=== PATIENT | female | born 1935 | race Two or more races ===

== ENCOUNTER 2020-12-14 09:30 | Outpatient (REF) | payer MEDICARE, SELFPAY ==
[2020-12-14 10:36] LABS: MANUAL DIFF FLAG NO
[2020-12-14 10:48] LABS: Basophils Percent Auto 0.5 % (0-2); Eosinophils Absolute Auto 0.9 X10*3/uL (0.0-0.4); Eosinophils Percent Auto 16.3 % (0-4); Hematocrit 33.4 % (37-47); Hemoglobin 10.8 g/dl (12.0-16.0); Lymphocytes Percent Auto 35.9 % (20-40); Mean Corpuscular HGB Conc 32.3 g/dl (31.0-35.0); Mean Corpuscular Volume 92.8 fL (80-98); Mean Platelet Volume 10.8 fL (9.4-12.3); Monocytes Absolute Auto 0.4 X10*3/uL (0.1-1.2); Monocytes Percent Auto 7.5 % (2-11); Neutrophils Absolute Auto 2.2 X10*3/uL (2.0-8.3); Neutrophils Percent Auto 39.8 % (45-73); Platelet Count 174 X10*3/uL (160-400); Red Cell Distribution Width 12.7 % (11.0-16.0); White Blood Count 5.6 X10*3/uL (4.8-10.8)
[2020-12-14 10:58] LABS: Estimated Average Glucose 131 mg/dL; Hemoglobin A1c % 6.2 %
[2020-12-14 11:19] LABS: Creatinine Urine 118.08 mg/dL; Microalbum/Creatinine Ratio Ur 77.9 ug/mg cr
[2020-12-14 11:44] LABS: Alanine Aminotransferase 13 U/L (0-31); Albumin Level 3.9 g/dL (3.5-5.0); Alkaline Phosphatase 61 U/L (39-117); Anion Gap 9 (12-20); Aspartate Amino Transferase 12 U/L (5-31); Bilirubin Direct 0.3 mg/dL (0.0-0.5); Blood Urea Nitrogen 29 mg/dL (9-16); Calcium 9.8 mg/dL (8.4-10.2); Carbon Dioxide 27 mmol/L (22-29); Chloride 107 mmol/L (96-108); Cholesterol 193 mg/dL; Estimated Glomerular Filt Rate 43; Glucose Fasting 107 mg/dL (60-99); HDL Cholesterol 41 mg/dL; LDL Cholesterol Calculated 99 mg/dl; Potassium 4.3 mmol/L (3.3-5.1); Sodium 139 mmol/L (135-145); Total Protein 7.1 g/dL (6.5-8.0); Triglycerides 265 mg/dL
== END 2020-12-14 09:31 | disposition home or self-care (01) ==
LOC: HO.LAB 09:30
PROVIDERS: PCP Nurse Practitioner Family; Visit Provider Nurse Practitioner Family
DX: Z00.00 Encounter for general adult medical examination without abnormal findings (principal)
CPT/HCPCS: 36415; 80048; 80061; 80076; 82043; 83036; 85025

== ENCOUNTER 2021-04-21 09:31 | Outpatient (REF) | payer MEDICARE, SELFPAY ==
[2021-04-21 10:23] LABS: MANUAL DIFF FLAG NO
[2021-04-21 10:28] LABS: Basophils Percent Auto 0.3 % (0-2); Eosinophils Absolute Auto 0.9 X10*3/uL (0.0-0.4); Eosinophils Percent Auto 11.8 % (0-4); Hematocrit 33.2 % (37-47); Hemoglobin 11.1 g/dl (12.0-16.0); Imm Gran Abs Auto 0.02 X10*3/uL (0.00-0.03); Imm Gran Pct Auto 0.3 % (0.0-0.4); Lymphocytes Absolute Auto 2.6 X10*3/uL (1.2-4.9); Lymphocytes Percent Auto 36.3 % (20-40); Mean Corpuscular HGB Conc 33.4 g/dl (31.0-35.0); Mean Corpuscular Hemoglobin 30.4 pg (27.0-33.0); Mean Platelet Volume 10.6 fL (9.4-12.3); Monocytes Absolute Auto 0.5 X10*3/uL (0.1-1.2); Monocytes Percent Auto 7.2 % (2-11); Neutrophils Absolute Auto 3.2 X10*3/uL (2.0-8.3); Neutrophils Percent Auto 44.1 % (45-73); Platelet Count 161 X10*3/uL (160-400); Red Blood Count 3.65 X10*6/uL (4.20-5.50); Red Cell Distribution Width 12.4 % (11.0-16.0); White Blood Count 7.2 X10*3/uL (4.8-10.8)
[2021-04-21 10:56] LABS: Estimated Average Glucose 117 mg/dL; Hemoglobin A1c % 5.7 %
[2021-04-21 11:37] LABS: Appearance Urine CLOUDY; Color Urine YELLOW; Glucose Urine UA NEG (NEG); Leukocyte Esterase Urine 1+ (NEG); Nitrite Urine NEG (NEG); PH 5.5 (5.0-8.0); Specific Gravity - Urine >= 1.030 (1.005-1.025); UACC Culture Trigger YES; Urine Blood TRACE (NEG); Urine Ketones NEG (NEG); Urine Protein TRACE MG/DL (NEG-TRACE)
[2021-04-21 11:43] LABS: TSH reflex Free T4 1.14 uIU/mL (0.32-4.0); Vitamin D 25-OH Total 27.8 ng/mL (>30)
[2021-04-21 11:54] LABS: Alanine Aminotransferase 12 U/L (0-31); Albumin Level 3.8 g/dL (3.5-5.0); Alkaline Phosphatase 65 U/L (39-117); Anion Gap 10 (12-20); Aspartate Amino Transferase 13 U/L (5-31); Bilirubin Total 0.9 mg/dL (0.0-1.0); Blood Urea Nitrogen 33 mg/dL (9-16); Calcium 10.5 mg/dL (8.4-10.2); Carbon Dioxide 25 mmol/L (22-29); Chloride 108 mmol/L (96-108); Cholesterol 176 mg/dL; Estimated Glomerular Filt Rate 39; Glucose Fasting 124 mg/dL (60-99); HDL Cholesterol 39 mg/dL; LDL Cholesterol Calculated 93 mg/dl; Sodium 139 mmol/L (135-145); Triglycerides 223 mg/dL
[2021-04-21 12:02] LABS: Creatinine Urine 156.51 mg/dL; Microalbum/Creatinine Ratio Ur 63.2 ug/mg cr
[2021-04-21 12:05] LABS: Bacteria Urine 3+ /LPF; Squamous Epithelial Cell Urine 2+ /LPF
== END 2021-04-21 09:32 | disposition home or self-care (01) ==
LOC: HO.LAB 09:31
PROVIDERS: PCP Internal Medicine; Visit Provider Internal Medicine
DX: E78.00 Pure hypercholesterolemia, unspecified (principal); E55.9 Vitamin D deficiency, unspecified; E11.22 Type 2 diabetes mellitus with diabetic chronic kidney disease; I12.9 Hypertensive chronic kidney disease with stage 1 through stage 4 chronic kidney disease, or unspecified chronic kidney disease; N18.2 Chronic kidney disease, stage 2 (mild); K20.90 Esophagitis, unspecified without bleeding; K59.00 Constipation, unspecified; E66.3 Overweight
CPT/HCPCS: 36415; 80053; 80061; 81001; 82043; 82306; 83036; 84443; 85025; 87086

== ENCOUNTER 2021-06-19 11:48 | Emergency (ER) | payer MEDICARE, SELFPAY ==
--- NOTE | ~2021-06-19 | XR_ITS ---
EXAMINATION: XR ELBOW, RIGHT CLINICAL INFORMATION: Right elbow swelling COMPARISON: None TECHNIQUE: AP, lateral, and oblique views of the right elbow. FINDINGS: The bones are normal. No fracture or joint effusion. Alignment is anatomic. Joint spaces are maintained. Soft tissue swelling of the right elbow. XR/XR elbow RT 2V IMPRESSION: Soft tissue swelling surrounding the right elbow.
[2021-06-19 12:08] VITALS: BP 145/64; PULSE 75; RESP 18; TEMP 36.8; O2SAT 97; BMI 27.1
--- NOTE | 2021-06-19 13:41 | ED_ITS ---
HPI - Extremity Problem General Chief complaint: Extremity Problem Stated complaint: R ARM SWELLING Time Seen by Provider: 06/19/21 13:39 Source: patient and family Mode of arrival: ambulatory Limitations: no limitations History of Present Illness MD Complaint: extremity pain (R elbow pain and redness) Onset (ago): day(s) (yesterday ) Pain Consistency: constant Location: right and elbow Quality: aching Radiation: none Relieving factors: nothing Exacerbating factors: range of motion and palpation Associated symptoms: denies other symptoms Related Data Home Medications Medication Instructions Recorded Confirmed docusate sodium 50 mg capsule mg PO DAILY PRN 08/18/20 04/23/21 insulin syringe-needle U-100 0.3 #10 ea 08/18/20 04/23/21 mL 31 gauge x 5/16 latanoprost 0.005 % eye drops 1 drp OPHTHALMIC (EYE) BEDTIME 08/18/20 04/23/21 blood sugar diagnostic #10 ea 10/12/20 04/23/21 Previous Rx's Medication Instructions Recorded lancets 30 gauge #100 ea 10/08/20 insulin syringe-needle U-100 1 mL 1 ml MISCELLANEOUS BID 30 Days #60 10/12/20 31 gauge x 5/16 (BD Insulin ea Syringe Ultra-Fine) insulin human U-100 NPH-regulr 35 unit SUBCUT BID #30 ml 11/07/20 70-30 mix 100 unit/mL subcutaneous susp (Novolin 70/30 U-100 Insulin) pantoprazole 40 mg tablet,delayed 40 mg PO DAILY #90 tab 11/29/20 release atorvastatin 40 mg tablet 40 mg PO DAILY 90 Days #90 tab 01/12/21 omega-3 fatty acids 1,000 mg 1,000 mg PO BID 30 Days #60 cap 01/12/21 capsule (Fish Oil Concentrate) cholecalciferol (vitamin D3) 25 25 mcg PO DAILY 90 Days #90 cap 01/15/21 mcg (1,000 unit) capsule blood sugar diagnostic #100 ea 04/23/21 dorzolamide 22.3 mg-timolol 6.8 1 drp OPHTHALMIC (EYE) BID #30 ml 04/24/21 mg/mL eye drops blood sugar diagnostic (OneTouch #100 ea 05/03/21 Ultra Test) lisinopril 40 mg tablet 40 mg PO DAILY #90 tab 10/20/21 cephalexin 500 mg capsule 500 mg PO BID 7 Days #14 cap 06/19/21 doxycycline hyclate 100 mg capsule 100 mg PO BID 7 Days #14 cap 06/19/21 ondansetron 4 mg disintegrating 4 mg PO Q8H PRN #20 tab 06/19/21 tablet oxycodone 5 mg tablet 2.5 mg PO TID PRN #8 tab 06/19/21 Allergies Allergy/AdvReac Type Severity Reaction Status Date / Time acetaminophen [Tylenol] Allergy Unknown stomach Verified 04/23/21 16:19 upset aspirin [ASA] Allergy Unknown STOMACH Verified 04/23/21 16:19 UPSET insulin isophane (NPH) Allergy Unknown choking Verified 04/23/21 16:19 [Humulin 70/30 U-100 Insulin] sensation insulin regular Allergy Unknown choking Verified 04/23/21 16:19 [Humulin 70/30 U-100 Insulin] sensation metformin AdvReac Unknown dizziness, Verified 04/23/21 16:19 stomach upset Review of Systems Review of Systems: Constitutional : No Fever, No Chills ENT/Mouth : No Ear Pain, No Hoarseness, No sore throat Eyes: No Eye Pain, No Swelling, No Redness, No Foreign Body Cardiovascular : No Chest Pain, No SOB Respiratory : No Cough, No Dyspnea Gastrointestinal : No Nausea, No Vomiting, No Diarrhea, No abdominal Pain Genitourinary : No Dysuria, No Hematuria Musculoskeletal : positive joint pain, No Myalgias, pos Joint Swelling Skin : No Skin lacerations, No rash Neuro : No Weakness, No Numbness, No Loss of Consciousness, No Dizziness, No Headache Psych : No Anxiety/Panic, No Depression Heme/Lymph: no easy bruising, no Lymphadenopathy Endocrine : No Polyuria, No Polydipsia All other systems reviewed and are negative [facility] Past Medical History Attestation statement: The following information was validated with the patient. Medical History Benign essential hypertension Chronic kidney disease, stage III (moderate) Constipation Esophagitis GERD (gastroesophageal reflux disease) Glaucoma of both eyes Hypercalcemia Lumbar spondylosis Overweight (BMI 25.0-29.9) Peripheral neuropathy Primary osteoarthritis 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 Mother Diabetes Stroke Son No problems noted. Son No problems noted. Daughter No problems noted. Social History Social History Housing: Apartment Alcohol intake: never Patient Tobacco Use Status: Never used Tobacco Second Hand Smoke Exposure: Yes Advance Directives: No Advance Directives Information Provided: No service: No Current occupational status: disabled Physical Exam Vital Signs: Vital Signs: Last Vital Signs Temp 98.3 F 06/19/21 12:08 Pulse 75 06/19/21 12:08 Resp 18 06/19/21 12:08 BP 145/64 H 06/19/21 12:08 Pulse Ox 97 06/19/21 12:08 Body Mass Index 27.1 Appearance: Alert. Oriented X3. No acute distress. Eyes: Pupils equal, round and reactive to light. ENT: Pharynx normal. Neck: Normal inspection. Neck supple. CVS: Normal heart rate and rhythm. Pulses normal. Respiratory: No respiratory distress. Breath sounds normal. Abdomen: Soft and nontender. Skin: Skin warm and dry. Normal skin color. Extremities: No lower extremity edema. R elbow olecranon mild swelling and mild erythema no extension no joint effusion very minimal distal NV intact, full ROM Neuro: Oriented X 3. No motor deficit. No sensory deficit. Course Course Course Narrative: no fevers no vomiting, no WBC count neg lactic acid - will DC home with PO antibiotics MDM - Extremity (Nontraumatic) MDM Narrative Medical decision making narrative: 85 yo female with DM, CKD, obesity, HLD, here with R elbow pain mild erythema/swelling isolated to olecranon - likely infected bursitis skin overlying is intact no joint effusion - full ROM, very mild at this time will obtain labs, start on antibiotics and instruct 24 hours outpatient oral abx and to return if this worsens - currently symptoms are very mild and PE shows no signs of septic joint. Lab Data Result diagrams: 06/19/21 14:12 06/19/21 14:12 Labs: Lab Results 06/19/21 06/19/21 06/19/21 Range/Units 14:12 14:12 14:12 WBC 10.1 (4.8-10.8) X10*3/uL RBC 3.51 L (4.20-5.50) X10*6/uL Hgb 10.7 L (12.0-16.0) g/dl Hct 32.2 L (37.0-47.0) % MCV 91.7 (80.0-98.0) fL MCH 30.5 (27.0-33.0) pg MCHC 33.2 (31.0-35.0) g/dl RDW 12.7 (11.0-16.0) % Plt Count 153 L (160-400) X10*3/uL MPV 10.5 (9.4-12.3) fL Absolute Nucleated RBC 0.000 (0.0-0.012) X10*3/uL Nucleated RBC % (auto) 0.0 (0.0-0.2) /100WBC Sodium 136 (135-145) mmol/L Potassium 4.3 (3.3-5.1) mmol/L Chloride 105 (96-108) mmol/L Carbon Dioxide 23 (22-29) mmol/L Anion Gap 12 (12-20) BUN 22 H (9-16) mg/dL Creatinine 1.28 (0.5-1.4) mg/dL Estim Creat Clear Calc 32.3 Estimated GFR 40 Random Glucose 156 H (60-115) mg/dL Lactic Acid 1.3 (0.5-2.0) mmol/L Calcium 9.5 D (8.4-10.2) mg/dL Discharge Plan Discharge Clinical Impression: Cellulitis Bursitis, olecranon Qualifiers: Laterality: right Qualified Code(s): M70.21 - Olecranon bursitis, right elbow Patient Disposition: Home, Self-Care Instructions: Cellulitis (ED), Elbow Bursitis (ED) Additional Instructions: return to ED for any worsening symptoms or concerns RETURN IF REDNESS WORSENS / SWELLING WORSENS/ FEVERS Prescriptions: New doxycycline hyclate 100 mg capsule 100 mg PO BID 7 Days Qty: 14 RF: 0 cephalexin 500 mg capsule 500 mg PO BID 7 Days Qty: 14 RF: 0 ondansetron 4 mg tablet,disintegrating 4 mg PO Q8H PRN (Reason: nausea and vomiting) Qty: 20 RF: 0 oxycodone 5 mg tablet 2.5 mg PO TID PRN (Reason: pain) Qty: 8 RF: 0 No Action (DME) lancets 30 gauge misc See Rx Instructions ea .ROUTE .MEDSUPPLY Qty: 100 RF: 0 (DME) blood sugar diagnostic Strip See Rx Instructions .ROUTE .MEDSUPPLY Qty: 10 RF: 0 Hold Instructions: Doctor's Order insulin syringe-needle U-100 [BD Insulin Syringe Ultra-Fine] 1 mL 31 gauge x 5/16 syringe 1 ml miscellaneous BID 30 Days Qty: 60 RF: 11 insulin NPH and regular human [Novolin 70/30 U-100 Insulin] 100 unit/mL (70- 30) suspension 35 unit subcut BID Qty: 30 RF: 5 pantoprazole 40 mg tablet,delayed release (DR/EC) 40 mg PO DAILY Qty: 90 RF: 1 cholecalciferol (vitamin D3) 25 mcg (1,000 unit) capsule 25 mcg PO DAILY 90 Days Qty: 90 RF: 3 dorzolamide-timolol 22.3-6.8 mg/mL drops 1 drp ophthalmic (eye) BID Qty: 30 RF: 0 (DME) OneTouch Ultra Test Strip See Rx Instructions .Route Qty: 100 RF: 0 lisinopril 40 mg tablet 40 mg PO DAILY Qty: 90 RF: 1 (DME) insulin syringe-needle U-100 0.3 mL 31 gauge x 5/16 syringe See Rx Instructions ea .ROUTE BID Qty: 10 RF: 0 latanoprost 0.005 % drops 1 drp ophthalmic (eye) BEDTIME RF: 0 Stool Softener 50 mg capsule PO DAILY PRN (Reason: constipation) RF: 0 atorvastatin 40 mg tablet 40 mg PO DAILY 90 Days Qty: 90 RF: 1 omega-3 fatty acids [Fish Oil Concentrate] 1,000 mg capsule 1,000 mg PO BID 30 Days Qty: 60 RF: 12 (DME) OneTouch Ultra Blue Test Strip Strip See Rx Instructions .ROUTE .MEDSUPPLY Qty: 100 RF: 1 Print Language: Irish
[2021-06-19] MEDS: cefEPime HCl 1 GM in 0.9 % Sodium Chloride 50 ML IV (14:13)
[2021-06-19] MEDS: Ondansetron ODT 4 MG TAB.RAPDIS TRANSLINGU (14:13)
[2021-06-19] MEDS: oxyCODONE HCl Immed Release 5 MG TABLET PO (14:13)
[2021-06-19 14:23] LABS: Hematocrit 32.2 % (37.0-47.0); Hemoglobin 10.7 g/dl (12.0-16.0); Mean Corpuscular HGB Conc 33.2 g/dl (31.0-35.0); Mean Corpuscular Hemoglobin 30.5 pg (27.0-33.0); Mean Corpuscular Volume 91.7 fL (80.0-98.0); Mean Platelet Volume 10.5 fL (9.4-12.3); Platelet Count 153 X10*3/uL (160-400); Red Blood Count 3.51 X10*6/uL (4.20-5.50); Red Cell Distribution Width 12.7 % (11.0-16.0); White Blood Count 10.1 X10*3/uL (4.8-10.8)
[2021-06-19 14:29] LABS: Lactic Acid 1.3 mmol/L (0.5-2.0)
[2021-06-19 14:35] LABS: Anion Gap 12 (12-20); Blood Urea Nitrogen 22 mg/dL (9-16); Calcium 9.5 mg/dL (8.4-10.2); Carbon Dioxide 23 mmol/L (22-29); Chloride 105 mmol/L (96-108); Creatinine Clr Calc Pharmacy 32.3; Estimated Glomerular Filt Rate 40; Glucose Random 156 mg/dL (60-115); Potassium 4.3 mmol/L (3.3-5.1); Sodium 136 mmol/L (135-145)
[2021-06-19 15:41] VITALS: BP 144/68; PULSE 74
== END 2021-06-19 15:42 | disposition home or self-care (01) ==
PROVIDERS: Emergency Provider Emergency Medicine; PCP Internal Medicine
DX: L03.113 Cellulitis of right upper limb (principal); R22.31 Localized swelling, mass and lump, right upper limb; Z79.899 Other long term (current) drug therapy
CPT/HCPCS: 36415; 73070; 80048; 83605; 85027; 87040; 96374; 99284; 99285; J0692

== ENCOUNTER 2021-07-20 09:34 | Outpatient (REF) | payer MEDICARE, SELFPAY ==
[2021-07-20 09:55] LABS: MANUAL DIFF FLAG NO
[2021-07-20 10:24] LABS: Basophils Percent Auto 0.5 % (0-2); Hematocrit 32.6 % (37.0-47.0); Hemoglobin 10.5 g/dl (12.0-16.0); Imm Gran Abs Auto 0.02 X10*3/uL (0.00-0.03); Imm Gran Pct Auto 0.3 % (0.0-0.4); Lymphocytes Absolute Auto 2.5 X10*3/uL (1.2-4.9); Lymphocytes Percent Auto 38.4 % (20-40); Mean Corpuscular HGB Conc 32.2 g/dl (31.0-35.0); Mean Corpuscular Hemoglobin 29.6 pg (27.0-33.0); Mean Corpuscular Volume 91.8 fL (80.0-98.0); Mean Platelet Volume 10.6 fL (9.4-12.3); Monocytes Absolute Auto 0.5 X10*3/uL (0.1-1.2); Monocytes Percent Auto 7.4 % (2-11); Neutrophils Absolute Auto 2.5 x10*3/uL (2.0-8.3); Neutrophils Percent Auto 38.4 % (45-73); Platelet Count 177 X10*3/uL (160-400); Red Blood Count 3.55 X10*6/uL (4.20-5.50); Red Cell Distribution Width 12.4 % (11.0-16.0); White Blood Count 6.4 X10*3/uL (4.8-10.8)
[2021-07-20 10:32] LABS: Estimated Average Glucose 126 mg/dL
[2021-07-20 10:57] LABS: Alanine Aminotransferase 17 U/L (0-31); Albumin Level 3.7 g/dL (3.5-5.0); Alkaline Phosphatase 62 U/L (39-117); Anion Gap 11 (12-20); Aspartate Amino Transferase 18 U/L (5-31); Bilirubin Total 0.8 mg/dL (0.0-1.0); Blood Urea Nitrogen 33 mg/dL (9-16); Calcium 10.1 mg/dL (8.4-10.2); Carbon Dioxide 26 mmol/L (22-29); Chloride 107 mmol/L (96-108); Cholesterol 148 mg/dL; Estimated Glomerular Filt Rate 39; Glucose Fasting 101 mg/dL (60-99); HDL Cholesterol 43 mg/dL; LDL Cholesterol Calculated 67 mg/dl; Potassium 4.6 mmol/L (3.3-5.1); Sodium 139 mmol/L (135-145); Total Protein 7.1 g/dL (6.5-8.0); Triglycerides 190 mg/dL
[2021-07-20 11:21] LABS: TSH reflex Free T4 1.74 uIU/mL (0.32-4.0); Vitamin D 25-OH Total 27.5 ng/mL (>30)
[2021-07-20 11:46] LABS: Appearance Urine CLOUDY; Color Urine YELLOW; Glucose Urine UA NEG (NEG); Leukocyte Esterase Urine 1+ (NEG); Nitrite Urine NEG (NEG); Specific Gravity - Urine >= 1.030 (1.005-1.025); UACC Culture Trigger YES; Urine Blood 1+ (NEG); Urine Ketones NEG (NEG); Urine Protein TRACE MG/DL (NEG-TRACE)
[2021-07-20 12:30] LABS: Bacteria Urine 1+ /LPF; Mucus Urine 1+ /LPF; Squamous Epithelial Cell Urine 3+ /LPF
== END 2021-07-20 09:35 | disposition home or self-care (01) ==
LOC: HO.LAB 09:34
PROVIDERS: PCP Internal Medicine; Visit Provider Internal Medicine
DX: E78.00 Pure hypercholesterolemia, unspecified (principal); E55.9 Vitamin D deficiency, unspecified; E11.9 Type 2 diabetes mellitus without complications; I10 Essential (primary) hypertension
CPT/HCPCS: 36415; 80053; 80061; 81001; 81003; 82306; 83036; 84443; 85025; 87086

== ENCOUNTER 2021-10-19 14:28 | Emergency (ER) | payer MEDICARE, SELFPAY ==
[2021-10-19 14:34] VITALS: BP 142/67; PULSE 57; RESP 18; TEMP 36.7; O2SAT 100; BMI 27.1
--- NOTE | 2021-10-19 14:41 | ECG_ITS ---
Test Reason : ALTERED Blood Pressure : / mmHG Vent. Rate : 055 BPM Atrial Rate : 055 BPM P-R Int : 160 ms QRS Dur : 080 ms QT Int : 396 ms P-R-T Axes : 015 000 056 degrees QTc Int : 378 ms Sinus bradycardia Septal infarct (cited on or before 20-AUG-2019) Abnormal ECG When compared with ECG of 20-AUG-2019 16:58, No significant changes seen Referred By: Generic ED Physician Electronically Signed By:Tate Dillon
[2021-10-19 15:12] LABS: MANUAL DIFF FLAG NO
[2021-10-19 15:13] LABS: Basophils Percent Auto 0.3 % (0-2); Eosinophils Absolute Auto 0.7 X10*3/uL (0.0-0.4); Eosinophils Percent Auto 11.1 % (0-4); Hematocrit 33.3 % (37.0-47.0); Hemoglobin 10.9 g/dl (12.0-16.0); Imm Gran Abs Auto 0.01 X10*3/uL (0.00-0.03); Imm Gran Pct Auto 0.2 % (0.0-0.4); Lymphocytes Absolute Auto 2.3 X10*3/uL (1.2-4.9); Mean Corpuscular HGB Conc 32.7 g/dl (31.0-35.0); Mean Corpuscular Hemoglobin 29.7 pg (27.0-33.0); Mean Corpuscular Volume 90.7 fL (80.0-98.0); Mean Platelet Volume 10.7 fL (9.4-12.3); Monocytes Absolute Auto 0.4 X10*3/uL (0.1-1.2); Monocytes Percent Auto 6.3 % (2-11); Neutrophils Percent Auto 46.1 % (45-73); Platelet Count 150 X10*3/uL (160-400); Red Blood Count 3.67 X10*6/uL (4.20-5.50); White Blood Count 6.5 X10*3/uL (4.8-10.8)
[2021-10-19 15:25] LABS: COVID-19 Test Negative (Negative)
[2021-10-19 15:29] LABS: Alanine Aminotransferase 11 U/L (0-31); Albumin Level 3.8 g/dL (3.5-5.0); Alkaline Phosphatase 63 U/L (39-117); Anion Gap 11 (12-20); Aspartate Amino Transferase 18 U/L (5-31); Bilirubin Total 0.7 mg/dL (0.0-1.0); Blood Urea Nitrogen 33 mg/dL (9-16); Calcium 10.1 mg/dL (8.4-10.2); Carbon Dioxide 25 mmol/L (22-29); Chloride 106 mmol/L (96-108); Creatinine Clr Calc Pharmacy 23.6; Estimated Glomerular Filt Rate 28; Glucose Random 114 mg/dL (60-115); Potassium 4.6 mmol/L (3.3-5.1); Sodium 137 mmol/L (135-145)
[2021-10-19 15:33] LABS: Troponin-I High Sensitivity 43.3 ng/L (<3.5-17.0)
== END 2021-10-19 21:03 | disposition left against medical advice (07) ==
LOC: HO.ED 21:02
PROVIDERS: Emergency Provider Emergency Medicine; PCP Internal Medicine
DX: R47.81 Slurred speech (principal); R53.1 Weakness; Z20.822 Contact with and (suspected) exposure to COVID-19; Z79.899 Other long term (current) drug therapy
CPT/HCPCS: 36415; 80053; 84484; 85025; 87635; 93005; 99282; 99283

== ENCOUNTER 2021-11-03 13:07 | Outpatient (REF) | payer MEDICARE, SELFPAY ==
--- NOTE | ~2021-11-03 | CT_ITS ---
EXAMINATION: CT HEAD WITHOUT CONTRAST CLINICAL INFORMATION: Slurred speech COMPARISON: MRI of September 14, 2016 TECHNIQUE: Contiguous axial imaging was performed from the skull base to vertex without intravenous administration of contrast. This CT examination was performed using dose optimization techniques as appropriate, variously including the following: *Automated exposure control *Adjustment of mA and/or kV according to patient size (this includes techniques or standardized protocols for targeted exams where dose is matched to indication/reason for exam; i.e. extremities or head) *Use of iterative reconstruction technique DLP: 590 mGy-cm FINDINGS: There is no evidence of acute intracranial hemorrhage. No abnormal mass effect or midline shift is seen. No extra-axial fluid collections are identified. There is periventricular white matter low density present consistent with microangiopathy. There is a region of diminished density seen along the right extreme capsule anteriorly. There is a asymmetric region of diminished density within the right centrum semiovale which could possibly represent an evolving infarct as well as a an old infarct. Calcification is seen within the vertebral arteries bilaterally and the carotid arteries. The ventricles are normal in size. There is no abnormal attenuation within the brain parenchyma. The osseous structures and soft tissues are normal. The mastoid air cells and visualized portions of the paranasal sinuses are well aerated. CT/CT head/brain wo con IMPRESSION: Findings consistent with microangiopathy. Question evolving right centrum semiovale probably infarct versus old infarct.
[2021-11-03 14:12] LABS: MANUAL DIFF FLAG NO
[2021-11-03 14:58] LABS: Basophils Percent Auto 0.3 % (0-2); Eosinophils Absolute Auto 0.9 X10*3/uL (0.0-0.4); Eosinophils Percent Auto 13.6 % (0-4); Hematocrit 33.3 % (37.0-47.0); Hemoglobin 10.7 g/dl (12.0-16.0); Imm Gran Abs Auto 0.01 X10*3/uL (0.00-0.03); Imm Gran Pct Auto 0.1 % (0.0-0.4); Lymphocytes Percent Auto 29.6 % (20-40); Mean Corpuscular HGB Conc 32.1 g/dl (31.0-35.0); Mean Corpuscular Hemoglobin 29.6 pg (27.0-33.0); Mean Corpuscular Volume 92.2 fL (80.0-98.0); Mean Platelet Volume 10.8 fL (9.4-12.3); Monocytes Absolute Auto 0.5 X10*3/uL (0.1-1.2); Monocytes Percent Auto 7.6 % (2-11); Neutrophils Absolute Auto 3.3 x10*3/uL (2.0-8.3); Neutrophils Percent Auto 48.8 % (45-73); Platelet Count 162 X10*3/uL (160-400); Red Blood Count 3.61 X10*6/uL (4.20-5.50); Red Cell Distribution Width 12.9 % (11.0-16.0); White Blood Count 6.7 X10*3/uL (4.8-10.8)
[2021-11-03 15:06] LABS: Estimated Average Glucose 123 mg/dL; Hemoglobin A1c % 5.9 %
[2021-11-03 15:31] LABS: Alanine Aminotransferase 15 U/L (0-31); Albumin Level 3.8 g/dL (3.5-5.0); Alkaline Phosphatase 62 U/L (39-117); Anion Gap 12 (12-20); Aspartate Amino Transferase 17 U/L (5-31); Bilirubin Total 0.8 mg/dL (0.0-1.0); Blood Urea Nitrogen 30 mg/dL (9-16); Calcium 9.9 mg/dL (8.4-10.2); Carbon Dioxide 25 mmol/L (22-29); Chloride 108 mmol/L (96-108); Cholesterol 152 mg/dL; Estimated Glomerular Filt Rate 45; Glucose Fasting 59 mg/dL (60-99); HDL Cholesterol 48 mg/dL; LDL Cholesterol Calculated 72 mg/dl; Potassium 4.2 mmol/L (3.3-5.1); Sodium 141 mmol/L (135-145); Total Protein 7.1 g/dL (6.5-8.0); Triglycerides 163 mg/dL
[2021-11-03 15:40] LABS: TSH reflex Free T4 1.23 uIU/mL (0.32-4.0); Vitamin D 25-OH Total 26.5 ng/mL (>30)
== END 2021-11-03 13:08 | disposition home or self-care (01) ==
LOC: HO.CT 13:07
PROVIDERS: PCP Internal Medicine; Visit Provider Nurse Practitioner Family
DX: R47.81 Slurred speech (principal); E78.00 Pure hypercholesterolemia, unspecified; I10 Essential (primary) hypertension; E55.9 Vitamin D deficiency, unspecified; E11.9 Type 2 diabetes mellitus without complications
CPT/HCPCS: 36415; 70450; 80053; 80061; 82306; 83036; 84443; 85025

== ENCOUNTER 2021-11-03 17:50 | Emergency (ER) | payer MEDICARE, SELFPAY ==
[2021-11-03 19:07] VITALS: BP 159/60; PULSE 61; RESP 16; TEMP 36.6; O2SAT 99; BMI 24.1
[2021-11-03 20:40] LABS: MANUAL DIFF FLAG NO
[2021-11-03 20:42] LABS: Basophils Percent Auto 0.4 % (0-2); Eosinophils Absolute Auto 0.9 X10*3/uL (0.0-0.4); Hemoglobin 10.7 g/dl (12.0-16.0); Imm Gran Abs Auto 0.01 X10*3/uL (0.00-0.03); Imm Gran Pct Auto 0.1 % (0.0-0.4); Lymphocytes Absolute Auto 2.6 X10*3/uL (1.2-4.9); Lymphocytes Percent Auto 35.7 % (20-40); Mean Corpuscular HGB Conc 32.4 g/dl (31.0-35.0); Mean Corpuscular Hemoglobin 30.2 pg (27.0-33.0); Mean Corpuscular Volume 93.2 fL (80.0-98.0); Mean Platelet Volume 10.4 fL (9.4-12.3); Monocytes Absolute Auto 0.6 X10*3/uL (0.1-1.2); Monocytes Percent Auto 8.5 % (2-11); Neutrophils Absolute Auto 3.1 x10*3/uL (2.0-8.3); Neutrophils Percent Auto 43.3 % (45-73); Platelet Count 158 X10*3/uL (160-400); Red Blood Count 3.54 X10*6/uL (4.20-5.50); White Blood Count 7.2 X10*3/uL (4.8-10.8)
[2021-11-03 20:55] LABS: Anion Gap 14 (12-20); Blood Urea Nitrogen 31 mg/dL (9-16); Calcium 9.8 mg/dL (8.4-10.2); Carbon Dioxide 21 mmol/L (22-29); Chloride 107 mmol/L (96-108); Creatinine Clr Calc Pharmacy 30.9; Estimated Glomerular Filt Rate 42; Glucose Random 162 mg/dL (60-115); Potassium 4.7 mmol/L (3.3-5.1); Sodium 137 mmol/L (135-145)
== END 2021-11-03 21:17 | disposition left against medical advice (07) ==
PROVIDERS: Emergency Provider Emergency Medicine; PCP Nurse Practitioner Family
DX: R47.81 Slurred speech (principal); Z79.899 Other long term (current) drug therapy
CPT/HCPCS: 36415; 80048; 85025; 99282; 99283

== ENCOUNTER 2021-11-04 12:33 | Inpatient (IN) | payer MEDICARE, SELFPAY ==
--- NOTE | ~2021-11-04 | US_ITS ---
EXAMINATION: US EXTRACRANIAL CAROTID DUPLEX, BILATERAL CLINICAL INFORMATION: This is an 86-year-old female with CVA. Carotid artery disease. COMPARISON: None TECHNIQUE: Real-time ultrasound and Doppler techniques (integrating B-mode 2-D vascular images, Doppler spectral analysis and color-flow Doppler imaging) were utilized to interrogate the extracranial carotid arteries, the vertebral arteries and proximal subclavian arteries bilaterally. The degree of stenosis is determined by criteria similar to NASCET. FINDINGS: Right Side: 1. There is mild atherosclerotic plaque seen in the bifurcation/proximal ICA region. 2. The common carotid artery PSV proximally is 87 cm/s and distally 96 cm/s. 3. The proximal internal carotid artery velocities are 87 cm/s systolic and 17 cm/s diastolic. 4. The proximal external carotid artery PSV is 87 cm/s. 5. The vertebral artery shows antegrade flow. 6. The subclavian artery waveforms are normal. Left Side: 1. There is mild atherosclerotic plaque seen in the bifurcation/proximal ICA region. 2. The common carotid artery PSV proximally is 126 cm/s and distally 81 cm/s. 3. The proximal internal carotid artery velocities are 61 cm/s systolic and 14 cm/s diastolic. 4. The proximal external carotid artery PSV is 80 cm/s. 5. The vertebral artery shows antegrade flow. 6. The subclavian artery waveforms are normal. US/US carotid duplex BI IMPRESSION: 1. RIGHT: Minimal, non-hemodynamically significant stenosis of the proximal right internal carotid artery corresponding to a 0-49% stenosis by velocity criteria. 2. LEFT: Minimal, non-hemodynamically significant stenosis of the proximal left internal carotid artery corresponding to a 0-49% stenosis by velocity criteria.
--- NOTE | ~2021-11-04 | MR_ITS ---
EXAMINATION: MR BRAIN WITHOUT CONTRAST CLINICAL INFORMATION: Evolving stroke. New weakness. COMPARISON: CT head from 11/03/2021. Brain MRI from 09/14/2016. TECHNIQUE: MRI of the brain was obtained using routine sequences without contrast. FINDINGS: There is a region of white matter diffusion weighted hyperintensity within the right centrum semiovale/batres radiata with minimally decreased to pseudonormalized values on the ADC map. Associated T2 FLAIR hyperintensity. No overt mass effect. No additional abnormal restricted diffusion. No evidence of acute or chronic hemorrhagic products on heme-sensitive imaging. Scattered periventricular, deep white matter, and brainstem T2 FLAIR hyperintensities consistent with moderate underlying microangiopathy. Few regions of cortical T1 shortening along the right insula consistent with laminar necrosis. Chronic lacunar infarcts of the bilateral caudate heads, right lentiform nucleus, and bilateral cerebellar hemispheres. Proportional prominence of the ventricles and sulcal spaces without evidence of obstructive hydrocephalus. No abnormal mass effect. No midline shift. Normal appearance of the pituitary gland. Normal positioning of the cerebellar tonsils. Normal arterial and venous vascular flow voids are present. Normal, homogeneous marrow signal. Mild mucosal thickening of the paranasal sinuses. No signal abnormalities within the mastoids. Bilateral lens extractions. MR/MR head/brain wo con IMPRESSION: 1. Developing late acute to early subacute white matter infarct within the right centrum semiovale/batres radiata. 2. No additional acute intracranial abnormalities. 3. Moderate underlying microangiopathy and generalized cerebral volume loss. Chronic lacunar infarcts of the deep nuclei and cerebellum.
[2021-11-04 13:33] VITALS: BP 139/62; PULSE 60; RESP 18; TEMP 36.6; O2SAT 99; BMI 23.6
--- NOTE | 2021-11-04 15:05 | ED_ITS ---
HPI - General Adult General Chief complaint: General Medical Stated complaint: MRI Time Seen by Provider: 11/04/21 13:06 Source: patient, family and contract implementation analyst Mode of arrival: ambulatory Limitations: no limitations History of Present Illness HPI narrative: 86 y/o female with history of HTN, HLD and DM sent into the ER for MRI of her brain. She had a CT scan done yesterday as an outpatient that showed question of evolving right centrum semiovale probably infarct vs old infarct. PCP sent in her into the ER for MRI. She reports generalized weakness for the last 2-3 weeks. She lives alone and has been having trouble doing her ADL's, family has had to come over and help out a lot. She saw her PCP yesterday who did blood work and a CT scan of her head. They were told to come to the ER for MRI because of abnormal results. Patient reports intermittent dizzy spells for the last 2-3 weeks and blurred vision. She also reports her swallowing feels different but she is able to eat and drink normally. She states she has numbness in both of her legs, left worse than right and it is worse at night. MD complaint: generalized weakness Onset (ago): week(s) (2) Location: left, right, upper extremity and lower extremity Radiation: non-radiation Severity: moderate Pain Consistency: constant Relieving factors: none Exacerbating factors: none Associated symptoms: malaise and other (dizziness) Treatments prior to arrival: none Related Data Home Medications Medication Instructions Recorded Confirmed insulin syringe-needle U-100 0.3 #10 ea 08/18/20 10/21/21 mL 31 gauge x 5/16 latanoprost 0.005 % eye drops 1 drp OPHTHALMIC (EYE) BEDTIME 08/18/20 11/04/21 blood sugar diagnostic #10 ea 10/12/20 10/21/21 docusate sodium 100 mg capsule 100 mg PO DAILY PRN 11/04/21 11/04/21 insulin human U-100 NPH-regulr 30 unit SUBCUT BID 11/04/21 11/04/21 70-30 mix 100 unit/mL subcutaneous susp (Novolin 70/30 U-100 Insulin) omega 4-fqq-mja-fish oil 1,000 mg 1 cap PO BID 11/04/21 11/04/21 (120 mg-180 mg) capsule (Fish Oil) Previous Rx's Medication Instructions Recorded lancets 30 gauge #100 ea 10/08/20 atorvastatin 40 mg tablet 40 mg PO DAILY 90 Days #90 tab 01/12/21 cholecalciferol (vitamin D3) 25 25 mcg PO DAILY 90 Days #90 cap 01/15/21 mcg (1,000 unit) capsule blood sugar diagnostic #100 ea 04/23/21 dorzolamide 22.3 mg-timolol 6.8 1 drp OPHTHALMIC (EYE) BID #30 ml 04/24/21 mg/mL eye drops ondansetron 4 mg disintegrating 4 mg PO Q8H PRN #20 tab 06/19/21 tablet blood sugar diagnostic (OneTouch 1 strip MISCELLANEOUS TID #100 07/28/21 Ultra Test) strip polyethylene glycol 3350 17 17 g PO DAILY 30 Days #510 g 07/28/21 gram/dose oral powder (Miralax) pantoprazole 40 mg tablet,delayed 40 mg PO DAILY #90 tab 10/19/21 release insulin syringe-needle U-100 1 mL 1 ml MISCELLANEOUS BID 30 Days #60 10/29/21 31 gauge x 5/16 (BD Insulin ea Syringe Ultra-Fine) lisinopril 40 mg tablet 40 mg PO DAILY #90 tab 11/01/21 Allergies Allergy/AdvReac Type Severity Reaction Status Date / Time aspirin [ASA] Allergy Unknown STOMACH Verified 10/21/21 15:21 UPSET insulin isophane (NPH) Allergy Unknown choking Verified 10/21/21 15:21 [Humulin 70/30 U-100 Insulin] sensation insulin regular Allergy Unknown choking Verified 10/21/21 15:21 [Humulin 70/30 U-100 Insulin] sensation metformin AdvReac Unknown dizziness, Verified 10/21/21 15:21 stomach upset Review of Systems Review of Systems: Constitutional: No Fever, No Chills ENT/Mouth: No sore throat, No Rhinorrhea, + Swallowing Difficulty Eyes: No Eye Pain, No Swelling, No Redness, +blurred vision Cardiovascular: No Chest Pain, No SOB, No Orthopnea, No Edema Respiratory: No Cough, No Sputum, No Wheezing, No dyspnea Gastrointestinal: No Nausea, No Vomiting, No Diarrhea, No abdominal Pain Genitourinary: No Dysuria, No Urinary Frequency, No Hematuria Musculoskeletal: No joint pain, No Myalgias Skin: No Skin Lesions, No rash Neuro: + Weakness, +Numbness, + Dizziness, No Headache Psych: No Anxiety/Panic, No Depression Heme/Lymph: No Bruising, No Lymphadenopathy Endocrine: No Polyuria, No Polydipsia [facility] Past Medical History Medical History Benign essential hypertension Chronic kidney disease, stage III (moderate) Constipation Esophagitis GERD (gastroesophageal reflux disease) Glaucoma of both eyes Hypercalcemia Lumbar spondylosis Overweight (BMI 25.0-29.9) Peripheral neuropathy Primary osteoarthritis 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 Mother Diabetes Stroke Son No problems noted. Son No problems noted. Daughter No problems noted. Social History Social History Housing: Apartment Alcohol intake: never Patient Tobacco Use Status: Never used Tobacco e-Cigarette/Vaping Use: Never Used Second Hand Smoke Exposure: Yes Advance Directives: No Advance Directives Information Provided: No service: No Current occupational status: disabled Physical Exam ED Vital Signs: Vital Signs - 24 hr 11/04/21 13:33 Temperature 98 F Pulse Rate 60 Respiratory Rate 18 Blood Pressure 139/62 Pulse Oximetry 99 BMI result Body Mass Index 23.6 Appearance: Alert elderly female laying in the stretcher.. Oriented X3. No acute distress. Eyes: Pupils equal, round and reactive to light. EOMI, no nystagmus ENT: Pharynx normal. Neck: Normal inspection. Neck supple. CVS: Normal heart rate and rhythm. Pulses normal. Respiratory: No respiratory distress. Breath sounds normal. Abdomen: Soft and nontender. +BS x4 Skin: Skin warm and dry. Normal skin color. Normal skin turgor. No rashes. Extremities: No lower extremity edema. Neuro: awake and alert, equal and symmetrical strength throughout, normal finger to nose bilaterally, unable to perform heel to beltran due to leg pain, reports of LLE sensory deficits of light touch to left lower leg and foot. normal speech. CN II-XII groslly intact. no facial droop. visual field deficits peripherally in both eyes (unclear if acute or chronic) NIH Stroke Scale Internal: Initial- Upon Arrival Level of Consciousness: Alert Level of Consciousness Questions: Answers both questions correctly Level of Consciousness Commands: Performs both tasks correctly Best Gaze: Normal Visual: Partial hemianopia Facial Palsy: Normal Motor Arm (Right): No drift Motor Arm (Left): No drift Motor Leg (Right): Some effort against gravity Motor Leg (Left): Some effort against gravity Limb Ataxia: Absent Sensory: Normal Best Language: No aphasia Dysarthia: Normal Extinction and Inattention: No abnormality Score: 5 Course Course Course Narrative: 86-year-old female with history of diabetes, HTN, HLD presents to the ER for evaluation of an abnormal CT of the head that was done yesterday as an outpatient. There is question of an evolving stroke on the CT scan. Her sympto ms include 2 weeks of weakness, intermittent dizziness, visual changes, change in her swallow. She had lab work done yesterday that was unremarkable. Given her symptom onset she is not a tPA candidate at this time. Her MRI is pending. She has no focal deficits on examination, however she does have some visual field losses and reports of blurred vision, unclear if this is acute or chronic. She has a history of glaucoma in both eyes and is difficult to get an accurate history and examination from. Reevaluation(s) Reevaluation #1: MRI today showing a developing late acute to early subacute white matter infarct within the right centrum semiovale/batres radiata. There is also moderate underlying microangiopathy and generalized cerebral volume loss. 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 Patient will require admission for further evaluation and monitoring. online merchandising coordinator made aware. Plan for admission to the hospital. Consultations Consultation #1: Marline nutrition coordinator Medical Decision Making Lab Data Result diagrams: 11/04/21 17:42 ECG Data Attestation: I personally reviewed and interpreted this ECG as follows: Prior ECG tracings: available for review Interpretation: Sinus bradycardia, HR 56 bpm, normal SC interval, no ST segment elevations or depressions Critical Care Time Critical Care Time Critical Care Time: Yes Total Critical Care Time: 35 Attestation: I have personally provided critical care time exclusive of time spent on separately billable procedures. Time includes review of lab data, radiology results, discussion with consultants, and monitoring for potential decompensation. Intervention performed as documented. Discharge Plan Discharge Clinical Impression: Acute CVA (cerebrovascular accident) Patient Disposition: Admitted As Inpatient Prescriptions: No Action (DME) lancets 30 gauge misc See Rx Instructions ea .ROUTE .MEDSUPPLY Qty: 100 0RF Rx Instructions: As directed (DME) blood sugar diagnostic Strip See Rx Instructions .ROUTE .MEDSUPPLY Qty: 10 0RF Hold Instructions: Doctor's Order Label Comments: CHECKS SUGAR BID Rx Instructions: As directed cholecalciferol (vitamin D3) 25 mcg (1,000 unit) capsule 25 mcg PO DAILY 90 Days Qty: 90 3RF Rx Instructions: 1 capsule Orally Once a day dorzolamide-timolol 22.3-6.8 mg/mL drops 1 drp ophthalmic (eye) BID Qty: 30 0RF OneTouch Ultra Test Strip 1 strip miscellaneous TID Qty: 100 12RF pantoprazole 40 mg tablet,delayed release (DR/EC) 40 mg PO DAILY Qty: 90 0RF insulin syringe-needle U-100 [BD Insulin Syringe Ultra-Fine] 1 mL 31 gauge x 5/16 syringe 1 ml miscellaneous BID 30 Days Qty: 60 11RF lisinopril 40 mg tablet 40 mg PO DAILY Qty: 90 0RF ondansetron 4 mg tablet,disintegrating 4 mg PO Q8H PRN (Reason: nausea and vomiting) Qty: 20 0RF docusate sodium 100 mg Capsule 100 mg PO DAILY PRN (Reason: Constipation) 0RF omega 2-soe-voj-fish oil [Fish Oil] 1,000 mg (120 mg-180 mg) Capsule 1 cap PO BID 0RF Novolin 70/30 U-100 Insulin 100 unit/mL (70-30) suspension 30 unit subcut BID 0RF (DME) insulin syringe-needle U-100 0.3 mL 31 gauge x 5/16 syringe See Rx Instructions ea .ROUTE BID Qty: 10 0RF Rx Instructions: As directed latanoprost 0.005 % drops 1 drp ophthalmic (eye) BEDTIME 0RF atorvastatin 40 mg tablet 40 mg PO DAILY 90 Days Qty: 90 1RF (DME) OneTouch Ultra Blue Test Strip Strip See Rx Instructions .ROUTE .MEDSUPPLY Qty: 100 1RF Rx Instructions: BID polyethylene glycol 3350 [Miralax] 17 gram/dose powder 17 g PO DAILY 30 Days Qty: 510 5RF
--- NOTE | 2021-11-04 16:48 | ECG_ITS ---
Test Reason : ?STROKE Blood Pressure : / mmHG Vent. Rate : 056 BPM Atrial Rate : 056 BPM P-R Int : 180 ms QRS Dur : 080 ms QT Int : 392 ms P-R-T Axes : 050 004 051 degrees QTc Int : 378 ms Sinus bradycardia Otherwise normal ECG When compared with ECG of 19-OCT-2021 14:45, No significant change was found Referred By: Brandee Bailey Electronically Signed By:CHAYA BRITO
--- NOTE | 2021-11-04 17:31 | PHA.MEDREC ---
Pharmacy Consult ? Medication Reconciliation Pharmacy has completed the medication reconciliation. Spoke with family member in ED who helps with medications. Pt only took Lisinopril and Atorvastatin today.
[2021-11-04 17:53] LABS: Appearance Urine CLEAR; Color Urine YELLOW; Glucose Urine UA NEG (NEG); Leukocyte Esterase Urine NEG (NEG); Nitrite Urine NEG (NEG); Specific Gravity - Urine 1.025 (1.005-1.025); UACC Culture Trigger NO; Urine Blood TRACE (NEG); Urine Ketones NEG (NEG); Urine Protein 1+ MG/DL (NEG-TRACE)
[2021-11-04 18:00] LABS: Bacteria Urine TRACE /LPF; Hyaline Casts Urine 0-2 /LPF; Mucus Urine TRACE /LPF; Squamous Epithelial Cell Urine 1+ /LPF; WBC Urine 0-2 /HPF (0-4)
[2021-11-04 18:06] LABS: Alanine Aminotransferase 15 U/L (0-31); Albumin Level 3.5 g/dL (3.5-5.0); Alkaline Phosphatase 63 U/L (39-117); Anion Gap 14 (12-20); Aspartate Amino Transferase 16 U/L (5-31); Bilirubin Direct 0.2 mg/dL (0.0-0.5); Bilirubin Total 0.6 mg/dL (0.0-1.0); Blood Urea Nitrogen 29 mg/dL (9-16); Calcium 9.3 mg/dL (8.4-10.2); Carbon Dioxide 22 mmol/L (22-29); Chloride 107 mmol/L (96-108); Creatinine Clr Calc Pharmacy 31.6; Estimated Glomerular Filt Rate 43; Glucose Random 222 mg/dL (60-115); Potassium 4.7 mmol/L (3.3-5.1); Sodium 138 mmol/L (135-145); Total Protein 6.9 g/dL (6.5-8.0)
[2021-11-04 18:07] LABS: COVID-19 Test Negative (Negative)
--- NOTE | 2021-11-04 18:14 | P.HPHOSP_ITS ---
History of Present Illness Date of Service: 11/04/21 Chief Complaint: weakness, dizziness History obtained in Salvadorean from patient and her daughter. 86yo F pt of Dr Pierce with HTN/HLD/DM2 and without CAD/PAD/CVA who presented to her primary care doctor's office 2 wk ago with vague complaints of weakness, dizziness/lightheadedness, and confusion. She reports some left leg weakness and numbness, though her right leg is also numb. He ordered a CT, which was done yesterday and showed possible evolving versus old CVA of the right centrum semiovale on a background of chronic microangiopathy. She was sent in for an MRI, which showed a developing late acute to early subacute white matter infarct within the right centrum semiovale/batres radiata. She reports swallowing feels different but is able to eat and drink normally. She has chronic vision problems due to cataracts and glaucoma but also notes worsening vision over the last few weeks. Denies headache, chest pain, dyspnea, cough, or leg swelling. She lives alone and prior to the above events, ambulated with a cane and prepared her own meals, though with daily check-ins from her family. Review of Systems Review of Systems: Yes all other systems are reviewed and are negative [facility] Medical History Benign essential hypertension Chronic kidney disease, stage III (moderate) Constipation Esophagitis GERD (gastroesophageal reflux disease) Glaucoma of both eyes Hypercalcemia Lumbar spondylosis Overweight (BMI 25.0-29.9) Peripheral neuropathy Primary osteoarthritis of both knees Primary osteoarthritis of left foot Pure hypercholesterolemia Type 2 diabetes mellitus with diabetic chronic kidney disease Vitamin D deficiency Family History Father No problems noted. Mother Diabetes Stroke Son No problems noted. Son No problems noted. Daughter No problems noted. Surgical History History of eye surgery History of tubal ligation Social History Housing: Apartment Alcohol intake: never Patient Tobacco Use Status: Never used Tobacco e-Cigarette/Vaping Use: Never Used Second Hand Smoke Exposure: Yes Advance Directives: No Advance Directives Information Provided: No service: No Current occupational status: disabled Meds Allergies Allergy/AdvReac Type Severity Reaction Status Date / Time aspirin [ASA] Allergy Unknown STOMACH Verified 10/21/21 15:21 UPSET insulin isophane (NPH) Allergy Unknown choking Verified 10/21/21 15:21 [Humulin 70/30 U-100 Insulin] sensation insulin regular Allergy Unknown choking Verified 10/21/21 15:21 [Humulin 70/30 U-100 Insulin] sensation metformin AdvReac Unknown dizziness, Verified 10/21/21 15:21 stomach upset Active Medications: Current Medications Acetaminophen (Acetaminophen 325 Mg Tablet) 650 mg PO Q6H PRN PRN Reason: Pain, Mild (Pain Scale 1-3) Aspirin (Aspirin 81 Mg Tab.Chew) 81 mg PO DAILY [facility] Dextrose (Dextrose 50 % 25 Gm/50 Ml Vial) 25 gm IVPUSH Q15M PRN; Protocol PRN Reason: per Hypoglycemia Standing Ord. Enoxaparin Sodium (Enoxaparin Sodium 40 Mg/0.4 Ml Syringe) 40 mg SUBCUT Q24H KATELIN Glucose (Glucose Gel 15 Gm Gel..Gram.) 15 gm PO Q15M PRN; Protocol PRN Reason: per Hypoglycemia Standing Ord. Insulin Human Lispro (Insulin Lispro 100 Unit/Ml 3 Ml Vial) 0 unit SUBCUT QIDACHS [facility]; Protocol Ondansetron HCl (Ondansetron Hcl 4 Mg/2 Ml Vial) 4 mg IVPUSH Q8H PRN PRN Reason: Nausea and Vomiting Pharmacy Consult (Consult Rx Perform Med Rec) 1 each MISCELLANE ONCE PRN PRN Reason: Consult order Sodium Chloride (0.9 % Sodium Chloride Flush 3 Ml Syringe) 3 ml IVFLUSH QSHIFT [facility] Home Medications Medication Instructions Recorded Confirmed Last Taken Type insulin syringe-needle U-100 0.3 #10 ea 08/18/20 10/21/21 Unknown History mL 31 gauge x 01/03 latanoprost 0.005 % eye drops 1 drp OPHTHALMIC (EYE) BEDTIME 08/18/20 11/04/21 11/03/21 History blood sugar diagnostic #10 ea 10/12/20 10/21/21 Unknown History docusate sodium 100 mg capsule 100 mg PO DAILY PRN 11/04/21 11/04/21 Unknown History insulin human U-100 NPH-regulr 30 unit SUBCUT BID 11/04/21 11/04/21 11/03/21 History 70-30 mix 100 unit/mL subcutaneous susp (Novolin 70/30 U-100 Insulin) omega 4-akl-tul-fish oil 1,000 mg 1 cap PO BID 11/04/21 11/04/21 11/03/21 History (120 mg-180 mg) capsule (Fish Oil) Physical Exam Vital Signs and Narrative: Vital Signs: Last Vital Signs Temp 98 F 11/04/21 13:33 Pulse 60 11/04/21 13:33 Resp 18 11/04/21 13:33 BP 139/62 11/04/21 13:33 Pulse Ox 99 11/04/21 13:33 BMI result Body Mass Index 23.6 Gen: in no acute distress HEENT: sclera anicteric, moist mucus membranes Neck: supple Lungs: clear to auscultation bilaterally Heart: regular rate and rhythm, no murmurs Abd: soft, non-tender, non-distended Ext: no edema Skin: warm/well-perfused Neuro: alert and oriented x3, no facial droop, question of L hemianopia though underlying vision is poor, no pronator drift, LLE 4/5 strength Psych: appropriate affect Results Labs CBC and Chem 7: 11/04/21 17:42 Labs: Laboratory Results - last 24 hr 11/04/21 11/04/21 11/04/21 17:42 17:42 17:42 Anion Gap 14 Estim Creat Clear Calc 31.6 Estimated GFR 43 Random Glucose 222 H Calcium 9.3 Magnesium 2.0 Total Bilirubin 0.6 Direct Bilirubin 0.2 AST 16 ALT 15 Alkaline Phosphatase 63 Total Protein 6.9 Albumin 3.5 Urine Color YELLOW Urine Appearance CLEAR Urine pH 6.0 Ur Specific [place] 1.025 Urine Protein 1+ H Urine Glucose (UA) NEG Urine Ketones NEG Urine Blood TRACE Urine Nitrite NEG Ur Leukocyte Esterase NEG Urine RBC 1-4 Urine WBC 0-2 Ur Squamous Epith Cells 1+ Urine Bacteria TRACE Hyaline Casts 0-2 Urine Mucus TRACE COVID-19 (ТАТЬЯНА) Negative COVID-19 Clin Com See Note ITS Impressions Brain MRI 11/04/21 15:54 IMPRESSION: 1. Developing late acute to early subacute white matter infarct within the right centrum semiovale/batres radiata. 2. No additional acute intracranial abnormalities. 3. Moderate underlying microangiopathy and generalized cerebral volume loss. Chronic lacunar infarcts of the deep nuclei and cerebellum. Imaging Radiologist's Impressions: Impressions Brain MRI 11/04/21 15:54 IMPRESSION: 1. Developing late acute to early subacute white matter infarct within the right centrum semiovale/batres radiata. 2. No additional acute intracranial abnormalities. 3. Moderate underlying microangiopathy and generalized cerebral volume loss. Chronic lacunar infarcts of the deep nuclei and cerebellum. 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, allow permissive hypertension, continue statin, start ASA 81 mg daily, TTE, carotid dopplers # HTN - hold lisinopril to allow permissive hypertension # HLD - continue statin # DM2 - A1c 5.9; correction-dose lispro # VTE ppx - LMWH # code - full In my professional opinion, patient likely will stay 2 midnights in hospital due to the above reasons [stroke workup] Quality Stroke Does the patient have a stroke diagnosis?: Yes Reason for No Anti-thrombotic by Day Two: N/A - Med Ordered VTE Prior VTE?: No VTE Risk Level:: Medical - moderate - high VTE Device Contraindication: N/A - Device Ordered VTE Drug Contraindication: N/A - Med Ordered
[2021-11-04 18:45] VITALS: BP 162/66; PULSE 63; RESP 17; TEMP 36.3; O2SAT 100
--- NOTE | 2021-11-04 19:01 | MHC.STROKE ---
11/04/21 at 1720, NOTIFIED BY ED GEORGETTE MANTILLA OF THIS SUBACUTE STROKE PATIENT THAT CAME IN FOR A MRI TODAY. I MET WITH THE PATIENT AND THE DAUGHTER, SHE PASSED THE NURSING SWALLOW SCREEN DESPITE C/O SWALLOWING ISSUES. I DID NOT NOTICE ANY DELAY OR DIFFICULTY WITH SWALLOWING. I DID INITIATE STROKE EDUCATION AND REVIEWED HER STROKE RISK FACTORS. ALL STROKE ORDERS ARE IN PLACE AND I WILL CONTINUE TO FOLLOW.
[2021-11-04 19:03] LABS: MANUAL DIFF FLAG NO
[2021-11-04 19:04] LABS: Glucose, Whole Blood 193 mg/dL (60-115)
[2021-11-04 19:12] LABS: Basophils Percent Auto 0.4 % (0-2); Eosinophils Absolute Auto 0.8 X10*3/uL (0.0-0.4); Eosinophils Percent Auto 11.4 % (0-4); Hematocrit 31.6 % (37.0-47.0); Hemoglobin 10.2 g/dl (12.0-16.0); Imm Gran Abs Auto 0.01 X10*3/uL (0.00-0.03); Imm Gran Pct Auto 0.1 % (0.0-0.4); Lymphocytes Absolute Auto 2.3 X10*3/uL (1.2-4.9); Lymphocytes Percent Auto 32.5 % (20-40); Mean Corpuscular HGB Conc 32.3 g/dl (31.0-35.0); Mean Corpuscular Hemoglobin 29.7 pg (27.0-33.0); Mean Corpuscular Volume 92.1 fL (80.0-98.0); Mean Platelet Volume 10.9 fL (9.4-12.3); Monocytes Absolute Auto 0.6 X10*3/uL (0.1-1.2); Monocytes Percent Auto 8.1 % (2-11); Neutrophils Absolute Auto 3.4 x10*3/uL (2.0-8.3); Neutrophils Percent Auto 47.5 % (45-73); Platelet Count 145 X10*3/uL (160-400); Red Blood Count 3.43 X10*6/uL (4.20-5.50); Red Cell Distribution Width 12.8 % (11.0-16.0); White Blood Count 7.2 X10*3/uL (4.8-10.8)
[2021-11-04] MEDS: Aspirin 81 MG TAB.CHEW PO (19:22)
[2021-11-04] MEDS: Atorvastatin Calcium 40 MG TABLET PO (19:22)
--- NOTE | 2021-11-04 19:24 | PC.NURSE ---
PT WILL BE MOVED TO OVERFLOW WERE SHE WILL BE PLACED ON MONITOR REPORT GIVEN TO ALBAN BURTON.
[2021-11-04 20:02] VITALS: BP 176/57; PULSE 54; RESP 18; TEMP 36.5; O2SAT 99
[2021-11-04] MEDS: Enoxaparin Sodium 40 MG/0.4 ML SYRINGE SUBCUT (20:36)
[2021-11-04 21:41] VITALS: BP 180/74; PULSE 62; RESP 18; TEMP 36.6; O2SAT 96
[2021-11-04] MEDS: Insulin Lispro 100 UNIT/ML 3 ML VIAL SUBCUT (21:52)
[2021-11-04] MEDS: 0.9 % Sodium Chloride Flush 3 ML SYRINGE IVFLUSH (21:53)
[2021-11-04 21:55] LABS: Glucose, Whole Blood 201 mg/dL (60-115)
[2021-11-04 23:16] VITALS: BP 175/74; PULSE 55; RESP 14; TEMP 36.4; O2SAT 97
[2021-11-05 03:43] VITALS: BP 151/70; PULSE 55; RESP 16; TEMP 36.4; O2SAT 97
[2021-11-05] MEDS: Omeprazole 20 MG CAPSULE.DR PO (05:58)
[2021-11-05 07:29] VITALS: BP 180/86; PULSE 64; RESP 18; TEMP 36.6; O2SAT 99
[2021-11-05 07:36] LABS: Glucose, Whole Blood 139 mg/dL (60-115)
[2021-11-05] MEDS: Cholecalciferol (Vitamin D3) 25 MCG TABLET PO (07:47)
[2021-11-05] MEDS: 0.9 % Sodium Chloride Flush 3 ML SYRINGE IVFLUSH (07:47)
[2021-11-05] MEDS: Aspirin 81 MG TAB.CHEW PO (07:47)
[2021-11-05] MEDS: Atorvastatin Calcium 40 MG TABLET PO (07:47)
[2021-11-05] MEDS: Dorzolamide/Timolo 2.23%/0.68% 10 ML DRBTL 1 DROP EYE-BOTH (07:50)
--- NOTE | 2021-11-05 08:00 | CA_ITS ---
Transthoracic Echocardiogram Patient (Last, First, Middle): Shiloh Galeana, Gender: Female Date of : 1935 Age: 86 Procedure Date: 11/05/2021 Procedure Type: Transthoracic Echocardiogram Location: S3E Height: 165.1 cm Weight: 65.77 kg BSA: 1.73 m2 Heart Rate: bpm BP: 151 / 70 mmHg Residential Appraiser: Referring MD: Sydnee White MD Symptoms: CVA Study Quality: Fair ECG Rhythm: Sinus Conclusions: - The left ventricular systolic function is normal. The calculated ejection fraction is 59% by biplane method. - There is mild calcification of the aortic valve. - There is mild calcification of the aortic valve. - There is mild mitral valve regurgitation. - There is mild mitral valve regurgitation. Findings Left Ventricle Normal left ventricular cavity size. There is mildly increased left ventricular wall thickness. The left ventricular systolic function is normal. The calculated ejection fraction is 59% by biplane method. There is no evidence of regional wall motion abnormalities. E/E prime ratio is >15, consistent with elevated filling pressures. Evidence suggests grade I (mild) diastolic dysfunction. Right Ventricle Normal right ventricular cavity size and systolic function. Atria The left atrium is likely dilated. The right atrium is normal in size. Aortic Valve There is a normal trileaflet aortic valve. There is mild calcification of the aortic valve. There is no aortic valve stenosis. There is no aortic valve regurgitation. Mitral Valve The mitral valve appears normal. There is mild mitral valve regurgitation. There is no mitral valve stenosis. Pulmonic Valve The pulmonic valve was not well visualized. Tricuspid Valve Normal tricuspid valve structure. There is trace tricuspid valve regurgitation. The pulmonary artery systolic pressure is normal. Great Vessels The aortic annulus, sinuses of valsalva, and asc aorta are normal in size. Venous The inferior vena cava is normal in size and collapses greater than 50% with inspiration. Pericardium/Pleural There is a trivial pericardial effusion. Prior Study Comparison No prior study available for comparison. Measurements 2D Linear Measurements IVSd: 1.02 0.6-0.9/0.6-1.0 cm LVIDd: 4.02 3.9-5.3/4.2-5.9 cm LVIDd Index: 2.32 2.4-3.2/2.2-3.1 cm/m2 LVIDs: 2.23 2.0-3.6 cm LVPWd: 1.10 0.7-1.1 cm Ao Root: 2.40 2.1-3.5 cm LA Diam: 4.70 2.7-3.8/3.0-4.0 cm LAIDs Index: 2.72 1.5-2.3 cm/m2 LV Mass: 173.17 67-162/88-224 g LV Mass Index: 100.10 43-95/49-115 g/m2 LVOT Diam: 2.00 3.0+(-)1.3 cm 2D Systolic Function EF 4C: 57.20 >55% EF 2C: 60.20 >55% EF BiP: 58.90 >55% Mitral Valve MV Pk E: 0.87 MV PK A: 0.95 MV Decel Time: 197.00 E/A: 0.90 E'Lateral: 3.92 E'Medial: 4.90 E/E' Med: 17.70 E/E' Lat: 22.10 PHT: 58.00 MVA PHT: 3.79 Decel Rapides: 4.39 Aortic Valve AoV Pk Rubén: 1.99 AoV Mn Rubén: 1.26 AoV VTI: 0.50 AoV Pk Grad: 16.00 Aov Mn Grad: 8.00 NATIVIDAD Cont.VTI: 2.00 LVOT LVOT Pk Rubén: 1.21 LVOT Mn Rubén: 0.72 LVOT VTI: 0.32 LVOT Pk Grad: 6.00 LVOT Mn Grad: 3.00 LVOT Diam: 2.00 LVOT Area: 3.14 Diastolic Function MV Pk E: 0.87 MV Pk A: 0.95 E/A: 0.90 E'Medial: 4.90 E/E' Med: 17.70 E' Laterial: 3.92 E/E' Lat: 22.10 Right Ventricle TAPSE (mm): 22.00 TVS' Rubén: 17.00 Tricuspid Valve TR Pk Rubén: 2.57 TR Pk Grad: 26.00 Great Vessels Aorta Ao Root-2D: 2.40 2.0-3.7 cm Sinus of Valsalva: 2.40 2.0-3.[address] Ridge: 2.90 1.7-3.4 cm Ao Asc: 2.90 2.1-3.4 cm Pulmonary Valve PV Pk Rubén: 1.45 Peak PV Grad: 8.00 Updated in Other Vendor System with Status of Final Colt Baker MD electronically signed on 11/05/2021 1:29:27 PM with status of Final
[2021-11-05 10:31] VITALS: BP 180/86; PULSE 64; O2SAT 99
[2021-11-05 10:47] VITALS: BP 165/66; PULSE 64; RESP 18; TEMP 37.3; O2SAT 98
--- NOTE | 2021-11-05 11:11 | MHC.SLORD ---
Speech Language Pathology Order Status: Regular and Thin Pt seen at bedside, with family member present, tolerating full and regular diet without signs and symptoms of dysphagia or concerns regarding airway safety. Eating and drinking independently with appropriate timing and clearance.
[2021-11-05 11:14] LABS: Glucose, Whole Blood 128 mg/dL (60-115)
--- NOTE | 2021-11-05 13:07 | P.F2F_ITS ---
Service Date Service Date: 11/05/21 Encounter Date of encounter: 11/05/21 Reasons for Services Signs and symptoms assessed: weakness Reason for physical therapy: home safety and mobility, therapeutic exercises, gait/transfer training, assess need for DME, ADL training and energy conservation Reason for occupational therapy: home safety and mobility, therapeutic exercises, gait/transfer training, assess need for DME and energy conservation MD Overseeing Care: Aris Pierce Homebound: Leaving the home is medically contraindicated at this time without the asist of a device and/or another person due th the listed conditions above and below. Reason homebound: unsteady gait / fall risk and leg weakness Certification: Based on the above findings, I certify that this patient is confined to the home and needs intermittent intermediate care, physical therapy and/or speech therapy, or continues to need occupational therapy. The patient is under my care, and I have initiated the establishment of the plan of care. The patient will be followed by a physician who will periodically review the plan of care.
--- NOTE | 2021-11-05 14:42 | MHC.CM.PN ---
IMM 11/05/21, EMR REVIEWED, PT ADMITTED S/P SUBACUTE CVA, CM CONTACTED PT'S DTR/HCP/ELECTROPHYSIOLOGY NURSE PRACTITIONER PEDRO SHERIN at [phone], PEDRO REPORTS PT LIVES ALONE IN AN APT, HAS A CAN, SHOWER BENCH AND GRAB BARS IN BR, IRIS IS ALSO PT'S ELECTROPHYSIOLOGY NURSE PRACTITIONER 15.5HRS A WK THROUGH [facility], PEDRO REPORTS PT WILL STAY W/HER UPON D/C, PEDRO REPORTING SHE FEELS PT COULD USE A WALKER AND HOSPITALIST WILL PROVIDE A SCRIPT FOR PT, PT'S PCP VERIFIED [facility], PEDRO REPORTS SHE IS PT'S HCP AND COPY HAS BEEN REQUESTED, PT COVID VACCINATED W/PFIZER X2. D/C PLAN: HOME W/[facility] FOR OT/PT, DTR PEDRO FOR TRANSPORT.
--- NOTE | 2021-11-05 14:47 | PM.DS ---
DS: Providers Provider Date of Service: 11/05/21 Date of admission: 11/04/21 18:11 Primary care physician: Aris Pierce MD Consults: 11/04/21 17:27 Consult to Neurology Routine Consulting Provider: [facility] Reason for consultation: CVA DS: Diagnosis Discharge Diagnosis (1) Acute CVA (cerebrovascular accident): Status: Acute DS: Summary Hospital Course Hospital Course: from my admission H+P, 11/04/21: 86yo F pt of Dr Pierce with HTN/HLD/DM2 and without CAD/PAD/CVA who presented to her primary care doctor's office 2 wk ago with vague complaints of weakness, dizziness/lightheadedness, and confusion.? She reports some left leg weakness and numbness, though her right leg is also numb.? ? He ordered a CT, which was done yesterday and showed possible evolving versus old CVA of the right centrum semiovale on a background of chronic microangiopathy.? She was sent in for an MRI, which showed a developing late acute to early subacute white matter infarct within the right centrum semiovale/batres radiata.? She reports swallowing feels different but is able to eat and drink normally.? She has chronic vision problems due to cataracts and glaucoma but also notes worsening vision over the last few weeks.? Denies headache, chest pain, dyspnea, cough, or leg swelling. She lives alone and prior to the above events, ambulated with a cane and prepared her own meals, though with daily check-ins from her family. She was admitted to the hospital. No AF on telemetry and no significant structural heart disease or carotid stenosis. LLE weakness improved. She passed a swallow evaluation. She was placed on aspirin for secondary prevention and statin was intensified. She was discharged home with [facility] services for home PT and OT. Time Spent with Patient Time attestation: Total time spent providing and/or coordinating discharge services: Discharge coordination time: Greater than 30 minutes Quality: Stroke Does the patient have a stroke diagnosis?: Yes Reason for No Anti-thrombotic at DC: N/A - Med Ordered Reason for No Anticoagulant at DC: Not indicated Reason Not Initiating IV-Tpa: Not indicated Reason for No Anti-thrombotic by Day Two: N/A - Med Ordered Reason for No Statin at DC: N/A - Med Ordered Physical Exam Vital Signs: Vital Signs: Last Vital Signs Temp 99.1 F 11/05/21 10:47 Pulse 64 11/05/21 10:47 Resp 18 11/05/21 10:47 BP 165/66 H 11/05/21 10:47 Pulse Ox 98 11/05/21 10:47 BMI result Body Mass Index 23.6 Gen: in no acute distress HEENT: sclera anicteric, moist mucus membranes Neck: supple Lungs: clear to auscultation bilaterally Heart: regular rate and rhythm, no murmurs Abd: soft, non-tender, non-distended Ext: no edema Skin: warm/well-perfused Neuro: alert and oriented x3, LLE 4/5 strenght Psych: appropriate affect DS: Data Data Completed and Pending Completed studies during hospitalization [Text1]: Laboratory Results WBC 7.2 X10*3/uL (4.8-10.8) 11/04/21 18:53 RBC 3.43 X10*6/uL (4.20-5.50) L 11/04/21 18:53 Hgb 10.2 g/dl (12.0-16.0) L 11/04/21 18:53 Hct 31.6 % (37.0-47.0) L 11/04/21 18:53 MCV 92.1 fL (80.0-98.0) 11/04/21 18:53 MCH 29.7 pg (27.0-33.0) 11/04/21 18:53 MCHC 32.3 g/dl (31.0-35.0) 11/04/21 18:53 RDW 12.8 % (11.0-16.0) 11/04/21 18:53 Plt Count 145 X10*3/uL (160-400) L 11/04/21 18:53 MPV 10.9 fL (9.4-12.3) 11/04/21 18:53 Immature Gran % (Auto) 0.1 % (0.0-0.4) 11/04/21 18:53 Neut % (Auto) 47.5 % (45-73) 11/04/21 18:53 Lymph % (Auto) 32.5 % (20-40) 11/04/21 18:53 [place] % (Auto) 8.1 % (2-11) 11/04/21 18:53 Eos % (Auto) 11.4 % (0-4) H 11/04/21 18:53 Baso % (Auto) 0.4 % (0-2) 11/04/21 18:53 Lymph # (Auto) 2.3 X10*3/uL (1.2-4.9) 11/04/21 18:53 [place] # (Auto) 0.6 X10*3/uL (0.1-1.2) 11/04/21 18:53 Eos # (Auto) 0.8 X10*3/uL (0.0-0.4) H 11/04/21 18:53 Baso # (Auto) 0.0 X10*3/uL (0.0-0.2) 11/04/21 18:53 Abs Immat Gran (auto) 0.01 X10*3/uL (0.00-0.03) 11/04/21 18:53 Absolute Neuts (auto) 3.4 x10*3/uL (2.0-8.3) 11/04/21 18:53 Absolute Nucleated RBC 0.000 X10*3/uL (0.0-0.012) 11/04/21 18:53 Nucleated RBC % (auto) 0.0 /100WBC (0.0-0.2) 11/04/21 18:53 Sodium 138 mmol/L (135-145) 11/04/21 17:42 Potassium 4.7 mmol/L (3.3-5.1) 11/04/21 17:42 Chloride 107 mmol/L (96-108) 11/04/21 17:42 Carbon Dioxide 22 mmol/L (22-29) 11/04/21 17:42 Anion Gap 14 (12-20) 11/04/21 17:42 BUN 29 mg/dL (9-16) H 11/04/21 17:42 Creatinine 1.19 mg/dL (0.5-1.4) 11/04/21 17:42 Estim Creat Clear Calc 31.6 11/04/21 17:42 Estimated GFR 43 11/04/21 17:42 POC Glucose 128 mg/dL (60-115) H 11/05/21 10:54 Random Glucose 222 mg/dL (60-115) H 11/04/21 17:42 Calcium 9.3 mg/dL (8.4-10.2) 11/04/21 17:42 Magnesium 2.0 mg/dL (1.6-2.6) 11/04/21 17:42 Total Bilirubin 0.6 mg/dL (0.0-1.0) 11/04/21 17:42 Direct Bilirubin 0.2 mg/dL (0.0-0.5) 11/04/21 17:42 AST 16 U/L (5-31) 11/04/21 17:42 ALT 15 U/L (0-31) 11/04/21 17:42 Alkaline Phosphatase 63 U/L (39-117) 11/04/21 17:42 Total Protein 6.9 g/dL (6.5-8.0) 11/04/21 17:42 Albumin 3.5 g/dL (3.5-5.0) 11/04/21 17:42 Urine Color YELLOW 11/04/21 17:42 Urine Appearance CLEAR 11/04/21 17:42 Urine pH 6.0 (5.0-8.0) 11/04/21 17:42 Ur Specific Pelzer 1.025 (1.005-1.025) 11/04/21 17:42 Urine Protein 1+ MG/DL (NEG-TRACE) H 11/04/21 17:42 Urine Glucose (UA) NEG MG/DL (NEG) 11/04/21 17:42 Urine Ketones NEG MG/DL (NEG) 11/04/21 17:42 Urine Blood TRACE (NEG) 11/04/21 17:42 Urine Nitrite NEG (NEG) 11/04/21 17:42 Ur Leukocyte Esterase NEG (NEG) 11/04/21 17:42 Urine RBC 1-4 /HPF (0) 11/04/21 17:42 Urine WBC 0-2 /HPF (0-4) 11/04/21 17:42 Ur Squamous Epith Cells 1+ /LPF 11/04/21 17:42 Urine Bacteria TRACE /LPF 11/04/21 17:42 Hyaline Casts 0-2 /LPF 11/04/21 17:42 Urine Mucus TRACE /LPF 11/04/21 17:42 COVID-19 (ТАТЬЯНА) Negative (Negative) 11/04/21 17:42 COVID-19 Clin Com See Note 11/04/21 17:42 Impressions Brain MRI 11/04/21 15:54 IMPRESSION: 1. Developing late acute to early subacute white matter infarct within the right centrum semiovale/batres radiata. 2. No additional acute intracranial abnormalities. 3. Moderate underlying microangiopathy and generalized cerebral volume loss. Chronic lacunar infarcts of the deep nuclei and cerebellum. Carotid Doppler Study 11/04/21 18:34 IMPRESSION: 1. RIGHT: Minimal, non-hemodynamically significant stenosis of the proximal right internal carotid artery corresponding to a 0-49% stenosis by velocity criteria. 2. LEFT: Minimal, non-hemodynamically significant stenosis of the proximal left internal carotid artery corresponding to a 0-49% stenosis by velocity criteria. TTE 11/05/21 - The left ventricular systolic function is normal.? The ? calculated ejection fraction is 59% by biplane method. ? - There is mild calcification of the aortic valve. ? - There is mild calcification of the aortic valve. ? - There is mild mitral valve regurgitation.? - There is mild mitral valve regurgitation.? Discharge Plan Discharge Patient Disposition: Home Health Service Discharge Diagnosis: stroke Referrals: Diana SIMPOSN [Outside] - 3-5 Days (HOME PHYSICAL AND OCCUPATIONAL THERAPY) Aris Pierce MD [Primary Care Provider] - 1 Week Discharge Medications: New atorvastatin 80 mg tablet 80 mg PO BEDTIME Qty: 30 0RF aspirin 81 mg tablet,chewable 81 mg PO DAILY Qty: 30 0RF Continued (DME) lancets 30 gauge misc See Rx Instructions ea .ROUTE .MEDSUPPLY Qty: 100 0RF Rx Instructions: As directed (DME) blood sugar diagnostic Strip See Rx Instructions .ROUTE .MEDSUPPLY Qty: 10 0RF Hold Instructions: Doctor's Order Label Comments: CHECKS SUGAR BID Rx Instructions: As directed cholecalciferol (vitamin D3) 25 mcg (1,000 unit) capsule 25 mcg PO DAILY 90 Days Qty: 90 3RF Rx Instructions: 1 capsule Orally Once a day dorzolamide-timolol 22.3-6.8 mg/mL drops 1 drp ophthalmic (eye) BID Qty: 30 0RF OneTouch Ultra Test Strip 1 strip miscellaneous TID Qty: 100 12RF pantoprazole 40 mg tablet,delayed release (DR/EC) 40 mg PO DAILY Qty: 90 0RF insulin syringe-needle U-100 [BD Insulin Syringe Ultra-Fine] 1 mL 31 gauge x 5/16 syringe 1 ml miscellaneous BID 30 Days Qty: 60 11RF lisinopril 40 mg tablet 40 mg PO DAILY Qty: 90 0RF ondansetron 4 mg tablet,disintegrating 4 mg PO Q8H PRN (Reason: nausea and vomiting) Qty: 20 0RF docusate sodium 100 mg Capsule 100 mg PO DAILY PRN (Reason: Constipation) 0RF omega 8-lzf-fxk-fish oil [Fish Oil] 1,000 mg (120 mg-180 mg) Capsule 1 cap PO BID 0RF Novolin 70/30 U-100 Insulin 100 unit/mL (70-30) suspension 30 unit subcut BID 0RF (DME) insulin syringe-needle U-100 0.3 mL 31 gauge x 5/16 syringe See Rx Instructions ea .ROUTE BID Qty: 10 0RF Rx Instructions: As directed latanoprost 0.005 % drops 1 drp ophthalmic (eye) BEDTIME 0RF (DME) blood sugar diagnostic Strip See Rx Instructions .ROUTE .MEDSUPPLY Qty: 100 1RF Rx Instructions: BID polyethylene glycol 3350 [Miralax] 17 gram/dose powder 17 g PO DAILY 30 Days Qty: 510 5RF Discontinued atorvastatin 40 mg tablet 40 mg PO DAILY 90 Days Qty: 90 1RF Discharge Orders: Discharge Order (Routine); Ordered 11/05/21 Ordered By: Sydnee White Diet: diabetic diet and low salt diet Activity on Discharge: As tolerated Stand Alone Forms: Patient Portal Discharge page Care Plan Goals: recovery from stroke prevention of future strokes Health Concerns: stroke Plan of Treatment: start aspirin 81 mg daily increase atorvastatin to 80 mg daily follow up with Primary Care in 1-2 weeks home PT, OT Assessment: see Discharge Summary Patient Instructions: Ischemic Stroke (GEN)
== END 2021-11-05 15:38 | disposition home health service (06) | DRG 65 ==
LOC: HO.ED 17:57 → HO.EDOVER 18:24 → HO.S3 20:01
PROVIDERS: Physician Assistant; Admitting Provider Family Medicine; Emergency Provider Emergency Medicine; PCP Internal Medicine; Visit Provider Family Medicine
DX: I63.9 Cerebral infarction, unspecified (principal); G81.94 Hemiplegia, unspecified affecting left nondominant side; I12.9 Hypertensive chronic kidney disease with stage 1 through stage 4 chronic kidney disease, or unspecified chronic kidney disease; E11.22 Type 2 diabetes mellitus with diabetic chronic kidney disease; I25.10 Atherosclerotic heart disease of native coronary artery without angina pectoris; E78.5 Hyperlipidemia, unspecified; E11.51 Type 2 diabetes mellitus with diabetic peripheral angiopathy without gangrene; N18.30 Chronic kidney disease, stage 3 unspecified; Z20.822 Contact with and (suspected) exposure to COVID-19; Z88.6 Allergy status to analgesic agent; Z79.4 Long term (current) use of insulin; Z79.82 Long term (current) use of aspirin; Z79.899 Other long term (current) drug therapy
CPT/HCPCS: 70551; 80048; 80076; 81001; 82947; 83735; 85025; 87635; 93005; 93306; 93880; 97162; 97165; 99285; 99291; J1650

== ENCOUNTER 2021-11-18 15:23 | Outpatient (REF) | payer MEDICARE, SELFPAY ==
--- NOTE | ~2021-11-18 | US_ITS ---
EXAMINATION: US RETROPERITONEAL LIMITED (RENAL ONLY) CLINICAL INFORMATION: Chronic kidney disease, worsening kidney function. COMPARISON: None TECHNIQUE: Real-time imaging of the kidneys. FINDINGS: RIGHT KIDNEY: 9.0 x 4.9 x 5.9 cm (SAG x AP x TRV). The kidney is normal in size, contour, and echogenicity. Renal cortical thickness is normal. Small echogenic foci visualized throughout the renal hilum. LEFT KIDNEY: 9.6 x 4.9 x 5.0 cm (SAG x AP x TRV). The kidney is normal in size, contour, and echogenicity. Renal cortical thickness is normal. Small echogenic foci visualized throughout the renal hilum. 8 mm cyst in the midpole. US/US renal BI IMPRESSION: No hydronephrosis. Echogenic foci could reflect a combination of small stones versus vascular calcifications..
== END 2021-11-18 15:24 | disposition home or self-care (01) ==
LOC: HO.HMGCX 15:23
PROVIDERS: Visit Provider Nurse Practitioner Family
DX: R79.89 Other specified abnormal findings of blood chemistry (principal)
CPT/HCPCS: 76775

== ENCOUNTER 2021-11-22 09:31 | Outpatient (REF) | payer MEDICARE, SELFPAY ==
[2021-11-22 11:16] LABS: Anion Gap 11 (12-20); Blood Urea Nitrogen 34 mg/dL (9-16); Calcium 10.4 mg/dL (8.4-10.2); Carbon Dioxide 26 mmol/L (22-29); Chloride 106 mmol/L (96-108); Estimated Glomerular Filt Rate 36; Glucose Random 170 mg/dL (60-115); Potassium 4.9 mmol/L (3.3-5.1); Sodium 138 mmol/L (135-145)
[2021-11-22 12:08] LABS: Folate 18.9 ng/mL (> or = 4.0); Vitamin B12 497 pg/mL (200-900)
[2021-11-22 12:30] LABS: Creatinine Urine 132.48 mg/dL; Microalbum/Creatinine Ratio Ur 144.1 ug/mg cr
== END 2021-11-22 09:32 | disposition home or self-care (01) ==
LOC: HO.LAB 09:31
PROVIDERS: Absent Provider Internal Medicine; PCP Nurse Practitioner Family; Visit Provider Nurse Practitioner Family
DX: E11.9 Type 2 diabetes mellitus without complications (principal); R79.89 Other specified abnormal findings of blood chemistry; R53.83 Other fatigue
CPT/HCPCS: 36415; 80048; 82043; 82607; 82746

== ENCOUNTER → 2022-01-13 13:44 | Outpatient (BNVA) | payer MEDICARE, SELFPAY | PROVIDERS: PCP Internal Medicine | DX: R32 Unspecified urinary incontinence (principal) | CPT/HCPCS: 51798; 99202 ==

== ENCOUNTER 2022-02-22 09:18 | Outpatient (REF) | payer MEDICARE, SELFPAY ==
[2022-02-22 09:32] LABS: MANUAL DIFF FLAG NO
[2022-02-22 09:52] LABS: Basophils Percent Auto 0.5 % (0-2); Eosinophils Absolute Auto 0.6 X10*3/uL (0.0-0.4); Eosinophils Percent Auto 10.6 % (0-4); Hematocrit 30.6 % (37.0-47.0); Hemoglobin 10.3 g/dl (12.0-16.0); Imm Gran Abs Auto 0.01 X10*3/uL (0.00-0.03); Imm Gran Pct Auto 0.2 % (0.0-0.4); Lymphocytes Absolute Auto 2.2 X10*3/uL (1.2-4.9); Lymphocytes Percent Auto 36.5 % (20-40); Mean Corpuscular HGB Conc 33.7 g/dl (31.0-35.0); Mean Corpuscular Hemoglobin 30.9 pg (27.0-33.0); Mean Corpuscular Volume 91.9 fL (80.0-98.0); Mean Platelet Volume 10.7 fL (9.4-12.3); Monocytes Absolute Auto 0.5 X10*3/uL (0.1-1.2); Monocytes Percent Auto 7.6 % (2-11); Neutrophils Absolute Auto 2.7 x10*3/uL (2.0-8.3); Neutrophils Percent Auto 44.6 % (45-73); Platelet Count 144 X10*3/uL (160-400); Red Blood Count 3.33 X10*6/uL (4.20-5.50); Red Cell Distribution Width 12.3 % (11.0-16.0)
[2022-02-22 09:56] LABS: Appearance Urine HAZY; Color Urine YELLOW; Glucose Urine UA NEG (NEG); Leukocyte Esterase Urine 2+ (NEG); Nitrite Urine NEG (NEG); PH 5.5 (5.0-8.0); Specific Gravity - Urine 1.025 (1.005-1.025); UACC Culture Trigger YES; Urine Blood 2+ (NEG); Urine Ketones NEG (NEG); Urine Protein 1+ MG/DL (NEG-TRACE)
[2022-02-22 10:06] LABS: Estimated Average Glucose 131 mg/dL; Hemoglobin A1c % 6.2 %
[2022-02-22 10:14] LABS: Bacteria Urine 2+ /LPF; Squamous Epithelial Cell Urine 3+ /LPF; WBC Urine 30-49 /HPF (0-4)
[2022-02-22 10:18] LABS: Creatinine Urine 95.69 mg/dL; Microalbum/Creatinine Ratio Ur 290.5 ug/mg cr
[2022-02-22 10:24] LABS: Alanine Aminotransferase 16 U/L (0-31); Albumin Level 3.9 g/dL (3.5-5.0); Alkaline Phosphatase 50 U/L (39-117); Anion Gap 9 (12-20); Aspartate Amino Transferase 19 U/L (5-31); Bilirubin Total 0.9 mg/dL (0.0-1.0); Blood Urea Nitrogen 38 mg/dL (9-16); Calcium 9.9 mg/dL (8.4-10.2); Carbon Dioxide 26 mmol/L (22-29); Chloride 108 mmol/L (96-108); Cholesterol 130 mg/dL; Estimated Glomerular Filt Rate 39; Glucose Fasting 103 mg/dL (60-99); HDL Cholesterol 45 mg/dL; LDL Cholesterol Calculated 61 mg/dl; Potassium 4.4 mmol/L (3.3-5.1); Sodium 139 mmol/L (135-145); Triglycerides 122 mg/dL
[2022-02-22 10:47] LABS: TSH reflex Free T4 1.43 uIU/mL (0.32-4.0); Vitamin D 25-OH Total 37.6 ng/mL (>30)
[2022-02-22 11:10] LABS: Folate > 20.0 ng/mL (> or = 4.0); Vitamin B12 524 pg/mL (200-900)
== END 2022-02-22 09:19 | disposition home or self-care (01) ==
LOC: HO.LAB 09:18
PROVIDERS: PCP Internal Medicine; Visit Provider Internal Medicine
DX: E55.9 Vitamin D deficiency, unspecified (principal); E78.00 Pure hypercholesterolemia, unspecified; I10 Essential (primary) hypertension; E53.8 Deficiency of other specified B group vitamins; E11.9 Type 2 diabetes mellitus without complications
CPT/HCPCS: 36415; 80053; 80061; 81001; 82043; 82306; 82607; 82746; 83036; 84443; 85025; 87086

== ENCOUNTER → 2022-02-28 09:07 | Outpatient (BNVA) | payer MEDICARE, SELFPAY | PROVIDERS: PCP Internal Medicine | DX: R32 Unspecified urinary incontinence (principal) | CPT/HCPCS: Q3014 ==

== ENCOUNTER 2022-05-05 09:41 | Outpatient (REF) | payer OTHER, SELFPAY ==
[2022-05-05 10:03] LABS: MANUAL DIFF FLAG NO
[2022-05-05 10:20] LABS: Basophils Percent Auto 0.6 % (0-2); Eosinophils Absolute Auto 1.1 X10*3/uL (0.0-0.4); Hemoglobin 10.4 g/dl (12.0-16.0); Imm Gran Abs Auto 0.02 X10*3/uL (0.00-0.03); Imm Gran Pct Auto 0.3 % (0.0-0.4); Lymphocytes Absolute Auto 2.2 X10*3/uL (1.2-4.9); Lymphocytes Percent Auto 31.3 % (20-40); Mean Corpuscular HGB Conc 33.5 g/dl (31.0-35.0); Mean Corpuscular Hemoglobin 30.6 pg (27.0-33.0); Mean Corpuscular Volume 91.2 fL (80.0-98.0); Mean Platelet Volume 10.4 fL (9.4-12.3); Monocytes Absolute Auto 0.5 X10*3/uL (0.1-1.2); Monocytes Percent Auto 6.7 % (2-11); Neutrophils Absolute Auto 3.3 x10*3/uL (2.0-8.3); Neutrophils Percent Auto 46.1 % (45-73); Platelet Count 140 X10*3/uL (160-400); Red Cell Distribution Width 12.6 % (11.0-16.0); White Blood Count 7.2 X10*3/uL (4.8-10.8)
[2022-05-05 10:29] LABS: Estimated Average Glucose 131 mg/dL; Hemoglobin A1c % 6.2 %
[2022-05-05 10:58] LABS: Alanine Aminotransferase 18 U/L (0-31); Albumin Level 3.8 g/dL (3.5-5.0); Alkaline Phosphatase 46 U/L (39-117); Anion Gap 13 (12-20); Aspartate Amino Transferase 19 U/L (5-31); Bilirubin Total 0.9 mg/dL (0.0-1.0); Blood Urea Nitrogen 35 mg/dL (9-16); Carbon Dioxide 24 mmol/L (22-29); Chloride 107 mmol/L (96-108); Cholesterol 137 mg/dL; Estimated Glomerular Filt Rate 37; Glucose Fasting 130 mg/dL (60-99); HDL Cholesterol 44 mg/dL; Iron 107 mcg/dL (30-160); LDL Cholesterol Calculated 60 mg/dl; Percent Iron Saturation 34 % (15-50); Potassium 4.3 mmol/L (3.3-5.1); Sodium 140 mmol/L (135-145); Total Iron Binding Capacity 317 mcg/dL (228-428); Triglycerides 168 mg/dL; Unsaturated Iron Binding 210 ug/dL
[2022-05-05 11:21] LABS: TSH reflex Free T4 1.61 uIU/mL (0.32-4.0); Vitamin D 25-OH Total 44.8 ng/mL (>30)
== END 2022-05-05 09:42 | disposition home or self-care (01) ==
LOC: HO.LAB 09:41
PROVIDERS: PCP Internal Medicine; Visit Provider Internal Medicine
DX: E11.9 Type 2 diabetes mellitus without complications (principal); I10 Essential (primary) hypertension; D50.9 Iron deficiency anemia, unspecified; E55.9 Vitamin D deficiency, unspecified; E78.00 Pure hypercholesterolemia, unspecified
CPT/HCPCS: 36415; 80053; 80061; 82306; 82668; 83036; 83540; 84443; 85025

== ENCOUNTER 2022-09-06 13:09 | Outpatient (REF) | payer OTHER, SELFPAY ==
--- NOTE | ~2022-09-06 | XR_ITS ---
EXAMINATION: XR SKELETAL SURVEY CLINICAL INFORMATION: Question lytic lesions. COMPARISON: None. TECHNIQUE: Whole body bone survey was performed. FINDINGS: LATERAL SKULL: No lytic or sclerotic process seen. The paravertebral soft tissues are normal. CERVICAL SPINE: There is maintained cervical lordosis. The vertebral heights, alignment and disc heights are normal. No visible acute fracture, dislocation, lytic or sclerotic process seen. THORACIC SPINE: There is maintained thoracic kyphosis is mild dextroscoliosis of mid thoracic spine. No lytic or sclerotic process seen. The paravertebral soft tissues are normal. No aggressive lytic or sclerotic process seen. Mild degenerative disc changes seen at T12-L1 disc level with ventral spondylosis. LUMBAR SPINE: There is mild scoliosis. Lumbar lordosis is maintained normal. Grade 1 anterolisthesis L4 over L5. No aggressive lytic or sclerotic process seen. The SI joints are symmetrical. PELVIS: There is normal symmetry of bilateral hip joints and SI joints with mild pelvic tilt. No bony erosive changes. No acute fracture or lytic process. The paravertebral soft tissues are normal. CHEST: The lungs are well expanded and clear. Heart size and progress clarities normal. No gross bony abnormalities seen. BILATERAL HUMERI. There is no lytic or sclerotic process seen. No fracture. The soft tissues are normal. BILATERAL RADIUS AND ULNA: No lytic or sclerotic process seen. No fracture noted. The soft tissues are normal. BILATERAL FEMUR: There is no fracture, lytic or sclerotic process seen. There is no dislocation or bony erosive changes. The soft tissues are normal. BILATERAL TIBIA AND FIBULA: No lytic or sclerotic process seen XR/XR bone survey IMPRESSION: Unremarkable whole-body bone survey.
[2022-09-06 13:29] LABS: MANUAL DIFF FLAG NO
[2022-09-06 14:07] LABS: Appearance Urine Cloudy; Color Urine Yellow; Glucose Urine UA Negative (Negative); Leukocyte Esterase Urine Moderate (2+) (Negative); Nitrite Urine Negative (Negative); PH 5.5 (5.0-9.0); UMIC TRIGGER UACC YES; Urine Blood Small (1+) (Negative); Urine Ketones Negative (Negative); Urine Protein 100 (2+) mg/dL (Neg-Trace)
[2022-09-06 14:13] LABS: Bacteria Urine None Seen (None Seen); Hyaline Casts Urine 0-2 /LPF (0-2); UACC Culture Trigger YES; WBC Urine >50 /HPF (0-5)
[2022-09-06 14:16] LABS: Basophils Percent Auto 0.5 % (0-2); Eosinophils Absolute Auto 0.8 X10*3/uL (0.0-0.4); Eosinophils Percent Auto 13.3 % (0-4); Hematocrit 29.4 % (37.0-47.0); Hemoglobin 9.8 g/dl (12.0-16.0); Imm Gran Abs Auto 0.01 X10*3/uL (0.00-0.03); Imm Gran Pct Auto 0.2 % (0.0-0.4); Lymphocytes Absolute Auto 1.8 X10*3/uL (1.2-4.9); Lymphocytes Percent Auto 30.5 % (20-40); Mean Corpuscular HGB Conc 33.3 g/dl (31.0-35.0); Mean Corpuscular Hemoglobin 30.9 pg (27.0-33.0); Mean Corpuscular Volume 92.7 fL (80.0-98.0); Mean Platelet Volume 11.2 fL (9.4-12.3); Monocytes Absolute Auto 0.3 X10*3/uL (0.1-1.2); Monocytes Percent Auto 5.6 % (2-11); Neutrophils Percent Auto 49.9 % (45-73); Platelet Count 143 X10*3/uL (160-400); Red Blood Count 3.17 X10*6/uL (4.20-5.50); Red Cell Distribution Width 12.5 % (11.0-16.0)
[2022-09-06 14:49] LABS: Creatinine, mg/dL 86.03; Protein mg/dL 53 mg/dL
[2022-09-06 15:03] LABS: Erythrocyte Sedimentation Rate 18 MM/HR (0-20)
[2022-09-06 15:15] LABS: Estimated Average Glucose 126 mg/dL
[2022-09-06 15:57] LABS: Alanine Aminotransferase 26 U/L (0-31); Albumin Level 3.7 g/dL (3.5-5.0); Alkaline Phosphatase 43 U/L (39-117); Anion Gap 11 (12-20); Aspartate Amino Transferase 22 U/L (5-31); Blood Urea Nitrogen 34 mg/dL (9-16); C Reactive Protein < 0.10 mg/dL (< or = 0.50); Carbon Dioxide 26 mmol/L (22-29); Chloride 106 mmol/L (96-108); Cholesterol 120 mg/dL; Estimated Glomerular Filt Rate 36; Glucose Fasting 150 mg/dL (60-99); HDL Cholesterol 40 mg/dL; LDL Cholesterol Calculated 36 mg/dl; Potassium 4.5 mmol/L (3.3-5.1); Sodium 138 mmol/L (135-145); Total Protein 6.9 g/dL (6.5-8.0); Triglycerides 224 mg/dL
[2022-09-06 16:09] LABS: Creatinine, 24Hr Urine 0.5 G/Day (1.0-2.0); Protein 24 Hr Urine 318 mg/Day (<150); Total Volume 24 Hour Urine 600 mL
[2022-09-06 16:15] LABS: TSH reflex Free T4 0.88 uIU/mL (0.32-4.0)
[2022-09-12 21:04] LABS: Kappa Measured 24Hr Urine 3.52 mg/dL (<2.00); Kappa, Total 24Hr Urine 21.12 mg/24 h; Lambda Measured, 24Hr Urine 1.14 mg/dL (<2.00); Lambda, Total 24Hr Urine 6.84 mg/24 h
== END 2022-09-06 13:10 | disposition home or self-care (01) ==
LOC: HO.XRAY 13:09
PROVIDERS: PCP Internal Medicine; Visit Provider Internal Medicine
DX: E11.9 Type 2 diabetes mellitus without complications (principal); I10 Essential (primary) hypertension; E55.9 Vitamin D deficiency, unspecified; M79.7 Fibromyalgia; M19.072 Primary osteoarthritis, left ankle and foot; D64.9 Anemia, unspecified; E78.00 Pure hypercholesterolemia, unspecified; R30.0 Dysuria; R82.81 Pyuria
CPT/HCPCS: 36415; 77075; 80053; 80061; 81001; 82306; 83036; 83883; 84156; 84443; 85025; 85652; 86140; 86335; 87086

== ENCOUNTER 2022-11-15 12:47 | Emergency (ER) | payer OTHER, SELFPAY ==
[2022-11-15 12:52] VITALS: BP 125/72; PULSE 63; RESP 18; TEMP 36.6; O2SAT 98; BMI 22.6
--- NOTE | 2022-11-15 12:53 | ED_ITS ---
HPI - Skin/Abscess/Foreign Bdy General Chief complaint: General Medical Stated complaint: back pain and rash on abd to r side Time Seen by Provider: 11/15/22 12:56 Source: patient and family (Daughter at bedside) Mode of arrival: ambulatory Limitations: language barrier (Cambodian-speaking) History of Present Illness HPI narrative: 87-year-old female with a past medical history of diabetes, anemia, anxiety, CVA with chronic slurred speech, CKD stage 3, glaucoma both eyes, osteoarthritis, peripheral neuropathy, esophagitis, hypertension and GERD who is presenting to the ER with her daughter due to patient speaks and rate complaints of a rash to the right side of her abdomen/back that started on Monday that is very painful and itchy. Reports that she is unsure if it is related to her anemia injection shot that she received on Monday. She denies any other symptoms related to this. MD complaint: rash Onset (ago): day(s) (Two days) Location: generalized (Right side of abdomen and back) Quality: burning, constant and pruritic Pain Consistency: constant Relieving factors: none Exacerbating factors: none Context: none Associated symptoms: denies other symptoms Treatments prior to arrival: none Related Data Home Medications Medication Instructions Recorded Confirmed insulin syringe-needle U-100 0.3 #10 ea 08/18/20 11/07/22 mL 31 gauge x 5/16 blood sugar diagnostic #10 ea 10/12/20 11/07/22 docusate sodium 100 mg capsule 100 mg PO DAILY PRN Constipation 11/04/21 11/07/22 omega 0-kke-yog-fish oil 1,000 mg 1 cap PO BID 11/04/21 11/07/22 (120 mg-180 mg) capsule (Fish Oil) Previous Rx's Medication Instructions Recorded lancets 30 gauge #100 ea 10/08/20 blood sugar diagnostic #100 ea 04/23/21 dorzolamide 22.3 mg-timolol 6.8 1 drp ophthalmic (eye) BID #30 mL 04/24/21 mg/mL eye drops ondansetron 4 mg disintegrating 4 mg PO Q8H PRN nausea and 06/19/21 tablet vomiting #20 tabs walker #1 ea 11/05/21 latanoprost 0.005 % eye drops 1 drp ophthalmic (eye) BEDTIME 11/30/21 #2.5 mL sennosides 8.6 mg tablet (Senna 17.2 mg PO BEDTIME PRN 03/01/22 Lax) constipation 30 days #60 tabs oxybutynin chloride 10 mg 10 mg PO DAILY OAB 30 days #90 tabs 03/07/22 tablet,extended release 24 hr aspirin 81 mg tablet,delayed 81 mg PO DAILY 90 days #90 tabs 05/01/22 release blood sugar diagnostic (OneTouch 1 strip miscellaneous TID for 07/22/22 Ultra Test strips) diabetes mellitus #100 strips lisinopril 40 mg tablet 40 mg PO DAILY 90 days #90 tabs 07/22/22 insulin syringe-needle U-100 1 mL 1 ml miscellaneous BID 30 days #60 09/14/22 31 gauge x 5/16 (BD Insulin ea Syringe Ultra-Fine) gabapentin 100 mg capsule 100 mg PO BEDTIME 30 days #30 caps 09/20/22 pantoprazole 40 mg tablet,delayed 40 mg PO DAILY #90 tabs 10/10/22 release atorvastatin 80 mg tablet 80 mg PO BEDTIME #90 tabs 10/14/22 cholecalciferol (vitamin D3) 25 25 mcg PO DAILY 90 days #90 caps 10/14/22 mcg (1,000 unit) capsule duloxetine 30 mg capsule,delayed 30 mg PO DAILY 30 days #30 caps 10/14/22 release insulin human U-100 NPH-regulr 30 unit (0.3 mL) subcut BID 10/28/22 70-30 mix 100 unit/mL subcutaneous diabetes 30 days #18 mL susp (Novolin 70/30 U-100 Insulin) hydroxyzine HCl 25 mg tablet 25 mg PO TID PRN anxiety 10 days 11/07/22 #30 tabs oxycodone 5 mg tablet 5 mg PO Q6H PRN pain #14 tabs 11/15/22 prednisone 20 mg tablet 40 mg PO DAILY inflammation 5 days 11/15/22 #10 tabs valacyclovir 1 gram tablet 1,000 mg PO TID 14 days #42 tabs 11/15/22 (Valtrex) Allergies Allergy/AdvReac Type Severity Reaction Status Date / Time aspirin [ASA] Allergy Unknown STOMACH Verified 11/07/22 15:45 UPSET insulin isophane (NPH) Allergy Unknown choking Verified 11/07/22 15:45 [Humulin 70/30 U-100 Insulin] sensation insulin regular Allergy Unknown choking Verified 11/07/22 15:45 [Humulin 70/30 U-100 Insulin] sensation metformin AdvReac Unknown dizziness, Verified 11/07/22 15:45 stomach upset Review of Systems Review of Systems: Constitutional : No Fever, No Chills , no body aches, no recent illness Head/Face: No facial swelling, No facial redness ENT/Mouth : No oral/throat swelling, No Hoarseness, No Swallowing Difficulty Eyes: No Eye Pain, No Swelling, No Redness Cardiovascular : No Chest Pain, No SOB, No palpitations Respiratory : No Cough, No Sputum, No Wheezing, No Smoke Exposure, No Dyspnea Gastrointestinal : No Nausea, No Vomiting, No Diarrhea, No abdominal Pain Genitourinary : No Dysuria, No Urinary Frequency, No Hematuria Musculoskeletal : No joint pain, No Myalgias, No Joint Swelling Skin : No Skin Lesions, positive rash Neuro : No Weakness, No Numbness, No Headache, No dizziness, No tingling Psych : No Anxiety/Panic, No Depression Heme/Lymph: No Bruising, No Lymphadenopathy Endocrine : No Polyuria, No Polydipsia Denies changes in lotions or detergents. Denies new medications or any changes in medications. Denies drainage from rash. Denies any recent sick contacts or recent travel. Yes all other systems are reviewed and are negative PMFSH Past Medical History Attestation statement: The following information was validated with the patient. Source: old records reviewed and nursing notes reviewed Medical History Benign essential hypertension Chronic kidney disease, stage III (moderate) Constipation Esophagitis GERD (gastroesophageal reflux disease) Glaucoma of both eyes Hypercalcemia Lumbar spondylosis Normal colonoscopy (~01/09/07) Overweight (BMI 25.0-29.9) Peripheral neuropathy Primary osteoarthritis of both knees Primary osteoarthritis of left foot Pure hypercholesterolemia Type 2 diabetes mellitus with diabetic chronic kidney disease Urinary incontinence Vitamin D deficiency Surgical History History of eye surgery History of tubal ligation Family History Family History Father No problems noted. Mother Diabetes Stroke Son No problems noted. Son No problems noted. Daughter No problems noted. Social History Social History Household Members: None Housing: Apartment Do you presently have visiting nurse or other home services: Yes Alcohol intake: never Patient Tobacco Use Status: Never used Tobacco e-Cigarette/Vaping Use: Never Used Second Hand Smoke Exposure: Yes Advance Directives: No Advance Directives Information Provided: Yes service: No Current occupational status: retired and disabled Cognitive needs: No Hearing needs: No Vision needs: Yes Physical Exam Vital Signs: Vital Signs: Last Vital Signs Temp 97.9 F 11/15/22 12:52 Pulse 63 11/15/22 12:52 Resp 18 11/15/22 12:52 BP 125/72 11/15/22 12:52 Pulse Ox 98 11/15/22 12:52 O2 Del Method Room Air 11/15/22 12:52 BMI result Body Mass Index 22.6 Vital signs reviewed. Blood pressure normal. Pulse normal. Respiration normal. Oxygen normal. Temperature normal. Appearance: Alert. Oriented X3. No acute distress. Head: Normal external exam. Normocephalic. Atraumatic. Eyes: PERRLA. EOMI. Conjunctiva and sclera normal. Eyelids normal. ENT: EAC normal. TM's Normal. Pharynx normal. Uvula midline. Moist mucous membranes. No lesions/ulcerations or masses noted on the tongue. Normal voice. No trismus noted. No drooling noted. No muffled voice noted. Neck: Normal inspection. Neck supple. FROM. No adenopathy. Thyroid Normal. No meningeal signs. CVS: Normal heart rate and rhythm. Heart sound normal. Pulses normal throughout. No murmurs/rales/gallops. Respiratory: No respiratory distress. Painless inspiration. Breath sounds normal. No wheezes/rales/rhonchi noted. Chest nontender. No accessory muscle usage noted or decreased air movement noted. Abdomen: Soft and nontender. Back: Full range of motion noted. Nontender. Skin: Skin warm and dry. Normal skin color. Normal skin turgor. Painful dermatomal clustered vesicles on an erythematous base to the right side of the abdomen spreading to the right side of the back does not cross the midline consistent with shingles. No lesions/lacerations noted. Extremities: Extremities exhibit normal range of motion and nontender. Neuro: Oriented X 3. No motor deficit. No sensory deficit. Reflexes normal. Normal steady gait. No focal neuro deficits noted. CN's II-XII intact bilaterally? Vascular: + radial pulses. Normal cap refill. No cyanosis noted to upper extremity nails Course Course Course Narrative: 87-year-old female presenting with daughter at bedside with the shingles like rash to the right side of her abdomen/back that does not cross the midline. No signs of infection. This started on Monday. Denies any other symptoms. Not consistent with allergic reaction, cellulitis, foreign bodies or abscess. Will DC home with Valtrex, prednisone and oxycodone for pain and instructions return if any new or worsening symptoms to follow up with primary care provider. Patient with daughter at bedside understand agree this plan. Medical Decision Making Independent Historian Clinical information obtained from an independent historian. History obtained from or confirmed by: Other (Daughter) External Record Review I reviewed all the patient's records that are accessible in our system Prescription Management I considered prescription management with: Pain Medication and Antiviral Will DC home with pain medication antivirals and steroids for shingles rash Chronic Conditions Patient?s care impacted by: Diabetes, Hypertension and Other (CVA, GERD, hypertension, diabetes, hyperlipidemia, CKD stage 3) Discharge Plan Discharge Clinical Impression: Shingles Patient Disposition: Home, Self-Care Instructions: Shingles (ED) Prescriptions: New valacyclovir [Valtrex] 1 gram tablet 1,000 mg PO TID 14 Days Qty: 42 0RF prednisone 20 mg tablet 40 mg PO DAILY 5 Days Qty: 10 0RF oxycodone 5 mg tablet 5 mg PO Q6H PRN (Reason: pain) Qty: 14 0RF Rx Instructions: Partial Fill upon patient request. No Action (DME) lancets 30 gauge misc See Rx Instructions .ROUTE .MEDSUPPLY Qty: 100 0RF Rx Instructions: As directed (DME) blood sugar diagnostic Strip See Rx Instructions .ROUTE .MEDSUPPLY Qty: 10 Hold Instructions: Doctor's Order Patient Comments: CHECKS SUGAR BID Rx Instructions: As directed dorzolamide-timolol 22.3-6.8 mg/mL drops 1 drp ophthalmic (eye) BID Qty: 30 0RF latanoprost 0.005 % drops 1 drp ophthalmic (eye) BEDTIME Qty: 2.5 0RF oxybutynin chloride 10 mg tablet extended release 24 hr 10 mg PO DAILY 30 Days Qty: 90 1RF aspirin 81 mg tablet,delayed release (DR/EC) 81 mg PO DAILY 90 Days Qty: 90 3RF OneTouch Ultra Test Strip 1 strip miscellaneous TID Qty: 100 12RF lisinopril 40 mg tablet 40 mg PO DAILY 90 Days Qty: 90 1RF insulin syringe-needle U-100 [BD Insulin Syringe Ultra-Fine] 1 mL 31 gauge x 5/16 syringe 1 ml miscellaneous BID 30 Days Qty: 60 11RF gabapentin 100 mg capsule 100 mg PO BEDTIME 30 Days Qty: 30 3RF pantoprazole 40 mg tablet,delayed release (DR/EC) 40 mg PO DAILY Qty: 90 0RF cholecalciferol (vitamin D3) 25 mcg (1,000 unit) capsule 25 mcg PO DAILY 90 Days Qty: 90 3RF Rx Instructions: 1 capsule Orally Once a day atorvastatin 80 mg tablet 80 mg PO BEDTIME Qty: 90 0RF duloxetine 30 mg capsule,delayed release(DR/EC) 30 mg PO DAILY 30 Days Qty: 30 3RF Novolin 70/30 U-100 Insulin 100 unit/mL (70-30) suspension 30 unit subcut BID 30 Days Qty: 18 0RF ondansetron 4 mg tablet,disintegrating 4 mg PO Q8H PRN (Reason: nausea and vomiting) Qty: 20 0RF docusate sodium 100 mg Capsule 100 mg PO DAILY PRN (Reason: Constipation) omega 6-qif-cbl-fish oil [Fish Oil] 1,000 mg (120 mg-180 mg) Capsule 1 cap PO BID (DME) [place] [facility] [place] Instructions .Route Qty: 1 0RF Rx Instructions: As directed (DME) insulin syringe-needle U-100 0.3 mL 31 gauge x 5/16 syringe See Rx Instructions .ROUTE BID Qty: 10 Rx Instructions: As directed (DME) blood sugar diagnostic Strip See Rx Instructions .ROUTE .MEDSUPPLY Qty: 100 1RF Rx Instructions: BID sennosides [Senna Lax] 8.6 mg tablet 17.2 mg PO BEDTIME PRN (Reason: constipation) 30 Days Qty: 60 5RF hydroxyzine HCl 25 mg tablet 25 mg PO TID PRN (Reason: anxiety) 10 Days Qty: 30 1RF Referrals: Stan,Aris S, MD [Primary Care Provider] - 2 days Print Language: Cambodian
== END 2022-11-15 12:59 | disposition home or self-care (01) ==
PROVIDERS: Emergency Provider Emergency Medicine; PCP Internal Medicine
DX: B02.9 Zoster without complications (principal); E11.22 Type 2 diabetes mellitus with diabetic chronic kidney disease; I12.9 Hypertensive chronic kidney disease with stage 1 through stage 4 chronic kidney disease, or unspecified chronic kidney disease; N18.30 Chronic kidney disease, stage 3 unspecified; Z79.82 Long term (current) use of aspirin; Z79.4 Long term (current) use of insulin; Z79.02 Long term (current) use of antithrombotics/antiplatelets
CPT/HCPCS: 99282; 99283

== ENCOUNTER 2022-12-01 11:58 | Emergency (ER) | payer OTHER, SELFPAY ==
[2022-12-01 12:11] VITALS: BP 144/66; PULSE 69; RESP 19; TEMP 36.6; O2SAT 98; BMI 23.3
--- NOTE | 2022-12-01 12:11 | ED.DIZZY ---
HPI - Dizziness General Chief Complaint: Dizziness <Karis Ramirez NP - Last Filed: 12/01/22 12:14> Stated Complaint: back pain <Karis Ramirez NP - Last Filed: 12/01/22 12:14> Time Seen by Provider: 12/01/22 12:58 <Karis Ramirez NP - Last Filed: 12/01/22 12:14> Source: patient <Garrett Bowen MD - Last Filed: 12/01/22 17:08> Mode of arrival: ambulatory <Garrett Bowen MD - Last Filed: 12/01/22 17:08> Limitations: no limitations <Garrett Bowen MD - Last Filed: 12/01/22 17:08> History of Present Illness HPI Narrative: 87-year-old female presents with 2 complaints. Patient complains of right flank pain. Patient had shingles a few weeks ago. She now has a burning severe right-sided pain that radiates anteriorly along the distribution of her previous shingles infection. Pain is constant. Worse with palpation. It radiates from the back to the front. It is not associated with nausea, vomiting, diarrhea. There are no active fevers or chills. Patient is currently taking gabapentin 100 mg twice daily. She tried Tylenol without significant relief. Additionally, patient is complaining some lightheadedness. This is also been going own over the past few weeks. Daughter reports decreased p.o. intake of food and fluids. Her symptoms are worse sometimes with getting upper ambulating. They are better with rest. Symptoms described as moderate in nature. <Garrett Bowen MD - Last Filed: 12/01/22 17:08> Related Data Home Medications: Home Medications Medication Instructions Recorded Confirmed insulin syringe-needle U-100 0.3 #10 ea 08/18/20 11/07/22 mL 31 gauge x 5/16 blood sugar diagnostic #10 ea 10/12/20 11/07/22 docusate sodium 100 mg capsule 100 mg PO DAILY PRN Constipation 11/04/21 11/07/22 omega 1-gbe-iay-fish oil 1,000 mg 1 cap PO BID 11/04/21 11/07/22 (120 mg-180 mg) capsule (Fish Oil) Previous Rx's Medication Instructions Recorded lancets 30 gauge #100 ea 10/08/20 blood sugar diagnostic #100 ea 04/23/21 dorzolamide 22.3 mg-timolol 6.8 1 drp ophthalmic (eye) BID #30 mL 04/24/21 mg/mL eye drops ondansetron 4 mg disintegrating 4 mg PO Q8H PRN nausea and 06/19/21 tablet vomiting #20 tabs walker #1 ea 11/05/21 latanoprost 0.005 % eye drops 1 drp ophthalmic (eye) BEDTIME 11/30/21 #2.5 mL sennosides 8.6 mg tablet (Senna 17.2 mg PO BEDTIME PRN 03/01/22 Lax) constipation 30 days #60 tabs oxybutynin chloride 10 mg 10 mg PO DAILY OAB 30 days #90 tabs 03/07/22 tablet,extended release 24 hr aspirin 81 mg tablet,delayed 81 mg PO DAILY 90 days #90 tabs 05/01/22 release blood sugar diagnostic (OneTouch 1 strip miscellaneous TID for 07/22/22 Ultra Test strips) diabetes mellitus #100 strips lisinopril 40 mg tablet 40 mg PO DAILY 90 days #90 tabs 07/22/22 insulin syringe-needle U-100 1 mL 1 ml miscellaneous BID 30 days #60 09/14/22 31 gauge x 5/16 (BD Insulin ea Syringe Ultra-Fine) gabapentin 100 mg capsule 100 mg PO BEDTIME 30 days #30 caps 09/20/22 pantoprazole 40 mg tablet,delayed 40 mg PO DAILY #90 tabs 10/10/22 release atorvastatin 80 mg tablet 80 mg PO BEDTIME #90 tabs 10/14/22 cholecalciferol (vitamin D3) 25 25 mcg PO DAILY 90 days #90 caps 10/14/22 mcg (1,000 unit) capsule duloxetine 30 mg capsule,delayed 30 mg PO DAILY 30 days #30 caps 10/14/22 release insulin human U-100 NPH-regulr 30 unit (0.3 mL) subcut BID 10/28/22 70-30 mix 100 unit/mL subcutaneous diabetes 30 days #18 mL susp (Novolin 70/30 U-100 Insulin) hydroxyzine HCl 25 mg tablet 25 mg PO TID PRN anxiety 10 days 11/07/22 #30 tabs oxycodone 5 mg tablet 5 mg PO Q6H PRN pain #14 tabs 11/15/22 prednisone 20 mg tablet 40 mg PO DAILY inflammation 5 days 11/15/22 #10 tabs valacyclovir 1 gram tablet 1,000 mg PO TID 14 days #42 tabs 11/15/22 (Valtrex) gabapentin 100 mg capsule 100 mg PO TID #30 caps 12/01/22 <Karis Ramirez NP - Last Filed: 12/01/22 12:14> Allergies/Adverse Reactions: Allergies Allergy/AdvReac Type Severity Reaction Status Date / Time aspirin [ASA] Allergy Unknown STOMACH Verified 12/01/22 12:13 UPSET insulin isophane (NPH) Allergy Unknown choking Verified 12/01/22 12:13 [Humulin 70/30 U-100 Insulin] sensation insulin regular Allergy Unknown choking Verified 12/01/22 12:13 [Humulin 70/30 U-100 Insulin] sensation metformin AdvReac Unknown dizziness, Verified 12/01/22 12:13 stomach upset <Karis Ramirez NP - Last Filed: 12/01/22 12:14> [facility] Past Medical History Medical History: Medical History Benign essential hypertension Chronic kidney disease, stage III (moderate) Constipation Esophagitis GERD (gastroesophageal reflux disease) Glaucoma of both eyes Hypercalcemia Lumbar spondylosis Normal colonoscopy (~01/09/07) Overweight (BMI 25.0-29.9) Peripheral neuropathy Primary osteoarthritis of both knees Primary osteoarthritis of left foot Pure hypercholesterolemia Type 2 diabetes mellitus with diabetic chronic kidney disease Urinary incontinence Vitamin D deficiency <Karis Ramirez NP - Last Filed: 12/01/22 12:14> Surgical History: Surgical History History of eye surgery History of tubal ligation <Karis Ramirez NP - Last Filed: 12/01/22 12:14> Family History Family History: Family History Father No problems noted. Mother Diabetes Stroke Son No problems noted. Son No problems noted. Daughter No problems noted. <Karis Ramirez NP - Last Filed: 12/01/22 12:14> Social History Social History: Social History Household Members: None Housing: Apartment Do you presently have visiting nurse or other home services: Yes Alcohol intake: never Patient Tobacco Use Status: Never used Tobacco e-Cigarette/Vaping Use: Never Used Second Hand Smoke Exposure: Yes Advance Directives: No service: No Current occupational status: retired and disabled Cognitive needs: No Hearing needs: No Vision needs: Yes <Karis Ramirez NP - Last Filed: 12/01/22 12:14> Physical Exam Vital Signs: Vital Signs: Last Vital Signs Temp 98.5 F 12/01/22 15:15 Pulse 54 12/01/22 15:15 Resp 18 12/01/22 15:15 BP 145/54 H 12/01/22 15:15 Pulse Ox 99 12/01/22 15:15 O2 Del Method Room Air 12/01/22 15:15 BMI result Body Mass Index 23.3 <Karis Ramirez NP - Last Filed: 12/01/22 12:14> Vital Signs: Last Vital Signs Temp 98.5 F 12/01/22 15:15 Pulse 54 12/01/22 15:15 Resp 18 12/01/22 15:15 BP 145/54 H 12/01/22 15:15 Pulse Ox 99 12/01/22 15:15 O2 Del Method Room Air 12/01/22 15:15 BMI result Body Mass Index 23.3 <Garrett Bowen MD - Last Filed: 12/01/22 17:08> GEN: Well developed, no acute distress, alert, oriented HEENT: Normocephalic, atraumatic, normal external ears, nose appears normal, no oropharyngeal edema or exudates Eyes: Normal to appearance Neck: Supple, no lymphadenopathy Respiratory: Talks in complete sentences, no respiratory distress, clear to auscultation bilaterally Cardiovascular: Regular rate and rhythm, no murmurs rubs or gallops Abdomen: Soft, nontender, nondistended, no guarding, no rebound Back: No CVA tenderness Extremities: No clubbing cyanosis or edema Neurologic: No focal neurologic deficits, cranial nerves 2-12 intact, strength is 5/5 bilaterally, gait normal Skin: No rash old shingles rash right flank to right lower abdomen <Garrett Bowen MD - Last Filed: 12/01/22 17:08> Course Course Course Narrative: This is rapid medical exam. Deferred additional HPI, ROS and PE to primary provider. 87 yo female with history of DM, HTN, CKD, anemia, HLD here with multiple complaints. Patient has felt dizzy for months, also continued back pain (had shingles 3 weeks ago-rash is gone but still having pain). Taking gabapentin 100mg BID for the pain but this makes her dizziness feel worse. Will obtain labs, EKG, UA, orthostatics. VSS <Karis Ramirez NP - Last Filed: 12/01/22 12:14> Reevaluation(s) Reevaluation #1: Who workup is complete at this time. Regarding the abdominal pain/abdominal wall pain, this likely post herpetic neuralgia. She is currently on gabapentin 100 mg twice daily, I am recommending increasing that this 3 times a day. However, I did express my concern that this could cause increasing fatigue and lightheaded patient also expressed some concerns regarding this. However, given her pain symptoms being moderate to severe in nature, I do believe patient may benefit from this. They were also counseled regarding the use of Tylenol products. Patient is to avoid NSAIDs given her age 5 chronic kidney disease. Patient is also complaining of some lightheadedness. This appears to be positional. His been associated with decreased oral intake of food and fluids. She denies any fevers or chills. Her examination is benign. There is anemia but is appears to be stable. Sounds like patient is also on Procrit. At this time, where only waiting on a urinalysis. Patient did have an EKG which showed normal sinus rhythm with PAC but otherwise no obvious dysrhythmia. <Garrett Bowen MD - Last Filed: 12/01/22 17:08> Time: 13:44 <Garrett Bowen MD - Last Filed: 12/01/22 17:08> Reevaluation #2: Troponin remains slightly elevated. There is a very slight increase. This likely represents a chronically elevated troponin state as opposed to an acute cardiac event. Previous troponins were high higher. <Garrett Bowen MD - Last Filed: 12/01/22 17:08> Time: 15:42 <Garrett Bowen MD - Last Filed: 12/01/22 17:08> Reevaluation #3: Urinalysis returned, there is no evidence urinary tract infection. Talked about all results with the patient and her daughter. Patient will increase gabapentin to 100 mg 3 times a day and follow up with the primary care provider. <Garrett Bowen MD - Last Filed: 12/01/22 17:08> Medical Decision Making Medical Decision Making [facility] Narrative: 87-year-old female presents with abdominal wall discomfort likely due to post herpetic neuralgia. She is also complaining of light headedness. She does have anemia this appears to be stable. This may be contributing to her current symptoms. She is on gabapentin which can also cause similar symptoms. Other possible differential diagnosis could include electrolyte abnormality, urinary tract infection. We are waiting for these results to determine an appropriate treatment and disposition <Garrett Bowen MD - Last Filed: 12/01/22 17:08> Differential Diagnosis Differential Diagnoses: The differential diagnosis associated with the presentation includes (Lightheadedness, dizziness, hyponatremia, hypokalemia, anemia, cardiac dysrhythmia) <Garrett Bowen MD - Last Filed: 12/01/22 17:08> Post herpetic neuralgia, lightheadedness <Garrett Bowen MD - Last Filed: 12/01/22 17:08> Admission/Observation Consideration of admission/observation: Escalation of care including admission/observation considered <Garrett Bowen MD - Last Filed: 12/01/22 17:08> Lab Data [facility] Lab Attestation statement: I reviewed the patient's lab results. <Garrett Bowen MD - Last Filed: 12/01/22 17:08> Result Diagrams: 12/01/22 12:40 12/01/22 12:40 <Karis Ramirez NP - Last Filed: 12/01/22 12:14> Labs: Lab Results 12/01/22 12/01/22 12/01/22 Range/Units 12:40 12:40 12:40 WBC 6.3 (4.8-10.8) X10*3/uL RBC 3.32 L (4.20-5.50) X10*6/uL Hgb 10.2 L (12.0-16.0) g/dl Hct 30.7 L (37.0-47.0) % MCV 92.5 (80.0-98.0) fL MCH 30.7 (27.0-33.0) pg MCHC 33.2 (31.0-35.0) g/dl RDW 13.4 (11.0-16.0) % Plt Count 120 L (160-400) X10*3/uL MPV 10.5 (9.4-12.3) fL Immature Gran % (Auto) 0.2 (0.0-0.4) % Neut % (Auto) 65.2 (45-73) % Lymph % (Auto) 23.2 (20-40) % [place] % (Auto) 5.2 (2-11) % Eos % (Auto) 5.7 H (0-4) % Baso % (Auto) 0.5 (0-2) % Lymph # (Auto) 1.5 (1.2-4.9) X10*3/uL [place] # (Auto) 0.3 (0.1-1.2) X10*3/uL Eos # (Auto) 0.4 (0.0-0.4) X10*3/uL Baso # (Auto) 0.0 (0.0-0.2) X10*3/uL Abs Immat Gran (auto) 0.01 (0.00-0.03) X10*3/uL Absolute Neuts (auto) 4.1 (2.0-8.3) x10*3/uL Absolute Nucleated RBC 0.000 (0.0-0.012) X10*3/uL Nucleated RBC % (auto) 0.0 (0.0-0.2) /100WBC Sodium 138 (135-145) mmol/L Potassium 4.3 (3.3-5.1) mmol/L Chloride 109 H (96-108) mmol/L Carbon Dioxide 22 (22-29) mmol/L Anion Gap 11 L (12-20) BUN 26 H (9-16) mg/dL Creatinine 1.43 H (0.5-1.4) mg/dL Estim Creat Clear Calc 25.8 Estimated GFR 35 Random Glucose 149 H (60-115) mg/dL Calcium 9.5 (8.4-10.2) mg/dL Magnesium 1.8 (1.6-2.6) mg/dL Total Bilirubin 0.9 (0.0-1.0) mg/dL Direct Bilirubin 0.2 (0.0-0.5) mg/dL AST 17 (5-31) U/L ALT 15 (0-31) U/L Alkaline Phosphatase 51 (39-117) U/L Troponin I High Sens 21.0 H (<3.5-17.0) ng/L Total Protein 6.4 L (6.5-8.0) g/dL Albumin 3.5 (3.5-5.0) g/dL Urine Color Urine Appearance Urine pH (5.0-9.0) Ur Specific [place] (1.005-1.025) Urine Protein (Neg-Trace) mg/dL Urine Glucose (UA) (Negative) mg/dL Urine Ketones (Negative) mg/dL Urine Blood (Negative) Urine Nitrite (Negative) Ur Leukocyte Esterase (Negative) Urine RBC (0-2) /HPF Urine WBC (0-5) /HPF Ur Squamous Epith Cells (0-2) /HPF Urine Bacteria (None Seen) Hyaline Casts (0-2) /LPF COVID-19 (ТАТЬЯНА) (Negative) COVID-19 Clin Com 12/01/22 12/01/22 12/01/22 Range/Units 12:40 13:58 15:20 WBC (4.8-10.8) X10*3/uL RBC (4.20-5.50) X10*6/uL Hgb (12.0-16.0) g/dl Hct (37.0-47.0) % MCV (80.0-98.0) fL MCH (27.0-33.0) pg MCHC (31.0-35.0) g/dl RDW (11.0-16.0) % Plt Count (160-400) X10*3/uL MPV (9.4-12.3) fL Immature Gran % (Auto) (0.0-0.4) % Neut % (Auto) (45-73) % Lymph % (Auto) (20-40) % [place] % (Auto) (2-11) % Eos % (Auto) (0-4) % Baso % (Auto) (0-2) % Lymph # (Auto) (1.2-4.9) X10*3/uL [place] # (Auto) (0.1-1.2) X10*3/uL Eos # (Auto) (0.0-0.4) X10*3/uL Baso # (Auto) (0.0-0.2) X10*3/uL Abs Immat Gran (auto) (0.00-0.03) X10*3/uL Absolute Neuts (auto) (2.0-8.3) x10*3/uL Absolute Nucleated RBC (0.0-0.012) X10*3/uL Nucleated RBC % (auto) (0.0-0.2) /100WBC Sodium (135-145) mmol/L Potassium (3.3-5.1) mmol/L Chloride (96-108) mmol/L Carbon Dioxide (22-29) mmol/L Anion Gap (12-20) BUN (9-16) mg/dL Creatinine (0.5-1.4) mg/dL Estim Creat Clear Calc Estimated GFR Random Glucose (60-115) mg/dL Calcium (8.4-10.2) mg/dL Magnesium (1.6-2.6) mg/dL Total Bilirubin (0.0-1.0) mg/dL Direct Bilirubin (0.0-0.5) mg/dL AST (5-31) U/L ALT (0-31) U/L Alkaline Phosphatase (39-117) U/L Troponin I High Sens 23.7 H (<3.5-17.0) ng/L Total Protein (6.5-8.0) g/dL Albumin (3.5-5.0) g/dL Urine Color Yellow Urine Appearance Clear Urine pH 5.5 (5.0-9.0) Ur Specific [place] 1.015 (1.005-1.025) Urine Protein 30 (1+) H (Neg-Trace) mg/dL Urine Glucose (UA) Negative (Negative) mg/dL Urine Ketones Negative (Negative) mg/dL Urine Blood Small (1+) H (Negative) Urine Nitrite Negative (Negative) Ur Leukocyte Esterase Small (1+) H (Negative) Urine RBC 0-2 (0-2) /HPF Urine WBC 0-5 (0-5) /HPF Ur Squamous Epith Cells 3-5 (0-2) /HPF Urine Bacteria Trace (None Seen) Hyaline Casts 0-2 (0-2) /LPF COVID-19 (ТАТЬЯНА) Negative (Negative) COVID-19 Clin Com See Note <Karis Benderbryan, LATIN PROFESSOR - Last Filed: 12/01/22 12:14> Lab Results 12/01/22 12/01/22 12/01/22 Range/Units 12:40 12:40 12:40 WBC 6.3 (4.8-10.8) X10*3/uL RBC 3.32 L (4.20-5.50) X10*6/uL Hgb 10.2 L (12.0-16.0) g/dl Hct 30.7 L (37.0-47.0) % MCV 92.5 (80.0-98.0) fL MCH 30.7 (27.0-33.0) pg MCHC 33.2 (31.0-35.0) g/dl RDW 13.4 (11.0-16.0) % Plt Count 120 L (160-400) X10*3/uL MPV 10.5 (9.4-12.3) fL Immature Gran % (Auto) 0.2 (0.0-0.4) % Neut % (Auto) 65.2 (45-73) % Lymph % (Auto) 23.2 (20-40) % [place] % (Auto) 5.2 (2-11) % Eos % (Auto) 5.7 H (0-4) % Baso % (Auto) 0.5 (0-2) % Lymph # (Auto) 1.5 (1.2-4.9) X10*3/uL [place] # (Auto) 0.3 (0.1-1.2) X10*3/uL Eos # (Auto) 0.4 (0.0-0.4) X10*3/uL Baso # (Auto) 0.0 (0.0-0.2) X10*3/uL Abs Immat Gran (auto) 0.01 (0.00-0.03) X10*3/uL Absolute Neuts (auto) 4.1 (2.0-8.3) x10*3/uL Absolute Nucleated RBC 0.000 (0.0-0.012) X10*3/uL Nucleated RBC % (auto) 0.0 (0.0-0.2) /100WBC Sodium 138 (135-145) mmol/L Potassium 4.3 (3.3-5.1) mmol/L Chloride 109 H (96-108) mmol/L Carbon Dioxide 22 (22-29) mmol/L Anion Gap 11 L (12-20) BUN 26 H (9-16) mg/dL Creatinine 1.43 H (0.5-1.4) mg/dL Estim Creat Clear Calc 25.8 Estimated GFR 35 Random Glucose 149 H (60-115) mg/dL Calcium 9.5 (8.4-10.2) mg/dL Magnesium 1.8 (1.6-2.6) mg/dL Total Bilirubin 0.9 (0.0-1.0) mg/dL Direct Bilirubin 0.2 (0.0-0.5) mg/dL AST 17 (5-31) U/L ALT 15 (0-31) U/L Alkaline Phosphatase 51 (39-117) U/L Troponin I High Sens 21.0 H (<3.5-17.0) ng/L Total Protein 6.4 L (6.5-8.0) g/dL Albumin 3.5 (3.5-5.0) g/dL Urine Color Urine Appearance Urine pH (5.0-9.0) Ur Specific [place] (1.005-1.025) Urine Protein (Neg-Trace) mg/dL Urine Glucose (UA) (Negative) mg/dL Urine Ketones (Negative) mg/dL Urine Blood (Negative) Urine Nitrite (Negative) Ur Leukocyte Esterase (Negative) Urine RBC (0-2) /HPF Urine WBC (0-5) /HPF Ur Squamous Epith Cells (0-2) /HPF Urine Bacteria (None Seen) Hyaline Casts (0-2) /LPF COVID-19 (ТАТЬЯНА) (Negative) COVID-19 Clin Com 12/01/22 12/01/22 12/01/22 Range/Units 12:40 13:58 15:20 WBC (4.8-10.8) X10*3/uL RBC (4.20-5.50) X10*6/uL Hgb (12.0-16.0) g/dl Hct (37.0-47.0) % MCV (80.0-98.0) fL MCH (27.0-33.0) pg MCHC (31.0-35.0) g/dl RDW (11.0-16.0) % Plt Count (160-400) X10*3/uL MPV (9.4-12.3) fL Immature Gran % (Auto) (0.0-0.4) % Neut % (Auto) (45-73) % Lymph % (Auto) (20-40) % [place] % (Auto) (2-11) % Eos % (Auto) (0-4) % Baso % (Auto) (0-2) % Lymph # (Auto) (1.2-4.9) X10*3/uL [place] # (Auto) (0.1-1.2) X10*3/uL Eos # (Auto) (0.0-0.4) X10*3/uL Baso # (Auto) (0.0-0.2) X10*3/uL Abs Immat Gran (auto) (0.00-0.03) X10*3/uL Absolute Neuts (auto) (2.0-8.3) x10*3/uL Absolute Nucleated RBC (0.0-0.012) X10*3/uL Nucleated RBC % (auto) (0.0-0.2) /100WBC Sodium (135-145) mmol/L Potassium (3.3-5.1) mmol/L Chloride (96-108) mmol/L Carbon Dioxide (22-29) mmol/L Anion Gap (12-20) BUN (9-16) mg/dL Creatinine (0.5-1.4) mg/dL Estim Creat Clear Calc Estimated GFR Random Glucose (60-115) mg/dL Calcium (8.4-10.2) mg/dL Magnesium (1.6-2.6) mg/dL Total Bilirubin (0.0-1.0) mg/dL Direct Bilirubin (0.0-0.5) mg/dL AST (5-31) U/L ALT (0-31) U/L Alkaline Phosphatase (39-117) U/L Troponin I High Sens 23.7 H (<3.5-17.0) ng/L Total Protein (6.5-8.0) g/dL Albumin (3.5-5.0) g/dL Urine Color Yellow Urine Appearance Clear Urine pH 5.5 (5.0-9.0) Ur Specific [place] 1.015 (1.005-1.025) Urine Protein 30 (1+) H (Neg-Trace) mg/dL Urine Glucose (UA) Negative (Negative) mg/dL Urine Ketones Negative (Negative) mg/dL Urine Blood Small (1+) H (Negative) Urine Nitrite Negative (Negative) Ur Leukocyte Esterase Small (1+) H (Negative) Urine RBC 0-2 (0-2) /HPF Urine WBC 0-5 (0-5) /HPF Ur Squamous Epith Cells 3-5 (0-2) /HPF Urine Bacteria Trace (None Seen) Hyaline Casts 0-2 (0-2) /LPF COVID-19 (ТАТЬЯНА) Negative (Negative) COVID-19 Clin Com See Note <Garrett Bowen MD - Last Filed: 12/01/22 17:08> Independent Interpretation I performed an independent interpretation of an: EKG (Normal sinus rhythm heart rate 65, premature atrial contraction, possible old septal wall NC, otherwise normal intervals, nonspecific T-wave changes, no acute ST elevations or depressions) <Garrett Bowen MD - Last Filed: 12/01/22 17:08> Independent Historian Clinical information obtained from an independent historian. History obtained from or confirmed by: Other (Daughter) <Garrett Bowen MD - Last Filed: 12/01/22 17:08> Prescription Management I considered prescription management with: Pain Medication <Garrett Bowen MD - Last Filed: 12/01/22 17:08> Discharge Plan Discharge Clinical Impression: CKD (chronic kidney disease), Elevated troponin, Anemia, Dizziness, Post herpetic neuralgia <Karis Ramirez NP - Last Filed: 12/01/22 12:14> Patient Disposition: Home, Self-Care <Karis Ramirez NP - Last Filed: 12/01/22 12:14> Instructions: Chronic Kidney Disease (ED), Shingles (ED), Lightheadedness (ED), Anemia (ED), High Troponin Levels (ED) <Karis Ramirez NP - Last Filed: 12/01/22 12:14> Prescriptions: New gabapentin 100 mg capsule 100 mg PO TID Qty: 30 0RF No Action (DME) lancets 30 gauge misc See Rx Instructions .ROUTE .MEDSUPPLY Qty: 100 0RF Rx Instructions: As directed (DME) blood sugar diagnostic Strip See Rx Instructions .ROUTE .MEDSUPPLY Qty: 10 Hold Instructions: Doctor's Order Patient Comments: CHECKS SUGAR BID Rx Instructions: As directed dorzolamide-timolol 22.3-6.8 mg/mL drops 1 drp ophthalmic (eye) BID Qty: 30 0RF latanoprost 0.005 % drops 1 drp ophthalmic (eye) BEDTIME Qty: 2.5 0RF oxybutynin chloride 10 mg tablet extended release 24 hr 10 mg PO DAILY 30 Days Qty: 90 1RF aspirin 81 mg tablet,delayed release (DR/EC) 81 mg PO DAILY 90 Days Qty: 90 3RF Your Truman Showuch Ultra Test Strip 1 strip miscellaneous TID Qty: 100 12RF lisinopril 40 mg tablet 40 mg PO DAILY 90 Days Qty: 90 1RF insulin syringe-needle U-100 [BD Insulin Syringe Ultra-Fine] 1 mL 31 gauge x 5/16 syringe 1 ml miscellaneous BID 30 Days Qty: 60 11RF gabapentin 100 mg capsule 100 mg PO BEDTIME 30 Days Qty: 30 3RF pantoprazole 40 mg tablet,delayed release (DR/EC) 40 mg PO DAILY Qty: 90 0RF cholecalciferol (vitamin D3) 25 mcg (1,000 unit) capsule 25 mcg PO DAILY 90 Days Qty: 90 3RF Rx Instructions: 1 capsule Orally Once a day atorvastatin 80 mg tablet 80 mg PO BEDTIME Qty: 90 0RF duloxetine 30 mg capsule,delayed release(DR/EC) 30 mg PO DAILY 30 Days Qty: 30 3RF Novolin 70/30 U-100 Insulin 100 unit/mL (70-30) suspension 30 unit subcut BID 30 Days Qty: 18 0RF ondansetron 4 mg tablet,disintegrating 4 mg PO Q8H PRN (Reason: nausea and vomiting) Qty: 20 0RF docusate sodium 100 mg Capsule 100 mg PO DAILY PRN (Reason: Constipation) omega 8-zhs-[id number]-fish oil [Fish Oil] 1,000 mg (120 mg-180 mg) Capsule 1 cap PO BID (DME) walker Misc See Rx Instructions .Route Qty: 1 0RF Rx Instructions: As directed valacyclovir [Valtrex] 1 gram tablet 1,000 mg PO TID 14 Days Qty: 42 0RF prednisone 20 mg tablet 40 mg PO DAILY 5 Days Qty: 10 0RF oxycodone 5 mg tablet 5 mg PO Q6H PRN (Reason: pain) Qty: 14 0RF Rx Instructions: Partial Fill upon patient request. (DME) insulin syringe-needle U-100 0.3 mL 31 gauge x 5/16 syringe See Rx Instructions .ROUTE BID Qty: 10 Rx Instructions: As directed (DME) blood sugar diagnostic Strip See Rx Instructions .ROUTE .MEDSUPPLY Qty: 100 1RF Rx Instructions: BID sennosides [Senna Lax] 8.6 mg tablet 17.2 mg PO BEDTIME PRN (Reason: constipation) 30 Days Qty: 60 5RF hydroxyzine HCl 25 mg tablet 25 mg PO TID PRN (Reason: anxiety) 10 Days Qty: 30 1RF <Karis Ramirez NP - Last Filed: 12/01/22 12:14> Referrals: Aris Pierce MD [Primary Care Provider] - 1 week <Karis Ramirez NP - Last Filed: 12/01/22 12:14> Print Language: Telugu <Karis Ramirez NP - Last Filed: 12/01/22 12:14>
--- NOTE | 2022-12-01 12:13 | ECG_ITS ---
Test Reason : dizziness Blood Pressure : / mmHG Vent. Rate : 065 BPM Atrial Rate : 065 BPM P-R Int : 160 ms QRS Dur : 078 ms QT Int : 362 ms P-R-T Axes : 021 008 043 degrees QTc Int : 376 ms Sinus rhythm with Premature atrial complexes Septal infarct , age undetermined Abnormal ECG When compared with ECG of 04-NOV-2021 17:13, Premature atrial complexes are now Present Referred By: Karis Ramirez Electronically Signed By:ROLA SINGH MD
[2022-12-01 12:53] LABS: MANUAL DIFF FLAG NO
[2022-12-01 12:55] LABS: Basophils Percent Auto 0.5 % (0-2); Eosinophils Absolute Auto 0.4 X10*3/uL (0.0-0.4); Eosinophils Percent Auto 5.7 % (0-4); Hematocrit 30.7 % (37.0-47.0); Hemoglobin 10.2 g/dl (12.0-16.0); Imm Gran Abs Auto 0.01 X10*3/uL (0.00-0.03); Imm Gran Pct Auto 0.2 % (0.0-0.4); Lymphocytes Absolute Auto 1.5 X10*3/uL (1.2-4.9); Lymphocytes Percent Auto 23.2 % (20-40); Mean Corpuscular HGB Conc 33.2 g/dl (31.0-35.0); Mean Corpuscular Hemoglobin 30.7 pg (27.0-33.0); Mean Corpuscular Volume 92.5 fL (80.0-98.0); Mean Platelet Volume 10.5 fL (9.4-12.3); Monocytes Absolute Auto 0.3 X10*3/uL (0.1-1.2); Monocytes Percent Auto 5.2 % (2-11); Neutrophils Absolute Auto 4.1 x10*3/uL (2.0-8.3); Neutrophils Percent Auto 65.2 % (45-73); Platelet Count 120 X10*3/uL (160-400); Red Blood Count 3.32 X10*6/uL (4.20-5.50); Red Cell Distribution Width 13.4 % (11.0-16.0); White Blood Count 6.3 X10*3/uL (4.8-10.8)
[2022-12-01 13:01] VITALS: BP 130/61; PULSE 53
[2022-12-01 13:02] VITALS: BP 128/56; PULSE 61
[2022-12-01 13:04] VITALS: BP 122/61; PULSE 77
[2022-12-01 13:11] LABS: Alanine Aminotransferase 15 U/L (0-31); Albumin Level 3.5 g/dL (3.5-5.0); Alkaline Phosphatase 51 U/L (39-117); Anion Gap 11 (12-20); Aspartate Amino Transferase 17 U/L (5-31); Bilirubin Direct 0.2 mg/dL (0.0-0.5); Bilirubin Total 0.9 mg/dL (0.0-1.0); Blood Urea Nitrogen 26 mg/dL (9-16); COVID-19 Test Negative (Negative); Calcium 9.5 mg/dL (8.4-10.2); Carbon Dioxide 22 mmol/L (22-29); Chloride 109 mmol/L (96-108); Creatinine Clr Calc Pharmacy 25.8; Estimated Glomerular Filt Rate 35; Glucose Random 149 mg/dL (60-115); IDNOW Serial# BCCEAD1C; Magnesium 1.8 mg/dL (1.6-2.6); Potassium 4.3 mmol/L (3.3-5.1); Sodium 138 mmol/L (135-145); Total Protein 6.4 g/dL (6.5-8.0)
[2022-12-01 13:37] VITALS: BP 136/62; PULSE 57; RESP 17; TEMP 36.9; O2SAT 96
[2022-12-01 14:31] LABS: Troponin-I High Sensitivity 23.7 ng/L (<3.5-17.0)
[2022-12-01 15:15] VITALS: BP 145/54; PULSE 54; RESP 18; TEMP 36.9; O2SAT 99
[2022-12-01 15:35] LABS: Appearance Urine Clear; Color Urine Yellow; Glucose Urine UA Negative (Negative); Leukocyte Esterase Urine Small (1+) (Negative); Nitrite Urine Negative (Negative); PH 5.5 (5.0-9.0); Specific Gravity - Urine 1.015 (1.005-1.025); UMIC TRIGGER UACC YES; Urine Blood Small (1+) (Negative); Urine Ketones Negative (Negative); Urine Protein 30 (1+) mg/dL (Neg-Trace)
[2022-12-01 16:15] LABS: Bacteria Urine Trace (None Seen); Hyaline Casts Urine 0-2 /LPF (0-2); RBC Urine 0-2 /HPF (0-2); UACC Culture Trigger YES; WBC Urine 0-5 /HPF (0-5)
== END 2022-12-01 17:19 | disposition home or self-care (01) ==
PROVIDERS: Nurse Practitioner Family; Emergency Provider Emergency Medicine; PCP Internal Medicine
DX: R42 Dizziness and giddiness (principal); N18.9 Chronic kidney disease, unspecified; M54.50 Low back pain, unspecified; E11.9 Type 2 diabetes mellitus without complications; D64.9 Anemia, unspecified; Z20.822 Contact with and (suspected) exposure to COVID-19; Z20.828 Contact with and (suspected) exposure to other viral communicable diseases; Z79.899 Other long term (current) drug therapy; Z79.4 Long term (current) use of insulin
CPT/HCPCS: 36415; 80048; 80076; 81001; 83735; 84484; 85025; 87086; 87635; 93005; 99283; 99285

== ENCOUNTER 2023-06-15 09:24 | Outpatient (REF) | payer OTHER, SELFPAY ==
[2023-06-15 09:39] LABS: MANUAL DIFF FLAG NO
[2023-06-15 10:00] LABS: Basophils Percent Auto 0.3 % (0-2); Eosinophils Absolute Auto 0.6 X10*3/uL (0.0-0.4); Hematocrit 29.5 % (37.0-47.0); Hemoglobin 10.1 g/dl (12.0-16.0); Imm Gran Abs Auto 0.02 X10*3/uL (0.00-0.03); Imm Gran Pct Auto 0.3 % (0.0-0.4); Lymphocytes Absolute Auto 2.3 X10*3/uL (1.2-4.9); Lymphocytes Percent Auto 30.7 % (20-40); Mean Corpuscular HGB Conc 34.2 g/dl (31.0-35.0); Mean Corpuscular Hemoglobin 31.5 pg (27.0-33.0); Mean Corpuscular Volume 91.9 fL (80.0-98.0); Mean Platelet Volume 10.6 fL (9.4-12.3); Monocytes Absolute Auto 0.6 X10*3/uL (0.1-1.2); Monocytes Percent Auto 7.9 % (2-11); Neutrophils Percent Auto 52.8 % (45-73); Platelet Count 168 X10*3/uL (160-400); Red Blood Count 3.21 X10*6/uL (4.20-5.50); Red Cell Distribution Width 12.5 % (11.0-16.0); White Blood Count 7.5 X10*3/uL (4.8-10.8)
[2023-06-15 10:07] LABS: Appearance Urine Clear; Color Urine Yellow; Glucose Urine UA Negative (Negative); Leukocyte Esterase Urine Small (1+) (Negative); Nitrite Urine Negative (Negative); UMIC TRIGGER UACC YES; Urine Blood Trace (Negative); Urine Ketones Negative (Negative); Urine Protein 30 (1+) mg/dL (Neg-Trace)
[2023-06-15 10:11] LABS: Estimated Average Glucose 111 mg/dL; Hemoglobin A1C 82.9818 umol/L; Hemoglobin A1c % 5.5 % (<6.0)
[2023-06-15 10:12] LABS: Bacteria Urine None Seen (None Seen); Hyaline Casts Urine 0-2 /LPF (0-2); UACC Culture Trigger YES; WBC Urine 21-50 /HPF (0-5)
[2023-06-15 10:43] LABS: Creatinine Urine 108.04 mg/dL; Microalbum/Creatinine Ratio Ur 212.8 ug/mg cr (<30)
[2023-06-15 10:43] LABS: Alanine Aminotransferase 14 U/L (0-31); Albumin Level 3.9 g/dL (3.5-5.0); Alkaline Phosphatase 54 U/L (39-117); Anion Gap 12 (12-20); Aspartate Amino Transferase 20 U/L (5-31); Bilirubin Total 0.8 mg/dL (0.0-1.0); Blood Urea Nitrogen 33 mg/dL (9-16); Calcium 10.3 mg/dL (8.4-10.2); Carbon Dioxide 25 mmol/L (22-29); Chloride 108 mmol/L (96-108); Cholesterol 131 mg/dL (<200); Estimated Glomerular Filt Rate 39; Glucose Fasting 93 mg/dL (60-99); HDL Cholesterol 42 mg/dL (>40); LDL Cholesterol Calculated 60 mg/dL (<100); Potassium 4.3 mmol/L (3.3-5.1); Sodium 141 mmol/L (135-145); Total Protein 7.3 g/dL (6.5-8.0); Triglycerides 145 mg/dL (<150)
[2023-06-15 11:02] LABS: TSH reflex Free T4 1.45 uIU/mL (0.32-4.0); Vitamin D 25-OH Total 46.6 ng/mL (>30)
[2023-06-15 11:08] LABS: Folate 13.5 ng/mL (> or = 4.0); Vitamin B12 973 pg/mL (200-900)
== END 2023-06-15 09:25 | disposition home or self-care (01) ==
LOC: HO.LAB 09:24
PROVIDERS: PCP Internal Medicine; Visit Provider Internal Medicine
DX: E78.00 Pure hypercholesterolemia, unspecified (principal); E11.9 Type 2 diabetes mellitus without complications; I10 Essential (primary) hypertension; E55.9 Vitamin D deficiency, unspecified; E53.8 Deficiency of other specified B group vitamins; R30.0 Dysuria
CPT/HCPCS: 36415; 80053; 80061; 81001; 82043; 82306; 82570; 82607; 82746; 83036; 84443; 85025; 87086

== ENCOUNTER 2023-07-04 12:39 | Outpatient (AMB) | payer OTHER, SELFPAY ==
--- NOTE | 2023-07-04 12:43 | A.OFFPC_ITS ---
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: No Accompanied by: Self / Same As Patient Allergies aspirin [ASA] Allergy (Unknown, Verified 07/04/23 13:06) STOMACH UPSET insulin isophane (NPH) [Humulin 70/30 U-100 Insulin] Allergy (Unknown, Verified 07/04/23 13:06) choking sensation insulin regular [Humulin 70/30 U-100 Insulin] Allergy (Unknown, Verified 07/04/23 13:06) choking sensation metformin Adverse Reaction (Unknown, Verified 07/04/23 13:06) dizziness, stomach upset Medication List - Last Reconciled 07/04/23 by Aris Pierce MD aspirin 81 mg PO DAILY 90 days atorvastatin 80 mg PO BEDTIME blood sugar diagnostic As directed blood sugar diagnostic BID blood sugar diagnostic (The 5th QuarterTouch Ultra Test strips) 1 strip miscellaneous TID cholecalciferol (vitamin D3) 25 mcg PO DAILY 90 days docusate sodium 100 mg PO DAILY PRN dorzolamide-timolol 22.3-6.8 mg/mL 1 drp ophthalmic (eye) BID duloxetine 30 mg PO DAILY 30 days gabapentin 100 mg PO TID gabapentin 100 mg PO BEDTIME 30 days hydroxyzine HCl 25 mg PO TID PRN 10 days insulin NPH and regular human 100 unit/mL (70-30) (Novolin 70/30 U-100 Insulin) 30 units (0.3 mL) subcut BID 30 days insulin syringe-needle U-100 As directed insulin syringe-needle U-100 (BD Insulin Syringe Ultra-Fine) 1 mL miscellaneous BID 30 days lancets As directed latanoprost 0.005% 1 drp ophthalmic (eye) BEDTIME lisinopril 40 mg PO DAILY 90 days nitrofurantoin monohyd/m-cryst 100 mg (Macrobid) 100 mg PO Q12H 7 days omega 6-fvs-txv-fish oil 1,000 mg (120 mg-180 mg) (Fish Oil) 1 cap PO BID ondansetron 4 mg PO Q8H PRN oxybutynin chloride ER 10 mg PO DAILY 30 days oxycodone 5 mg PO Q6H PRN pantoprazole 40 mg PO DAILY prednisone 40 mg (2 x 20 mg) PO DAILY 5 days sennosides (Senna Lax) 17.2 mg (2 x 8.6 mg) PO BEDTIME PRN 30 days valacyclovir (Valtrex) 1,000 mg PO TID 14 days walker As directed Tobacco use date assessed: 07/04/23 Fall risk assessment: No Falls in past year Last assessed Fall Risk: 07/04/23 Dental Screening Dental Screen Date: 07/04/23 Did you have a dental visit in the last 12 months?: No Did you have a dental problem in the last 6 months where you did not have access to dental care?: No Was dental information given to patient?: No HPI Annual Physical HPI Details Patient comes in today for her annual physical examination States that she feels okay She denies any headaches but reports (+) on and off dizziness Denies any chest pains, no increased SOB No nausea/vomiting, no abdominal pain No change in bowel habits noted States that she is still experiencing some pain over her right lower back and some dysuria - daughter states that patient just took 1 dose of the Macrobid Rx that we sent in for her a few days ago and she felt dizzy after taking the medication and stopped taking it immediately - daughter states that patient seems to be intolerant of most medications nowadays as she tends to complain of dizziness with most everything that she takes Had her follow up labs done a few weeks ago - to discuss her results At her age, she no longer needs to continue with her colon cancer, breast cancer and cervical cancer screenings unless she wishes to continue doing so She was also following up with Dr. 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 Mother Diabetes Stroke Son No problems noted. Son No problems noted. Daughter No problems noted. Social History Household Members: None Housing: Apartment Do you presently have visiting nurse or other home services: Yes Alcohol intake: never Patient Tobacco Use Status: Never used Tobacco e-Cigarette/Vaping Use: Never Used Second Hand Smoke Exposure: Yes service: No Current occupational status: retired and disabled Cognitive needs: No Hearing needs: No Vision needs: Yes Questionnaire PHQ-9 Over the last 2 weeks, how often have you been bothered by any of the following problems? 1. Little interest or pleasure in doing things: not at all 2. Feeling down, depressed, or hopeless: not at all 3. Trouble falling or staying asleep, or sleeping too much: not at all 4. Feeling tired or having little energy: not at all 5. Poor appetite or overeating: not at all 6. Feeling bad about yourself - or that you are a failure or have let yourself or your family down: not at all 7. Trouble concentrating on things, such as reading the newspaper or watching television: not at all 8. Moving or speaking so slowly that other people could have noticed. Or the opposite - being so fidgety or restless that you have been moving around a lot more than usual: not at all 9. Thoughts that you would be better off or of hurting yourself in some way: not at all Total score: 0 Depression Screening Interpretation: Negative Depression Screening Done: Yes 21546 - PHQ-9 Billing: Yes Source: Developed by Drs. Jonathan Miles, Maureen Woodruff, David Brennan and colleagues, with an educational jose from [employer]. Thrive Questionnaire Date Thrive assessed: 07/04/23 I am a: Patient What is your living situation today?: I have a steady place to live Within the past 12 months, did the food you bought not last and you didn't have the money to get more?: Never true Within the past 12 months, did you worry whether your food would run out before you got money to buy more?: Never true Do you have trouble paying for medicines?: No Do you have trouble getting transportation to medical appointments?: No Do you have trouble paying your heating and electricity bill?: No Do you have trouble taking care of your child, family member or friend?: No Do you have trouble with day-to-day activities such as bathing, preparing meals, shopping, managing finances, etc.?: No Are you currently unemployed and looking for a job?: No Are you interested in more education?: No Please select the resources that you would like help with: None Currently or been in a relationship where the following occur: no concerns reported AUDIT C Alcohol Use Questionnaire (AUDIT-C) 1. How often do you have a drink containing alcohol?: Never 3. How often do you have six or more drinks on one occasion?: Never Total Score: 0 Score Reviewed/Action Taken: Yes CATHIE-7 AMB Questionnaire CATHIE-7 Date CATHIE - 7 assessed: 07/04/23 Feeling nervous, anxious, or on edge: 0 = Not at all Not being able to stop or control worryin = Not at all Worrying too much about different things: 0 = Not at all Trouble relaxin = Not at all Being so restless that it is hard to sit still: 0 = Not at all Becoming easily annoyed or irritable: 0 = Not at all Feeling afraid as if something awful might happen: 0 = Not at all Total CATHIE-7 score (0-4 normal; 5-9 mild; 10-14 moderate; 15-21 severe): 0 Source: Developed by Drs. Jonathan Miles, Maureen Woodruff, David Brennan and colleagues, with an educational jose from [employer]. Review of Systems Const Denies chills, Reports fatigue, Denies fever(s) and Denies headache(s) Eyes Denies blurry vision, Denies change in vision, Denies irritation and Denies itchy eyes ENT Denies dysphagia, Reports dizziness (on and off), Denies headache(s), Denies odynophagia and Denies sore throat Card Denies chest pain, Denies palpitations and Denies dyspnea Resp Denies cough, Denies dyspnea and Denies wheezing GI Denies abdominal pain, Reports constipation (on and off), Denies dysphagia, Denies heartburn, Denies diarrhea, Denies nausea, Denies odynophagia and Denies vomiting Denies nocturia and Reports dysuria (mild) Musc Reports back pain (over the lumbar spine - chronic ), Reports arthralgias (over both knees) and Reports tingling (both lower extremities) Skin/Breast Denies rash Neuro Reports dizziness (on and off), Denies headache(s), Reports tingling (both lower extremities) and Reports paresthesias (both feet, on and off) Psych Denies anxiety and Denies depression Endo Reports fatigue and Denies palpitations Ian/Lymph Denies easy bruising Aller/Immun Denies itchy eyes and Denies wheezing Physical exam (Primary Care) Vital Signs: Last Vital Signs Pulse 55 07/04/23 12:44 BP 120/72 07/04/23 12:44 Pulse Ox 98 07/04/23 12:44 Oxygen Delivery Method Room Air 07/04/23 12:44 BMI result Body Mass Index 23.1 Tobacco/Smoking Status: Tobacco use Status Tobacco use date assessed 07/04/23 07/04/23 12:54 Patient Tobacco Use Status Never used Tobacco 07/04/23 12:54 e-Cigarette/Vaping Use Never Used 07/04/23 12:54 PHQ-9: PHQ-9 Score PHQ-9: Total score 0 07/04/23 13:15 Depression Screening Interpretation: Negative Thrive Assessment: Date of Thrive Assessment Date Thrive assessed 07/04/23 07/04/23 12:54 Currently or been in a relationship where the following occur: no concerns reported Const General: no acute distress and alert Orientation/consciousness: patient oriented x3 HENMT Head: Yes normocephalic and Yes atraumatic Ears: TM's normal bilaterally and EAC's normal General nose exam: No nasal discharge present Face and sinus: Yes normal facial exam and Yes sinuses nontender Teeth and gingiva: dentition normal Throat: Yes posterior oropharynx normal and Yes tonsils normal (no TP congestion) Eyes Eyelids: Yes eyelids normal Conjunctivae: conjunctivae normal Pupils: Equal, round and reactive pupils present EOM: EOMs intact bilaterally Neck Neck: Yes no lymphadenopathy and Yes supple Thyroid: Thyroid normal Resp Auscultation: clear to auscultation bilaterally, no rales and no wheezes Cardio Rate: regular rate Rhythm: regular rhythm Heart sounds: no murmurs GI Palpation (GI): Soft to palpation, nontender and No hepatosplenomegaly present Auscultation: normal bowel sounds General: Yes no CVA tenderness Back/Spine/Pelvis Back: no CVA tenderness Thoracic/Lumbar Spine: lumbar spinal tenderness Sacroiliac joints: bilaterally tender to palpation Skin Lesions: no lesions Rashes: no rashes Neuro General: patient oriented x3, moves all extremities, no focal motor deficits and CN's II-XI intact bilaterally Cranial nerves: Yes Equal, round and reactive pupils present Cognition (Neuro): normal cognition Gait exam (Neuro): Normal gait present Extrem General: Yes no clubbing, cyanosis or edema Office Procedures Flu Questionnaire Does the patient have a severe egg allergy?: No Does the patient have severe life threatening allergies?: No Does the patient have a fever or illness today?: No Has the patient ever had Guillain-[place] Syndrome?: No Has the patient ever had any past reaction to a flu shot?: No Immunizations flu vacc [id number] 6mos up(PF) 60 mcg(15 mcgx4)/0.5 mL IM syringe Performing Provider: Aris Pierce MD Performing Location: [facility] Administered by: Coni Flor on 07/04/23 13:32 Dose Route Admin Location Dispensed Lot Number Expiration Date NDC Internal Communications Writer 0.5 mL IM Left Deltoid 0.5 mL [id number] 02/18/24 06158-830-30 [employer] VIS Given Date VIS Provided VIS Publication Date 07/04/23 Single Vaccine 21 Eligibility Eligibility Date Funding Source Not [facility] Eligible 07/04/23 Private Results Reviewed Results Reviewed: Laboratory Tests 12/30/22 06/15/23 06/15/23 13:52 09:38 09:40 WBC 7.5 7.5 Hgb 10.6 L 10.1 L Hct 32.2 L 29.5 L Plt Count 159 L 168 Sodium 141 Potassium 4.3 Creatinine 1.31 Estimated GFR 39 Fasting Glucose 93 Hemoglobin A1c % 5.5 Calcium 10.3 H D AST 20 ALT 14 Triglycerides 145 Cholesterol 131 LDL Cholesterol, Calc 60 HDL Cholesterol 42 Vitamin B12 973 H 25-OH Vitamin D Total 46.6 TSH 1.45 Urine pH 6.0 Ur Specific [place] 1.020 Urine Protein 30 (1+) H Urine Glucose (UA) Negative Urine Blood Trace H Assessment and Plan Assessment & Plan (1) Annual physical exam: Code(s): Z00.00 - Encounter for general adult medical examination without abnormal findings Plan: Results of her labs done a few weeks ago reviewed and discussed with patient She no longer needs to keep up with her cancer screenings due to her age (2) Pure hypercholesterolemia: Code(s): E78.00 - Pure hypercholesterolemia, unspecified Plan: Reinforced low cholesterol diet Continue Atorvastatin 80 mg QD and?Fish Oil ([place] 3) capsules 1000 mg BID Will recheck her labs and fasting lipids again in 4 months for follow-up (3) Type 2 diabetes mellitus with diabetic chronic kidney disease: Code(s): E11.22 - Type 2 diabetes mellitus with diabetic chronic kidney disease Qualifiers: Diabetes mellitus watermaster insulin use: with senior care use Chronic kidney disease stage: stage 3 (moderate) Chronic kidney disease stage 3 subtype: stage 3b (GFR 30-44) Qualified Code(s): E11.22 - Type 2 diabetes mellitus with diabetic chronic kidney disease; N18.32 - Chronic kidney disease, stage 3b; Z79.4 - watermaster (current) use of insulin Plan: HgbA1c was at 5.5% on her labs done a few weeks ago (was previously at 6.0%) - goal is at least between 7.0% to 7.5% or lower Reinforced diabetic diet Continue Novolin 70/30 at 30 units BID (4) Benign essential hypertension: Code(s): I10 - Essential (primary) hypertension Plan: Reinforced low-sodium diet -? goal is systolic BP of at least 140-150 mm or less Continue Lisinopril 40 mg QD (5) Chronic kidney disease, stage III (moderate): Code(s): N18.30 - Chronic kidney disease, stage 3 unspecified Qualifiers: Chronic kidney disease stage 3 subtype: stage 3b (GFR 30-44) Qualified Code(s): N18.32 - Chronic kidney disease, stage 3b Plan: Stable - will continue to monitor GFR and serum creatinine regularly (6) Esophagitis: Code(s): K20.90 - Esophagitis, unspecified without bleeding Plan: Dietary restrictions reinforced Continue Pantoprazole 40 mg QD and Sucralfate 1 gm QID (7) Anemia: Code(s): D64.9 - Anemia, unspecified Qualifiers: Anemia type: unspecified type Qualified Code(s): D64.9 - Anemia, unspecified Plan: Patient is still anemic on her recent labs; iron function studies were normal - is most likely anemia of chronic disease (CKD) She has responded to ROSA MARIA injections when needed in the past Follow up with hematology as scheduled - patient's daughter is advised that as patient has not seen Dr. Zheng in a while, they should contact her office to schedule a follow up appt for her AIDEE (8) Vitamin D deficiency: Code(s): E55.9 - Vitamin D deficiency, unspecified Plan: Continue Vitamin D3 1000 units QD (9) Constipation: Code(s): K59.00 - Constipation, unspecified Qualifiers: Constipation type: unspecified constipation type Qualified Code(s): K59.00 - Constipation, unspecified Plan: Encouraged increased oral fluids and dietary fiber Continue Senna 8.6 mg 2 tablets Q HS PRN (was on Docusate in the past but states that it did not help much; does not like taste of Miralax) (10) Hypercalcemia: Code(s): E83.52 - Hypercalcemia Plan: Corrected and serum calcium level is again slightly elevated at 10.3 on her most recent labs Will continue to monitor her serum calcium level regularly (11) Myalgia: Code(s): M79.10 - Myalgia, unspecified site Plan: Continue Duloxetine 30 mg QD ESR done a few months ago came back normal (12) Lumbar spondylosis: Code(s): M47.816 - Spondylosis without myelopathy or radiculopathy, lumbar region Plan: Reinforced activity and weight lifting restrictions to minimize aggravating her back pain X-rays of the lumbar spine done in 2018 showed (+)? mild degenerative changes Advised again that if her low back pain persists or gets worse, will consider referring her back to physical therapy for further evaluation and management and/or repeat lumbar spine x-rays (13) Primary osteoarthritis of both knees: Code(s): M17.0 - Bilateral primary osteoarthritis of knee Plan: X-rays of both knees done a few months ago showed (+) mild OA changes in both knees Encouraged to continue regular knee exercises to help manage her knee symptoms and at her age, conservative treatment and management of her symptoms would be the best option (14) Primary osteoarthritis of left foot: Code(s): M19.072 - Primary osteoarthritis, left ankle and foot Plan: X-rays of the left foot and ankle done last year revealed also (+) mild OA changes -? 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 just for symptomatic relief but can be associated with potential side effects Advised to continue taking her Magnesium Oxide tablets 1 to 2 times a day as this may provide some relief of her neuropathic symptoms (16) Dysuria: Code(s): R30.0 - Dysuria Plan: Patient reportedly could not tolerate empiric Tx with Macrobid last week - took 1 dose and immediately felt dizzy Have advised her daughter to have patient try drinking some reduced sugar cranberry juice for a few days to see if her urinary symptoms will clear up with this alone and to call if her symptoms persist or get worse (17) Anxiety: Code(s): F41.9 - Anxiety disorder, unspecified Plan: Continue Hydroxyzine 25 mg TID PRN (18) Glaucoma of both eyes: Code(s): H40.9 - Unspecified glaucoma Qualifiers: Glaucoma type: unspecified Qualified Code(s): H40.9 - Unspecified glaucoma Plan: Continue Latanoprost solution 0.005% 1 drop into affected eye in the evening once a day and Dorzolamide HCL-Timolol Maleate solution 22.3-6.8 mg/mL 1 drop into affected eye twice a day Follow-up with Ophthalmology as scheduled Plan Flu vaccine given today, per request Follow up in 4 months Orders: Orders TSH reflex Free T4 4 Months E78.00 - Pure hypercholesterolemia, unspecified Microalbumin, Random (w Creat) 4 Months E11.9 - Type 2 diabetes mellitus without complications UA CC w/rflx Micro + Cult 4 Months R30.0 - Dysuria Hemoglobin A1c 4 Months E11.9 - Type 2 diabetes mellitus without complications Vitamin D 25-OH Total 4 Months E55.9 - Vitamin D deficiency, unspecified Influenza [id number] Immunization Today Z23 - Encounter for immunization Complete Blood Count Auto Diff 4 Months I10 - Essential (primary) hypertension Lipid Panel 4 Months E78.00 - Pure hypercholesterolemia, unspecified Comprehensive [place]. Panel Fast 4 Months E78.00 - Pure hypercholesterolemia, unspecified Coding Level of Care Code Est Pt Prev Care >65y(85601) Diagnoses Annual physical exam Z00.00 Pure hypercholesterolemia E78.00 Type 2 diabetes mellitus with stage 3b chronic kidney disease, with long-term current use of insulin E11.22; N18.32; Z79.4 Diabetes mellitus senior care insulin use: with senior care use Chronic kidney disease stage: stage 3 (moderate) Chronic kidney disease stage 3 subtype: stage 3b (GFR 30-44) Benign essential hypertension I10 Stage 3b chronic kidney disease N18.32 Chronic kidney disease stage 3 subtype: stage 3b (GFR 30-44) Esophagitis K20.90 Anemia, unspecified type D64.9 Anemia type: unspecified type Vitamin D deficiency E55.9 Constipation, unspecified constipation type K59.00 Constipation type: unspecified constipation type Hypercalcemia E83.52 Myalgia M79.10 Lumbar spondylosis M47.816 Primary osteoarthritis of both knees M17.0 Primary osteoarthritis of left foot M19.072 Peripheral polyneuropathy G62.9 Peripheral neuropathy type: polyneuropathy, unspecified Dysuria R30.0 Anxiety F41.9 Glaucoma of both eyes, unspecified glaucoma type H40.9 Glaucoma type: unspecified
[2023-07-04 12:44] VITALS: BP 120/72; PULSE 55; O2SAT 98; BMI 23.1
== END 2023-07-04 13:37 | disposition home or self-care (01) ==
PROVIDERS: Visit Provider Internal Medicine
DX: Z23 Encounter for immunization (principal)
CPT/HCPCS: 90471; 90686; 99397

== ENCOUNTER 2023-11-28 12:35 | Outpatient (AMB) | payer OTHER, SELFPAY ==
[2023-11-28 13:10] VITALS: BP 132/70; PULSE 56; TEMP 36.6; O2SAT 98; BMI 23.0
--- NOTE | 2023-11-28 13:10 | MHC.OFFWIV ---
Intake Vital Signs 11/28/23 13:10 Height 5 ft 5 in Weight 138 lb BMI 23.0 BP 132/70 Blood Pressure Location Lt brachial Position Sitting Pulse 56 Pulse Source Pulse Oximeter Temp 97.9 F Temp Source Temporal Artery Scan Pulse Oximetry (%) 98 Oxygen Delivery Method Room Air Intake Visit Reasons: EP Lower back pain/bathroom issues (lobby) Intake Note: pt is here today for lower back pain started 2 months ago Patient Tobacco Use Status: Never used Tobacco Allergies insulin isophane (NPH) [Humulin 70/30 U-100 Insulin] Allergy (Unknown, Verified 11/28/23 13:18) choking sensation insulin regular [Humulin 70/30 U-100 Insulin] Allergy (Unknown, Verified 11/28/23 13:18) choking sensation metformin Adverse Reaction (Unknown, Verified 11/28/23 13:18) dizziness, stomach upset Medication List - Last Reconciled 11/28/23 by GRACIELA Wei aspirin 81 mg PO DAILY 90 days atorvastatin 80 mg PO BEDTIME blood sugar diagnostic As directed blood sugar diagnostic BID blood sugar diagnostic (SynqeraTouch Ultra Test strips) 1 strip miscellaneous TID cholecalciferol (vitamin D3) 25 mcg PO DAILY 90 days docusate sodium 100 mg PO DAILY PRN dorzolamide-timolol 22.3-6.8 mg/mL 1 drp ophthalmic (eye) BID duloxetine 30 mg PO DAILY 30 days gabapentin 100 mg PO TID gabapentin 100 mg PO BEDTIME 30 days hydroxyzine HCl 25 mg PO TID PRN 10 days insulin NPH and regular human 100 unit/mL (70-30) (Novolin 70/30 U-100 Insulin) 30 units (0.3 mL) subcut BID 30 days insulin syringe-needle U-100 As directed insulin syringe-needle U-100 (BD Insulin Syringe Ultra-Fine) 1 mL miscellaneous BID 30 days lancets As directed latanoprost 0.005% 1 drp ophthalmic (eye) BEDTIME lisinopril 40 mg PO DAILY 90 days nitrofurantoin monohyd/m-cryst 100 mg (Macrobid) 100 mg PO Q12H 7 days omega 0-ygh-ils-fish oil 1,000 mg (120 mg-180 mg) (Fish Oil) 1 cap PO BID ondansetron 4 mg PO Q8H PRN oxybutynin chloride ER 10 mg PO DAILY 30 days oxycodone 5 mg PO Q6H PRN pantoprazole 40 mg PO DAILY prednisone 40 mg (2 x 20 mg) PO DAILY 5 days sennosides (Senna Lax) 17.2 mg (2 x 8.6 mg) PO BEDTIME PRN 30 days valacyclovir (Valtrex) 1,000 mg PO TID 14 days walker As directed Do you need a note to return to daycare/school/sports/work: No HPI HPI Comments History of Present Illness Details Patient is an 88-year-old female in today for sick visit. The patient has her daughter in the room with her. The patient has a past medical history significant for diabetes type 2, chronic kidney disease, lumbar spondylosis, anemia, GERD. Patient states that she has had bouts of constipation over the past 6 months, increased urinary frequency over the past 2 weeks, and lower back pain. Patient has utilized Colace and senna in the past with some relief, states she has not utilized it over the past several months. The patient is positive for UTI with in office urinalysis. Patient has utilized nitrofurantoin in the past with good effect, will prescribe. Will obtain lumbar x-ray, due to complaint of increased lower back pain. Patient has been educated that chronic constipation could be exacerbating this pain. Patient denies radiculopathy down limbs. For constipation patient will be given Colace and senna to be taken as directed. Patient has been instructed to eat diet high in fiber, and drink plenty water. 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 Mother Diabetes Stroke Son No problems noted. Son No problems noted. Daughter No problems noted. Social History Household Members: None Housing: Apartment Do you presently have visiting nurse or other home services: Yes Alcohol intake: never Patient Tobacco Use Status: Never used Tobacco e-Cigarette/Vaping Use: Never Used Second Hand Smoke Exposure: Yes service: No Current occupational status: retired and disabled Cognitive needs: No Hearing needs: No Vision needs: Yes Review of Systems Const All systems reviewed & are unremarkable except as noted in HPI and below Physical Exam Vital Signs: Last Vital Signs Temp 97.9 F 11/28/23 13:10 Pulse 56 11/28/23 13:10 BP 132/70 11/28/23 13:10 Pulse Ox 98 11/28/23 13:10 Oxygen Delivery Method Room Air 11/28/23 13:10 BMI result Body Mass Index 23.0 Const Other: Appearance: Alert.? Oriented X3.? No acute distress.? Head: Normocephalic, atraumatic. Eyes: Pupils equal, round and reactive to light.? ENT: Pharynx normal.? Neck: Normal inspection.? Neck supple.? CVS: Normal heart rate and rhythm.? Pulses normal.? Respiratory: No respiratory distress.? Breath sounds normal.? Neuro: Oriented X 3.? No motor deficit.? No sensory deficit. CN 2-12 intact Results AMB Urinalysis, Automated UA Leukoctes 15 Cullen/uL Last Edit by Marco Antonio Penaloza CMA on 11/28/23 13:43 UA Nitrite Negative Last Edit by Marco Antonio Penaloza CMA on 11/28/23 13:43 UA Urobilinogen 0.2 mg/dL Last Edit by Marco Antonio Penaloza CMA on 11/28/23 13:43 UA Protein 15 mg/dL Last Edit by Marco Antonio Penaloza CMA on 11/28/23 13:43 UA pH 6.0 Last Edit by Marco Antonio Penaloza CMA on 11/28/23 13:43 UA Blood 0 Roberto/uL Last Edit by Marco Antonio Penaloza CMA on 11/28/23 13:43 UA Specific [place] 1.020 Last Edit by Marco Antonio Penaloza CMA on 11/28/23 13:43 UA Ketone Negative Last Edit by Marco Antonio Penaloza CMA on 11/28/23 13:43 UA Bilirubin 0 mg/dL Last Edit by Marco Antonio Penaloza CMA on 11/28/23 13:43 UA Glucose 0 mg/dL Last Edit by Marco Antonio Penaloza CMA on 11/28/23 13:43 Results Reviewed Results Reviewed: Laboratory Last Values Urine pH (Auto) 6.0 11/28/23 13:42 Specific [place] (Auto) 1.020 11/28/23 13:42 Urine Protein (Auto) 15 mg/dL 11/28/23 13:42 Glucose (UA)(Auto) 0 mg/dL 11/28/23 13:42 Urine Ketones (Auto) Negative 11/28/23 13:42 Urine Blood (Auto) 0 Roberto/uL 11/28/23 13:42 Urine Nitrite (Auto) Negative 11/28/23 13:42 Urine Bilirubin (Auto) 0 mg/dL 11/28/23 13:42 Urine Urobilinogen (Auto) 0.2 mg/dL 11/28/23 13:42 Leukocyte Esterase (Auto) 15 Cullen/uL 11/28/23 13:42 Assessment & Plan Assessment & Plan (1) Lower back pain: Comment: Will obtain lumbar x-ray. Patient has been educated that constipation can sometimes exacerbate back pain. Patient can utilize Tylenol. Will follow-up with imaging results Code(s): M54.50 - Low back pain, unspecified Qualifiers: Chronicity: unspecified Back pain laterality: unspecified Sciatica presence: without sciatica Qualified Code(s): M54.50 - Low back pain, unspecified (2) Constipation: Comment: Will give Colace and senna. Patient educated on the importance of a high-fiber diet in the importance of regular bowel movements. Patient educated that chronic constipation can exacerbate or cause UTI symptoms. Will also draw labs Code(s): K59.00 - Constipation, unspecified Qualifiers: Constipation type: unspecified constipation type Qualified Code(s): K59.00 - Constipation, unspecified Plan: Take your medications as prescribed. If you were prescribed antibiotics today, it is important that you take your medication to their entirety, do not skip any doses, do not finish them early. Follow-up with your primary care provider this week. Return to the emergency department with new or worsening symptoms. Such as fevers, chills, chest pain, shortness of breath, nausea, vomiting, dizziness, headache, vision changes, lethargy In case of emergency call 911 (3) UTI (urinary tract infection): Comment: Will give patient Macrobid to be taken as prescribed. Patient has been educated on the signs of worsening symptoms and when to return to the walk-in or when to present to the ED. Code(s): N39.0 - Urinary tract infection, site not specified Plan: Please follow-up with PCP Plan Will call with lab results Orders: Orders Complete Blood Count Auto Diff Today Z13.0 - Encounter for screening for diseases of the blood and blood-forming organs and certain disorders involving the immune mechanism Comprehensive Met. Panel Today Z91.89 - Other specified personal risk factors, not elsewhere classified XR lumbar spine 2-3V Today M54.50 - Low back pain, unspecified AMB Urinalysis Automated Today Z13.9 - Encounter for screening, unspecified Medications: New nitrofurantoin macrocrystal must administer with a meal/food 100 mg PO Q12H 10 caps 0RF docusate sodium (Colace) 100 mg PO DAILY 20 caps 0RF sennosides (senna) 8.6 mg PO DAILY PRN 30 caps 0RF constipation Coding Level of Care Code Est Pt Level 3 (57534) Diagnoses Low back pain without sciatica, unspecified back pain laterality, unspecified chronicity M54.50 Chronicity: unspecified Back pain laterality: unspecified Sciatica presence: without sciatica Constipation, unspecified constipation type K59.00 Constipation type: unspecified constipation type UTI (urinary tract infection) N39.0 Time Spent (min) 21
== END 2023-11-28 16:05 | disposition home or self-care (01) ==
PROVIDERS: PCP Internal Medicine; Visit Provider Nurse Practitioner Primary Care
DX: M54.50 Low back pain, unspecified (principal); K59.00 Constipation, unspecified; N39.0 Urinary tract infection, site not specified
CPT/HCPCS: 81003; 99213

== ENCOUNTER 2023-11-28 13:42 | Outpatient (REF) | payer OTHER, SELFPAY ==
--- NOTE | ~2023-11-28 | XR_ITS ---
EXAMINATION: XR LUMBOSACRAL SPINE CLINICAL INFORMATION: Low back pain unspecified. COMPARISON: Bone survey 09/06/2022. Lumbar spine 05/30/2018. TECHNIQUE: Three views of the lumbosacral spine. FINDINGS: Dextroscoliosis of the lumbar spine. Bones are diffusely demineralized. Degenerative changes on limited views of the bilateral hips and sacroiliac joints. Redemonstration of dense calcification in the right upper quadrant of the abdomen measuring 1.3 cm, appearing to have increased in density and size, possibly related to the gallbladder. Ultrasound recommended for further evaluation. Degenerative changes in the imaged lower thoracic spine. Facet arthritis in the ipa-tb-wlerf lumbar spine. Atherosclerotic aortic calcifications. Minimal grade 1 retrolisthesis of L1 on L2 and of L2 on L3. Grade 1 anterolisthesis of L4 on L5 with mild loss of disc space height. XR/XR lumbar spine 2-3V IMPRESSION: 1. Redemonstration of dense oval calcification in the right upper quadrant of the abdomen measuring 1.3 cm, appearing to have increased in density and size, possibly related to the gallbladder. Ultrasound recommended for further evaluation. 2. Facet arthritis in the [id number] lumbar spine. 3. Multilevel degenerative disc disease most notable at L4-L5.
[2023-11-28 16:08] LABS: MANUAL DIFF FLAG NO
[2023-11-28 16:11] LABS: Basophils Percent Auto 0.4 % (0-2); Eosinophils Absolute Auto 1.1 X10*3/uL (0.0-0.4); Eosinophils Percent Auto 15.5 % (0-4); Hematocrit 28.7 % (37.0-47.0); Hemoglobin 9.6 g/dl (12.0-16.0); Imm Gran Abs Auto 0.02 X10*3/uL (0.00-0.03); Imm Gran Pct Auto 0.3 % (0.0-0.4); Lymphocytes Absolute Auto 2.6 X10*3/uL (1.2-4.9); Lymphocytes Percent Auto 35.5 % (20-40); Mean Corpuscular HGB Conc 33.4 g/dl (31.0-35.0); Mean Corpuscular Volume 92.6 fL (80.0-98.0); Mean Platelet Volume 11.1 fL (9.4-12.3); Monocytes Absolute Auto 0.7 X10*3/uL (0.1-1.2); Monocytes Percent Auto 8.8 % (2-11); Neutrophils Absolute Auto 2.9 x10*3/uL (2.0-8.3); Neutrophils Percent Auto 39.5 % (45-73); Platelet Count 142 X10*3/uL (160-400); Red Cell Distribution Width 12.5 % (11.0-16.0); White Blood Count 7.4 X10*3/uL (4.8-10.8)
[2023-11-28 16:29] LABS: Alanine Aminotransferase 19 U/L (0-31); Albumin Level 3.7 g/dL (3.5-5.0); Alkaline Phosphatase 55 U/L (39-117); Anion Gap 12 (12-20); Aspartate Amino Transferase 20 U/L (5-31); Bilirubin Total 0.7 mg/dL (0.0-1.0); Blood Urea Nitrogen 35 mg/dL (9-16); Calcium 9.8 mg/dL (8.4-10.2); Carbon Dioxide 24 mmol/L (22-29); Chloride 109 mmol/L (96-108); Estimated Glomerular Filt Rate 34; Glucose Random 77 mg/dL (60-115); Potassium 4.3 mmol/L (3.3-5.1); Sodium 141 mmol/L (135-145); Total Protein 7.1 g/dL (6.5-8.0)
== END 2023-11-28 13:43 | disposition home or self-care (01) ==
LOC: HO.HMGCX 13:42
PROVIDERS: PCP Internal Medicine; Visit Provider Nurse Practitioner Primary Care
DX: M54.50 Low back pain, unspecified (principal); Z13.0 Encounter for screening for diseases of the blood and blood-forming organs and certain disorders involving the immune mechanism; Z91.89 Other specified personal risk factors, not elsewhere classified
CPT/HCPCS: 36415; 72100; 80053; 85025

== ENCOUNTER 2023-12-21 09:16 | Outpatient (REF) | payer OTHER, SELFPAY ==
[2023-12-21 10:12] LABS: Estimated Average Glucose 123 mg/dL; Hemoglobin A1c % 5.9 % (<6.0)
[2023-12-21 10:21] LABS: Cholesterol 126 mg/dL (<200); HDL Cholesterol 52 mg/dL (>40); LDL Cholesterol Calculated 53 mg/dL (<100); Triglycerides 108 mg/dL (<150)
[2023-12-21 10:36] LABS: TSH reflex Free T4 1.23 uIU/mL (0.32-4.0); Vitamin D 25-OH Total 51.1 ng/mL (>30)
== END 2023-12-21 09:17 | disposition home or self-care (01) ==
LOC: HO.LAB 09:16
PROVIDERS: PCP Internal Medicine; Visit Provider Internal Medicine
DX: E78.00 Pure hypercholesterolemia, unspecified (principal); E11.9 Type 2 diabetes mellitus without complications; E55.9 Vitamin D deficiency, unspecified
CPT/HCPCS: 36415; 80061; 82306; 83036; 84443

== ENCOUNTER 2023-12-25 12:19 | Outpatient (AMB) | payer OTHER, SELFPAY ==
--- NOTE | 2023-12-25 12:35 | A.OFFPC_ITS ---
Vital Signs 12/25/23 12:38 Height 5 ft 5 in Weight 130 lb 4 oz BMI 21.7 BP 132/64 Blood Pressure Location Lt brachial Position Sitting Pulse 59 Pulse Source Pulse Oximeter Pulse Oximetry (%) 97 Oxygen Delivery Method Room Air Intake Visit Reasons: anemia, hyperlipidemia, DM, CKD, HTN Intake Note: Patient is here to follow up on Anemia, HLD, DM, CKD, HTN. 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 Senior Name: Iris (daughter) Information Interpreted: non-clinical & clinical Lithostripper: Present Accompanied by: Daughter Allergies insulin isophane (NPH) [Humulin 70/30 U-100 Insulin] Allergy (Unknown, Verified 12/25/23 13:01) choking sensation insulin regular [Humulin 70/30 U-100 Insulin] Allergy (Unknown, Verified 12/25/23 13:01) choking sensation metformin Adverse Reaction (Unknown, Verified 12/25/23 13:01) dizziness, stomach upset Medication List - Last Reconciled 12/25/23 by Aris Pierce MD aspirin 81 mg PO DAILY 90 days atorvastatin 80 mg PO BEDTIME blood sugar diagnostic As directed blood sugar diagnostic BID blood sugar diagnostic (OneTouch Ultra Test strips) 1 strip miscellaneous TID cholecalciferol (vitamin D3) 25 mcg PO DAILY 90 days docusate sodium (Colace) 100 mg PO DAILY dorzolamide-timolol 22.3-6.8 mg/mL 1 drp ophthalmic (eye) BID duloxetine 30 mg PO DAILY 30 days gabapentin 100 mg PO BEDTIME 30 days hydroxyzine HCl 25 mg PO TID PRN 10 days insulin NPH and regular human 100 unit/mL (70-30) (Novolin 70/30 U-100 Insulin) 30 units (0.3 mL) subcut BID 30 days insulin syringe-needle U-100 (BD Insulin Syringe Ultra-Fine) 1 mL miscellaneous BID 30 days insulin syringe-needle U-100 As directed lancets As directed latanoprost 0.005% 1 drp ophthalmic (eye) BEDTIME lisinopril 40 mg PO DAILY 90 days oxycodone 5 mg PO Q6H PRN pantoprazole 40 mg PO DAILY prednisone 40 mg (2 x 20 mg) PO DAILY 5 days sennosides (senna) 8.6 mg PO DAILY PRN walker As directed Tobacco use date assessed: 12/25/23 Fall risk assessment: No Falls in past year Last assessed Fall Risk: 12/25/23 Dental Screening Dental Screen Date: 12/25/23 Did you have a dental visit in the last 12 months?: No Did you have a dental problem in the last 6 months where you did not have access to dental care?: No Was dental information given to patient?: No HPI anemia, hyperlipidemia, DM, CKD, HTN HPI Details Patient comes in today for her follow up visit States that she presently feels okay Went to the walk in clinic in [place] last month for increasing abdominal pain and constipation She was also reportedly found to have a UTI and was started on Abx (Nitrofurantoin) as well as stool softeners to help address her constipation The rest of her work ups seemed to be unremarkable at the time Patient currently denies any headaches; still has on and off dizziness Denies any chest pains, no increased SOB No nausea/vomiting, no abdominal pain States that her bowels have been moving much better lately Had her follow up labs done a few days ago; also had some labs done at the walk- in last month - to discuss her results [facility] Medical History Normal colonoscopy (~01/09/07) Urinary incontinence Hypercalcemia Chronic kidney disease, stage III (moderate) Overweight (BMI 25.0-29.9) 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 Mother Diabetes Stroke Son No problems noted. Son No problems noted. Daughter No problems noted. Social History Household Members: None Housing: Apartment Do you presently have visiting nurse or other home services: Yes Alcohol intake: never Patient Tobacco Use Status: Never used Tobacco e-Cigarette/Vaping Use: Never Used Second Hand Smoke Exposure: Yes service: No Current occupational status: retired and disabled Cognitive needs: No Hearing needs: No Vision needs: Yes (Glasses) Questionnaire PHQ-9 Over the last 2 weeks, how often have you been bothered by any of the following problems? 1. Little interest or pleasure in doing things: not at all 2. Feeling down, depressed, or hopeless: not at all 3. Trouble falling or staying asleep, or sleeping too much: not at all 4. Feeling tired or having little energy: not at all 5. Poor appetite or overeating: not at all 6. Feeling bad about yourself - or that you are a failure or have let yourself or your family down: not at all 7. Trouble concentrating on things, such as reading the newspaper or watching television: not at all 8. Moving or speaking so slowly that other people could have noticed. Or the opposite - being so fidgety or restless that you have been moving around a lot more than usual: not at all 9. Thoughts that you would be better off or of hurting yourself in some way: not at all Total score: 0 Depression Screening Interpretation: Negative Depression Screening Done: Yes 94562 - PHQ-9 Billing: Yes Source: Developed by Drs. Jonathan Miles, Maureen Woodruff, David Brennan and colleagues, with an educational jose from [employer]. Thrive Questionnaire Date Thrive assessed: 12/25/23 I am a: Patient What is your living situation today?: I have a steady place to live Within the past 12 months, did the food you bought not last and you didn't have the money to get more?: Never true Within the past 12 months, did you worry whether your food would run out before you got money to buy more?: Never true Do you have trouble paying for medicines?: No Do you have trouble getting transportation to medical appointments?: No Do you have trouble paying your heating and electricity bill?: No Do you have trouble taking care of your child, family member or friend?: No Do you have trouble with day-to-day activities such as bathing, preparing meals, shopping, managing finances, etc.?: No Are you currently unemployed and looking for a job?: No Are you interested in more education?: No Currently or been in a relationship where the following occur: no concerns reported THRIVE Score: 0 AUDIT C Alcohol Use Questionnaire (AUDIT-C) 1. How often do you have a drink containing alcohol?: Never 3. How often do you have six or more drinks on one occasion?: Never Total Score: 0 Score Reviewed/Action Taken: Yes CATHIE-7 AMB Questionnaire CATHIE-7 Date CATHIE - 7 assessed: 12/25/23 Feeling nervous, anxious, or on edge: 0 = Not at all Not being able to stop or control worryin = Not at all Worrying too much about different things: 0 = Not at all Trouble relaxin = Not at all Being so restless that it is hard to sit still: 0 = Not at all Becoming easily annoyed or irritable: 0 = Not at all Feeling afraid as if something awful might happen: 0 = Not at all Total CATHIE-7 score (0-4 normal; 5-9 mild; 10-14 moderate; 15-21 severe): 0 Source: Developed by Drs. Jonathan Miles, Maureen Woodruff, David Brennan and colleagues, with an educational jose from [employer]. Review of Systems Const Denies chills, Denies fatigue, Denies fever(s) and Denies headache(s) ENT Denies dysphagia, Reports dizziness (on and off), Denies otalgia, Denies headache(s), Denies neck pain, Denies odynophagia and Denies sore throat Card Denies chest pain, Denies palpitations and Denies dyspnea Resp Denies cough, Denies dyspnea and Denies wheezing GI Denies abdominal pain, Reports constipation (better controlled lately), Denies dysphagia, Denies heartburn, Denies diarrhea, Denies nausea, Denies odynophagia and Denies vomiting Denies nocturia, Reports dysuria (mild) and Denies urinary urgency Musc Reports back pain (over the lumbar spine - chronic ), Reports arthralgias (over both knees), Denies neck pain and Reports tingling (on and off over both lower extremities) Skin/Breast Denies rash Neuro Reports dizziness (on and off), Denies headache(s), Reports tingling (on and off over both lower extremities) and Reports paresthesias (both feet, on and off) Psych Denies anxiety and Denies depression Endo Denies fatigue and Denies palpitations Ian/Lymph Denies easy bruising Aller/Immun Denies wheezing Physical exam (Primary Care) Vital Signs: Last Vital Signs Pulse 59 12/25/23 12:38 BP 132/64 12/25/23 12:38 Pulse Ox 97 12/25/23 12:38 Oxygen Delivery Method Room Air 12/25/23 12:38 BMI result Body Mass Index 21.7 Tobacco/Smoking Status: Tobacco use Status Tobacco use date assessed 12/25/23 12/25/23 12:47 Patient Tobacco Use Status Never used Tobacco 12/25/23 12:47 e-Cigarette/Vaping Use Never Used 12/25/23 12:47 PHQ-9: PHQ-9 Score PHQ-9: Total score 0 12/25/23 12:47 Depression Screening Interpretation: Negative Thrive Assessment: Date of Thrive Assessment Date Thrive assessed 12/25/23 12/25/23 12:47 Currently or been in a relationship where the following occur: no concerns reported Const General: no acute distress and alert HENMT Ears: TM's normal bilaterally and EAC's normal Throat: Yes posterior oropharynx normal and Yes tonsils normal (no TP congestion) Neck Neck: Yes no lymphadenopathy and Yes supple Thyroid: Thyroid normal Resp Auscultation: clear to auscultation bilaterally, no rales and no wheezes Cardio Rate: regular rate Rhythm: regular rhythm Heart sounds: no murmurs GI Palpation (GI): Soft to palpation and nontender Auscultation: normal bowel sounds General: Yes no CVA tenderness Back/Spine/Pelvis Back: no CVA tenderness Thoracic/Lumbar Spine: lumbar spinal tenderness Skin Rashes: no rashes Extrem General: Yes no clubbing, cyanosis or edema Results Reviewed Results Reviewed: Laboratory Tests 11/28/23 12/21/23 13:47 09:30 WBC 7.4 Hgb 9.6 L Hct 28.7 L Plt Count 142 L Sodium 141 Potassium 4.3 Creatinine 1.45 H Estimated GFR 34 Hemoglobin A1c % 5.9 Calcium 9.8 AST 20 ALT 19 Triglycerides 108 Cholesterol 126 LDL Cholesterol, Calc 53 HDL Cholesterol 52 25-OH Vitamin D Total 51.1 TSH 1.23 Assessment and Plan Assessment & Plan (1) Pure hypercholesterolemia: Code(s): E78.00 - Pure hypercholesterolemia, unspecified Plan: Results of her labs done a few days ago reviewed and discussed with patient Reinforced low cholesterol diet Continue Atorvastatin 80 mg QD and?Fish Oil ([place] 3) capsules 1000 mg BID Will recheck her labs and fasting lipids again in 4 months for follow-up (2) Type 2 diabetes mellitus with diabetic chronic kidney disease: Code(s): E11.22 - Type 2 diabetes mellitus with diabetic chronic kidney disease Qualifiers: 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: with laborer [employer] use Chronic kidney disease stage: stage 3 (moderate) Chronic kidney disease stage 3 subtype: stage 3b (GFR 30-44) Qualified Code(s): E11.22 - Type 2 diabetes mellitus with diabetic chronic kidney disease; N18.32 - Chronic kidney disease, stage 3b; Z79.4 - correction (current) use of insulin Plan: HgbA1c was at 5.9% on her labs done a few days ago (was previously at 5.5%) - goal is at least between 7.0% to 7.5% or lower Reinforced diabetic diet Continue Novolin 70/30 at 30 units BID (3) Benign essential hypertension: Code(s): I10 - Essential (primary) hypertension Plan: Reinforced low-sodium diet -? goal is systolic BP of at least 140-150 mm or less Continue Lisinopril 40 mg QD (4) Chronic kidney disease, stage III (moderate): Code(s): N18.30 - Chronic kidney disease, stage 3 unspecified Qualifiers: Chronic kidney disease stage 3 subtype: stage 3b (GFR 30-44) Qualified Code(s): N18.32 - Chronic kidney disease, stage 3b Plan: Stable - will continue to monitor GFR and serum creatinine regularly (5) Esophagitis: Code(s): K20.90 - Esophagitis, unspecified without bleeding Plan: Dietary restrictions reinforced Continue Pantoprazole 40 mg QD; she also used to take Sucralfate 1 gm QID but apparently stopped taking this a while back (6) Anemia: Code(s): D64.9 - Anemia, unspecified Qualifiers: Anemia type: unspecified type Qualified Code(s): D64.9 - Anemia, unspecified Plan: Patient is still anemic on her recent labs; iron function studies were normal - is most likely anemia of chronic disease (CKD) She has responded to ROSA MARIA injections when needed in the past Follow up with hematology as scheduled - patient's daughter states that they have been trying to contact Dr. 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 Patient educated on the importance of a high-fiber diet in the importance of regular bowel movements. Patient educated that chronic constipation can exacerbate or cause UTI symptoms. Will also draw labs Code(s): K59.00 - Constipation, unspecified Qualifiers: Constipation type: unspecified constipation type Qualified Code(s): K59.00 - Constipation, unspecified Plan: Encouraged increased oral fluids and dietary fiber Continue Senna 8.6 mg Q HS and Docusate 100 mg QD; she has taken Miralax in the past but does not like taste of it (10) Hypercalcemia: Code(s): E83.52 - Hypercalcemia Plan: Corrected - advised that her serum calcium level is back to normal on her recent labs Will continue to monitor her serum calcium level regularly (11) Myalgia: Code(s): M79.10 - Myalgia, unspecified site Plan: Continue Duloxetine 30 mg QD ESR done a few months ago came back normal (12) Lumbar spondylosis: Code(s): M47.816 - Spondylosis without myelopathy or radiculopathy, lumbar region Plan: Reinforced activity and weight lifting restrictions to minimize aggravating her back pain X-rays of the lumbar spine done in 2018 showed (+)? mild degenerative changes Advised again that if her low back pain persists or gets worse, will consider referring her back to physical therapy for further evaluation and management and/or repeat lumbar spine x-rays (13) Primary osteoarthritis of both knees: Code(s): M17.0 - Bilateral primary osteoarthritis of knee Plan: X-rays of both knees done a few months ago showed (+) mild OA changes in both knees Encouraged to continue regular knee exercises to help manage her knee symptoms and at her age, conservative treatment and management of her symptoms would be the best option (14) Primary osteoarthritis of left foot: Code(s): M19.072 - Primary osteoarthritis, left ankle and foot Plan: X-rays of the left foot and ankle done last year revealed also (+) mild OA changes -? 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 just for symptomatic relief but can be associated with potential side effects Advised to continue taking her Magnesium Oxide tablets 1 to 2 times a day as this may provide some relief of her neuropathic symptoms (16) Glaucoma of both eyes: Code(s): H40.9 - Unspecified glaucoma Qualifiers: Glaucoma type: unspecified Qualified Code(s): H40.9 - Unspecified glaucoma Plan: Continue Latanoprost solution 0.005% 1 drop into affected eye in the evening once a day and Dorzolamide HCL-Timolol Maleate solution 22.3-6.8 mg/mL 1 drop into affected eye twice a day Follow-up with Ophthalmology as scheduled (17) Anxiety: Code(s): F41.9 - Anxiety disorder, unspecified Plan: Continue Hydroxyzine 25 mg TID PRN Plan Follow up in 4 months Orders: Orders Hemoglobin A1c 4 Months E11.9 - Type 2 diabetes mellitus without complications Microalbumin, Random (w Creat) 4 Months E11.9 - Type 2 diabetes mellitus without complications TSH reflex Free T4 4 Months E78.00 - Pure hypercholesterolemia, unspecified Vitamin B12 and Folate 4 Months E53.8 - Deficiency of other specified B group vitamins Vitamin D 25-OH Total 4 Months E55.9 - Vitamin D deficiency, unspecified Lipid Panel 4 Months E78.00 - Pure hypercholesterolemia, unspecified Complete Blood Count Auto Diff 4 Months D64.9 - Anemia, unspecified Comprehensive [place]. Panel Fast 4 Months E78.00 - Pure hypercholesterolemia, unspecified UA CC w/rflx Micro + Cult 4 Months R30.0 - Dysuria Referrals Hematology & Oncology Referral D64.9 - Anemia, unspecified Medications: Refilled gabapentin 100 mg PO BEDTIME 30 days 30 caps 3RF Coding Level of Care Code Est Pt Level 4 (20594) Diagnoses Pure hypercholesterolemia E78.00 Type 2 diabetes mellitus with stage 3b chronic kidney disease, with long-term current use of insulin E11.22; N18.32; Z79.4 Diabetes mellitus penitentiary insulin use: with penitentiary use Chronic kidney disease stage: stage 3 (moderate) Chronic kidney disease stage 3 subtype: stage 3b (GFR 30-44) Benign essential hypertension I10 Stage 3b chronic kidney disease N18.32 Chronic kidney disease stage 3 subtype: stage 3b (GFR 30-44) Esophagitis K20.90 Anemia, unspecified type D64.9 Anemia type: unspecified type Dizziness R42 Vitamin D deficiency E55.9 Constipation, unspecified constipation type K59.00 Constipation type: unspecified constipation type Hypercalcemia E83.52 Myalgia M79.10 Lumbar spondylosis M47.816 Primary osteoarthritis of both knees M17.0 Primary osteoarthritis of left foot M19.072 Peripheral polyneuropathy G62.9 Peripheral neuropathy type: polyneuropathy, unspecified Glaucoma of both eyes, unspecified glaucoma type H40.9 Glaucoma type: unspecified Anxiety F41.9
[2023-12-25 12:38] VITALS: BP 132/64; PULSE 59; O2SAT 97; BMI 21.7
== END 2023-12-25 13:24 | disposition home or self-care (01) ==
PROVIDERS: PCP Internal Medicine; Visit Provider Internal Medicine
DX: E11.22 Type 2 diabetes mellitus with diabetic chronic kidney disease (principal); I12.9 Hypertensive chronic kidney disease with stage 1 through stage 4 chronic kidney disease, or unspecified chronic kidney disease; N18.32 Chronic kidney disease, stage 3b; Z79.4 Long term (current) use of insulin; K20.90 Esophagitis, unspecified without bleeding; D64.9 Anemia, unspecified; R42 Dizziness and giddiness; E55.9 Vitamin D deficiency, unspecified; K59.00 Constipation, unspecified; E83.52 Hypercalcemia; M79.10 Myalgia, unspecified site; M47.816 Spondylosis without myelopathy or radiculopathy, lumbar region
CPT/HCPCS: 99214

== ENCOUNTER 2024-03-04 12:59 | Outpatient (AMB) | payer OTHER, SELFPAY ==
[2024-03-04 13:00] VITALS: BP 122/60; PULSE 65; O2SAT 97; BMI 21.1
--- NOTE | 2024-03-04 13:00 | MHC.OFFWIV ---
Intake Vital Signs 03/04/24 13:00 Height 5 ft 5 in Weight 127 lb BMI 21.1 BP 122/60 Blood Pressure Location Rt brachial Position Sitting Pulse 65 Pulse Source Pulse Oximeter Pulse Oximetry (%) 97 Oxygen Delivery Method Room Air Intake Visit Reasons: EP Back/Hip pain Intake Note: Pt is here today for a walk in visit. Pt c/o lower back pain that goes down her hips for couple of weeks now. Patient Tobacco Use Status: Never used Tobacco Allergies insulin isophane (NPH) [Humulin 70/30 U-100 Insulin] Allergy (Unknown, Verified 03/04/24 13:05) choking sensation insulin regular [Humulin 70/30 U-100 Insulin] Allergy (Unknown, Verified 03/04/24 13:05) choking sensation metformin Adverse Reaction (Unknown, Verified 03/04/24 13:05) dizziness, stomach upset HPI HPI Comments History of Present Illness Details 88-year-old female who presents to the walk-in today for back pain. She is accompanied by her daughter. suffering with this pain for approximately 4 months. Evaluated in the walk-in 3 months ago for same has been suffering with some constipation, taking Colace and senna with good. 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 Mother Diabetes Stroke Son No problems noted. Son No problems noted. Daughter No problems noted. Social History Household Members: None Housing: Apartment Do you presently have visiting nurse or other home services: Yes Alcohol intake: never Patient Tobacco Use Status: Never used Tobacco e-Cigarette/Vaping Use: Never Used Second Hand Smoke Exposure: Yes service: No Current occupational status: retired and disabled Cognitive needs: No Hearing needs: No Vision needs: Yes (Glasses) Review of Systems Const All systems reviewed & are unremarkable except as noted in HPI and below Physical Exam Vital Signs: Last Vital Signs Pulse 65 03/04/24 13:00 BP 122/60 03/04/24 13:00 Pulse Ox 97 03/04/24 13:00 Oxygen Delivery Method Room Air 03/04/24 13:00 BMI result Body Mass Index 21.1 General: awake, alert, oriented. Answers questions appropriately. Fully engaged in examination. Skin: warm, dry, intact HEENT: Normocephalic. Hearing intact. Cardiac: External chest normal in appearance. Respiratory: No cough, audible wheezing or stridor. Abdomen: without gross distension. MS: No obvious swelling or deformities. tenderness midline lumbar vertebrae and lumbar paraspinal muscles facet loading positive SLR negative bilaterally nontender over bilateral PSIS Neurological: Oriented to person, place, time and situation. Thought process intact. No gait abnormalities appreciated. Psychiatric: Appropriate mood and affect. Good judgment and insight. Results Reviewed Results Reviewed: 11/28/2023 x-ray lumbar spine IMPRESSION: 1. Redemonstration of dense oval calcification in the right upper quadrant of the abdomen measuring 1.3 cm, appearing to have increased in density and size, possibly related to the gallbladder. Ultrasound recommended for further evaluation. 2. Facet arthritis in the [id number] lumbar spine. 3. Multilevel degenerative disc disease most notable at L4-L5. Assessment & Plan Assessment & Plan (1) Lumbar spondylosis: Code(s): M47.816 - Spondylosis without myelopathy or radiculopathy, lumbar region Plan lidocaine patches as directed continue with Tylenol as needed patient declined referral for physical therapy continue with senna/ Colace as needed. Refills not needed at this time per daughter follow up with PCP or return here for any new or worsening symptoms Medications: New lidocaine 5% leave on most painful area for up to 12 hrs 1 patch topical DAILY 30 ea 0RF Coding Level of Care Code Est Pt Level 3 (76852) Diagnoses Lumbar spondylosis M47.816
== END 2024-03-04 13:45 | disposition home or self-care (01) ==
PROVIDERS: PCP Internal Medicine; Visit Provider Registered Nurse Emergency
DX: M47.816 Spondylosis without myelopathy or radiculopathy, lumbar region (principal)
CPT/HCPCS: 99213

== ENCOUNTER 2024-05-21 13:55 | Outpatient (AMB) | payer OTHER, SELFPAY ==
[2024-05-21 14:28] VITALS: BP 130/70; PULSE 64; O2SAT 98; BMI 21.5
--- NOTE | 2024-05-21 14:28 | MHC.PC.OV ---
Vital Signs 05/21/24 14:28 Height 5 ft 5 in Weight 129 lb 2 oz BMI 21.5 BP 130/70 Blood Pressure Location Lt brachial Position Sitting Pulse 64 Pulse Source Pulse Oximeter Pulse Oximetry (%) 98 Oxygen Delivery Method Room Air Intake Visit Reasons: DM, hyperlipidemia, Anemia, HTN Data Specialist Required: No Accompanied by: Daughter Allergies insulin isophane (NPH) [Humulin 70/30 U-100 Insulin] Allergy (Unknown, Verified 05/21/24 15:06) choking sensation insulin regular [Humulin 70/30 U-100 Insulin] Allergy (Unknown, Verified 05/21/24 15:06) choking sensation metformin Adverse Reaction (Unknown, Verified 05/21/24 15:06) dizziness, stomach upset Medication List - Last Reconciled 05/21/24 by Aris Pierce MD aspirin 81 mg PO DAILY 90 days atorvastatin 80 mg PO BEDTIME blood sugar diagnostic As directed blood sugar diagnostic BID blood sugar diagnostic (AlediaTouch Ultra Test strips) 1 strip miscellaneous TID cholecalciferol (vitamin D3) 25 mcg PO DAILY 90 days docusate sodium (Colace) 100 mg PO DAILY dorzolamide-timolol 22.3-6.8 mg/mL 1 drp ophthalmic (eye) BID duloxetine 30 mg PO DAILY 30 days gabapentin 100 mg PO BEDTIME 30 days hydroxyzine HCl 25 mg PO TID PRN 10 days insulin NPH and regular human 100 unit/mL (70-30) (Novolin 70/30 U-100 Insulin) 30 units (0.3 mL) subcut BID 30 days insulin syringe-needle U-100 (BD Insulin Syringe Ultra-Fine) 1 mL miscellaneous BID 30 days insulin syringe-needle U-100 As directed lancets As directed latanoprost 0.005% 1 drp ophthalmic (eye) BEDTIME lidocaine 5% 1 patch topical DAILY lisinopril 40 mg PO DAILY 90 days pantoprazole 40 mg PO DAILY sennosides (senna) 8.6 mg PO DAILY PRN walker As directed Tobacco use date assessed: 05/21/24 Fall risk assessment: No Falls in past year Last assessed Fall Risk: 05/21/24 Dental Screening Dental Screen Date: 05/21/24 Did you have a dental visit in the last 12 months?: Yes Did you have a dental problem in the last 6 months where you did not have access to dental care?: No Was dental information given to patient?: Patient has dentist HPI DM, hyperlipidemia, Anemia, HTN HPI Details Patient comes in today for her follow up visit She has reportedly been experiencing recurrent dizziness for the past 6 months or more now States that her dizziness has been occurring very randomly at different times of the day, including when she is sleeping? 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 Mother Diabetes Stroke Son No problems noted. Son No problems noted. Daughter No problems noted. Social History Household Members: None Housing: Apartment Do you presently have visiting nurse or other home services: Yes Alcohol intake: never Patient Tobacco Use Status: Never used Tobacco e-Cigarette/Vaping Use: Never Used Second Hand Smoke Exposure: Yes service: No Current occupational status: retired and disabled Cognitive needs: No Hearing needs: No Vision needs: Yes (Glasses) Questionnaire PHQ-9 Over the last 2 weeks, how often have you been bothered by any of the following problems? 1. Little interest or pleasure in doing things: not at all 2. Feeling down, depressed, or hopeless: not at all 3. Trouble falling or staying asleep, or sleeping too much: not at all 4. Feeling tired or having little energy: not at all 5. Poor appetite or overeating: not at all 6. Feeling bad about yourself - or that you are a failure or have let yourself or your family down: not at all 7. Trouble concentrating on things, such as reading the newspaper or watching television: not at all 8. Moving or speaking so slowly that other people could have noticed. Or the opposite - being so fidgety or restless that you have been moving around a lot more than usual: not at all 9. Thoughts that you would be better off or of hurting yourself in some way: not at all Total score: 0 Depression Screening Interpretation: Negative Depression Screening Done: Yes 84722 - PHQ-9 Billing: Yes Source: Developed by Drs. Jonathan Miles, Maureen Woodruff, David Brennan and colleagues, with an educational jose from [employer]. Thrive Questionnaire Date Thrive assessed: 05/21/24 I am a: Patient What is your living situation today?: I have a steady place to live Within the past 12 months, did the food you bought not last and you didn't have the money to get more?: Never true Within the past 12 months, did you worry whether your food would run out before you got money to buy more?: Never true Do you have trouble paying for medicines?: No Do you have trouble getting transportation to medical appointments?: No Do you have trouble paying your heating and electricity bill?: No Do you have trouble taking care of your child, family member or friend?: No Do you have trouble with day-to-day activities such as bathing, preparing meals, shopping, managing finances, etc.?: No Are you currently unemployed and looking for a job?: No Are you interested in more education?: No Please select the resources that you would like help with: None Currently or been in a relationship where the following occur: No concerns reported THRIVE Score: 0 AUDIT C Alcohol Use Questionnaire (AUDIT-C) 1. How often do you have a drink containing alcohol?: Never 3. How often do you have six or more drinks on one occasion?: Never Total Score: 0 Score Reviewed/Action Taken: Yes CATHIE-7 AMB Questionnaire CATHIE-7 Date CATHIE - 7 assessed: 05/21/24 Feeling nervous, anxious, or on edge: 0 = Not at all Not being able to stop or control worryin = Not at all Worrying too much about different things: 0 = Not at all Trouble relaxin = Not at all Being so restless that it is hard to sit still: 0 = Not at all Becoming easily annoyed or irritable: 0 = Not at all Feeling afraid as if something awful might happen: 0 = Not at all Total CATHIE-7 score (0-4 normal; 5-9 mild; 10-14 moderate; 15-21 severe): 0 Source: Developed by Drs. Jonathan Miles, Maureen Woodruff, David Brennan and colleagues, with an educational jose from [employer]. Review of Systems Const Denies chills, Reports fatigue, Denies fever(s) and Denies headache(s) ENT Denies dysphagia, Reports dizziness (on and off), Denies otalgia, Denies headache(s), Denies neck pain, Denies odynophagia and Denies sore throat Card Denies chest pain, Denies palpitations and Denies dyspnea Resp Denies cough, Denies dyspnea and Denies wheezing GI Denies abdominal pain, Reports constipation (better controlled lately), Denies dysphagia, Denies heartburn, Denies diarrhea, Denies nausea, Denies odynophagia and Denies vomiting Denies nocturia, Denies dysuria and Denies urinary urgency Musc Reports back pain (over the lumbar spine - chronic ), Reports arthralgias (over both knees), Denies neck pain and Reports tingling (on and off over both lower extremities) Skin/Breast Denies rash Neuro Reports dizziness (on and off), Denies headache(s), Reports tingling (on and off over both lower extremities) and Reports paresthesias (both feet, on and off) Psych Denies anxiety and Denies depression Endo Reports fatigue and Denies palpitations Ian/Lymph Denies easy bruising Aller/Immun Denies wheezing Physical exam (Primary Care) Vital Signs: Last Vital Signs Pulse 64 05/21/24 14:28 BP 130/70 05/21/24 14:28 Pulse Ox 98 05/21/24 14:28 Oxygen Delivery Method Room Air 05/21/24 14:28 BMI result Body Mass Index 21.5 Tobacco/Smoking Status: Tobacco use Status Tobacco use date assessed 05/21/24 05/21/24 14:30 Patient Tobacco Use Status Never used Tobacco 05/21/24 14:30 e-Cigarette/Vaping Use Never Used 05/21/24 14:30 PHQ-9: PHQ-9 Score PHQ-9: Total score 0 05/21/24 15:07 Depression Screening Interpretation: Negative Thrive Assessment: Date of Thrive Assessment Date Thrive assessed 05/21/24 05/21/24 14:30 Currently or been in a relationship where the following occur: No concerns reported Const General: no acute distress and alert HENMT Ears: TM's normal bilaterally and EAC's normal Throat: Yes posterior oropharynx normal and Yes tonsils normal (no TP congestion) Neck Neck: Yes no lymphadenopathy and Yes supple Thyroid: Thyroid normal Resp Auscultation: clear to auscultation bilaterally, no rales and no wheezes Cardio Rate: regular rate Rhythm: regular rhythm Heart sounds: no murmurs GI Palpation (GI): Soft to palpation and nontender Auscultation: normal bowel sounds General: Yes no CVA tenderness Back/Spine/Pelvis Back: no CVA tenderness Thoracic/Lumbar Spine: lumbar spinal tenderness Skin Rashes: no rashes Extrem General: Yes no clubbing, cyanosis or edema Office Procedures Flu Questionnaire Does the patient have a severe egg allergy?: No Does the patient have severe life threatening allergies?: No Does the patient have a fever or illness today?: No Has the patient ever had Guillain-Ephrata Syndrome?: No Has the patient ever had any past reaction to a flu shot?: No Results AMB Hemoglobin A1c AMB Hemoglobin A1c 5.9 % Last Edit by GABBIE Marquez on 05/21/24 15:01 Immunizations Fluarix Triv [id number] (PF) 45 mcg (15 mcg x 3)/0.5 mL IM syringe Performing Provider: Aris Pierce MD [facility] [place] Documented (not given) by: GABBIE Marquez on 05/21/24 14:40 Reason Not Given: Patient Refused Results Reviewed Results Reviewed: Laboratory Last Values Hgb A1c (Clinic) 5.9 % (4.0-6.0) 05/21/24 14:31 Coding Level of Care Code Est Pt Level 4 (29385) Complex EM visit Add On G2211 Diagnoses Pure hypercholesterolemia E78.00 Type 2 diabetes mellitus with stage 3b chronic kidney disease, with long-term current use of insulin E11.22; N18.32; Z79.4 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 Chronic kidney disease stage: stage 3 (moderate) Chronic kidney disease stage 3 subtype: stage 3b (GFR 30-44) Benign essential hypertension I10 Stage 3b chronic kidney disease N18.32 Chronic kidney disease stage 3 subtype: stage 3b (GFR 30-44) Esophagitis K20.90 Anemia, unspecified type D64.9 Anemia type: unspecified type Dizziness R42 Peripheral polyneuropathy G62.9 Peripheral neuropathy type: polyneuropathy, unspecified Vitamin D deficiency E55.9 Constipation, unspecified constipation type K59.00 Constipation type: unspecified constipation type Hypercalcemia E83.52 Myalgia M79.10 Lumbar spondylosis M47.816 Primary osteoarthritis of both knees M17.0 Primary osteoarthritis of left foot M19.072 Glaucoma of both eyes, unspecified glaucoma type H40.9 Glaucoma type: unspecified Anxiety F41.9 Assessment & Plan Assessment & Plan (1) Pure hypercholesterolemia: Code(s): E78.00 - Pure hypercholesterolemia, unspecified Category: Medical Plan: Patient was not able to get her follow up labs done prior to her visit today Reinforced low cholesterol diet Continue Atorvastatin 80 mg QD and?Fish Oil (Strawberry 3) capsules 1000 mg BID Will recheck her labs and fasting lipids again in 4 months for follow-up (2) Type 2 diabetes mellitus with diabetic chronic kidney disease: Code(s): E11.22 - Type 2 diabetes mellitus with diabetic chronic kidney disease Category: Medical Qualifiers: 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 Chronic kidney disease stage: stage 3 (moderate) Chronic kidney disease stage 3 subtype: stage 3b (GFR 30-44) Qualified Code(s): E11.22 - Type 2 diabetes mellitus with diabetic chronic kidney disease; N18.32 - Chronic kidney disease, stage 3b; Z79.4 - alf (current) use of insulin Plan: Her in-office HgbA1c today is at 5.9% (her HgbA1c was also unchanged at 5.9% a few months ago) - goal is at least between 7.0% to 7.5% or lower Reinforced diabetic diet Continue Novolin 70/30 at 30 units BID (Rx refilled) (3) Benign essential hypertension: Code(s): I10 - Essential (primary) hypertension Category: Medical Plan: Reinforced low-sodium diet -? goal is systolic BP of at least 140-150 mm or less Continue Lisinopril 40 mg QD (4) Chronic kidney disease, stage III (moderate): Code(s): N18.30 - Chronic kidney disease, stage 3 unspecified Category: Medical Qualifiers: Chronic kidney disease stage 3 subtype: stage 3b (GFR 30-44) Qualified Code(s): N18.32 - Chronic kidney disease, stage 3b Plan: Stable - will continue to monitor GFR and serum creatinine regularly (5) Esophagitis: Code(s): K20.90 - Esophagitis, unspecified without bleeding Category: Medical Plan: Dietary restrictions reinforced Continue Pantoprazole 40 mg QD; she also used to take Sucralfate 1 gm QID but apparently stopped taking this a while back (6) Anemia: Code(s): D64.9 - Anemia, unspecified Category: Medical Qualifiers: Anemia type: unspecified type Qualified Code(s): D64.9 - Anemia, unspecified Plan: Patient was still anemic when she last had her labs done in November 2023 Her iron function studies were normal and this is most likely anemia of chronic disease (CKD) She has responded to ROSA MARIA injections when needed in the past Follow up with hematology as scheduled (7) Dizziness: Code(s): R42 - Dizziness and giddiness Category: Medical Plan: Recurrent - is likely multifactorial Patient's daughter states that patient has a tendency of not eating much at night and this could be part of the reason for her on and 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 - notes that she feels better after drinking some juice Have reminded patient that she is taking insulin injections so she should eat something even though she does not feel like eating Have advised that her anemia may also be contributing to her dizziness and she should see hematology again to help manage this Will also refer her to neurology for further evaluation and management as she reported feeling dizzy as well when she is lying down in bed, which is quite unusual (8) Peripheral neuropathy: Code(s): G62.9 - Polyneuropathy, unspecified Category: Medical Qualifiers: Peripheral neuropathy type: polyneuropathy, unspecified Qualified Code(s): G62.9 - Polyneuropathy, unspecified Plan: EMG and NCV done a couple of years ago 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 just for symptomatic relief but can be associated with potential side effects Patient is advised to continue taking her Magnesium Oxide tablets 1 to 2 times a day as this may provide some relief of her neuropathic symptoms (9) Vitamin D deficiency: Code(s): E55.9 - Vitamin D deficiency, unspecified Category: Medical Plan: Continue Vitamin D3 1000 units QD (10) Constipation: Comment: Will give Colace and senna. Patient educated on the importance of a high-fiber diet in the importance of regular bowel movements. Patient educated that chronic constipation can exacerbate or cause UTI symptoms. Will also draw labs Code(s): K59.00 - Constipation, unspecified Category: Medical Qualifiers: Constipation type: unspecified constipation type Qualified Code(s): K59.00 - Constipation, unspecified Plan: Encouraged increased oral fluids and dietary fiber Continue Senna 8.6 mg Q HS and Docusate 100 mg QD; she has taken Miralax in the past but does not like taste of it (11) Hypercalcemia: Code(s): E83.52 - Hypercalcemia Category: Medical Plan: Corrected - advised that her serum calcium level is back to normal on her recent labs Will continue to monitor her serum calcium level regularly (12) Myalgia: Code(s): M79.10 - Myalgia, unspecified site Category: Medical Plan: Continue Duloxetine 30 mg QD ESR done a few months ago came back normal (13) Lumbar spondylosis: Code(s): M47.816 - Spondylosis without myelopathy or radiculopathy, lumbar region Category: Medical Plan: Reinforced activity and weight lifting restrictions to minimize aggravating her back pain X-rays of the lumbar spine done in 2018 showed (+)? mild degenerative changes Advised again that if her low back pain persists or gets worse, will consider referring her back to physical therapy for further evaluation and management and/or repeat lumbar spine x-rays (14) Primary osteoarthritis of both knees: Code(s): M17.0 - Bilateral primary osteoarthritis of knee Category: Medical Plan: X-rays of both knees done a few months ago showed (+) mild OA changes in both knees Encouraged to continue regular knee exercises to help manage her knee symptoms and at her age, conservative treatment and management of her symptoms would be the best option (15) Primary osteoarthritis of left foot: Code(s): M19.072 - Primary osteoarthritis, left ankle and foot Category: Medical Plan: X-rays of the left foot and ankle done last year revealed also (+) mild OA changes -? will continue with conservative and symptomatic treatment only (16) Glaucoma of both eyes: Code(s): H40.9 - Unspecified glaucoma Category: Medical Qualifiers: Glaucoma type: unspecified Qualified Code(s): H40.9 - Unspecified glaucoma Plan: Continue Latanoprost solution 0.005% 1 drop into affected eye in the evening once a day and Dorzolamide HCL-Timolol Maleate solution 22.3-6.8 mg/mL 1 drop into affected eye twice a day Follow-up with Ophthalmology as scheduled (17) Anxiety: Code(s): F41.9 - Anxiety disorder, unspecified Category: Medical Plan: Continue Hydroxyzine 25 mg TID PRN Plan Follow up in 4 months Orders: Orders Complete Blood Count Auto Diff 4 Months D64.9 - Anemia, unspecified Lipid Panel 4 Months E78.00 - Pure hypercholesterolemia, unspecified Hemoglobin A1c 4 Months E11.9 - Type 2 diabetes mellitus without complications Influenza [id number] Immunization 05/21/24 Z23 - Encounter for immunization AMB Hemoglobin A1c 05/21/24 Z13.9 - Encounter for screening, unspecified Comprehensive [place]. 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
== END 2024-05-21 15:28 | disposition home or self-care (01) ==
PROVIDERS: PCP Internal Medicine; Visit Provider Internal Medicine
DX: I12.9 Hypertensive chronic kidney disease with stage 1 through stage 4 chronic kidney disease, or unspecified chronic kidney disease (principal); E11.22 Type 2 diabetes mellitus with diabetic chronic kidney disease; N18.32 Chronic kidney disease, stage 3b; Z79.4 Long term (current) use of insulin; E78.00 Pure hypercholesterolemia, unspecified; K20.90 Esophagitis, unspecified without bleeding; D64.9 Anemia, unspecified; R42 Dizziness and giddiness; G62.9 Polyneuropathy, unspecified; E55.9 Vitamin D deficiency, unspecified; K59.00 Constipation, unspecified; E83.52 Hypercalcemia

== ENCOUNTER → 2024-05-21 13:55 | Outpatient (BNVA) | payer OTHER, SELFPAY | PROVIDERS: PCP Internal Medicine; Visit Provider Internal Medicine | DX: I12.9 Hypertensive chronic kidney disease with stage 1 through stage 4 chronic kidney disease, or unspecified chronic kidney disease (principal); E11.22 Type 2 diabetes mellitus with diabetic chronic kidney disease; N18.32 Chronic kidney disease, stage 3b; Z79.4 Long term (current) use of insulin; D64.9 Anemia, unspecified; E78.00 Pure hypercholesterolemia, unspecified | CPT/HCPCS: 83036; 90471; 96127; 99212 ==

== ENCOUNTER 2024-07-01 09:31 | Outpatient (REF) | payer OTHER, SELFPAY ==
[2024-07-01 09:52] LABS: MANUAL DIFF FLAG NO
[2024-07-01 10:59] LABS: Basophils Percent Auto 0.3 % (0-2); Eosinophils Percent Auto 13.2 % (0-4); Hemoglobin 9.9 g/dl (12.0-16.0); Imm Gran Abs Auto 0.03 X10*3/uL (0.00-0.03); Imm Gran Pct Auto 0.4 % (0.0-0.4); Lymphocytes Absolute Auto 1.8 X10*3/uL (1.2-4.9); Lymphocytes Percent Auto 24.9 % (20-40); Mean Corpuscular Hemoglobin 30.5 pg (27.0-33.0); Mean Corpuscular Volume 92.3 fL (80.0-98.0); Mean Platelet Volume 10.9 fL (9.4-12.3); Monocytes Absolute Auto 0.6 X10*3/uL (0.1-1.2); Monocytes Percent Auto 7.8 % (2-11); Neutrophils Absolute Auto 3.9 x10*3/uL (2.0-8.3); Neutrophils Percent Auto 53.4 % (45-73); Platelet Count 149 X10*3/uL (160-400); Red Blood Count 3.25 X10*6/uL (4.20-5.50); Red Cell Distribution Width 12.8 % (11.0-16.0); White Blood Count 7.2 X10*3/uL (4.8-10.8)
[2024-07-01 11:03] LABS: Appearance Urine Cloudy; Color Urine Yellow; Glucose Urine UA Negative (Negative); Leukocyte Esterase Urine Large (3+) (Negative); Nitrite Urine Negative (Negative); PH 5.5 (5.0-9.0); Specific Gravity - Urine 1.015 (1.005-1.025); UMIC TRIGGER UACC YES; Urine Blood Negative (Negative); Urine Ketones Negative (Negative); Urine Protein 30 (1+) mg/dL (Neg-Trace)
[2024-07-01 11:05] LABS: Bacteria Urine Trace (None Seen); RBC Urine 0-2 /HPF (0-2); UACC Culture Trigger YES; WBC Urine 21-50 /HPF (0-5)
[2024-07-01 11:09] LABS: Estimated Average Glucose 117 mg/dL; Hemoglobin A1C 102.5681 umol/L; Hemoglobin A1c % 5.7 % (<6.0); Total Hemoglobin (HGBA1C) 2680.2538 umol/L
[2024-07-01 11:40] LABS: Creatinine Urine 112.25 mg/dL
[2024-07-01 11:47] LABS: Alanine Aminotransferase 13 U/L (0-31); Albumin Level 3.7 g/dL (3.5-5.0); Alkaline Phosphatase 63 U/L (39-117); Anion Gap 11 (12-20); Aspartate Amino Transferase 23 U/L (5-31); Bilirubin Total 0.8 mg/dL (0.0-1.0); Blood Urea Nitrogen 34 mg/dL (9-16); Calcium 9.6 mg/dL (8.4-10.2); Carbon Dioxide 22 mmol/L (22-29); Chloride 112 mmol/L (96-108); Cholesterol 135 mg/dL (<200); Estimated Glomerular Filt Rate 32; Glucose Fasting 113 mg/dL (60-99); HDL Cholesterol 42 mg/dL (>40); LDL Cholesterol Calculated 66 mg/dL (<100); Potassium 4.2 mmol/L (3.3-5.1); Sodium 141 mmol/L (135-145); Total Protein 7.2 g/dL (6.5-8.0); Triglycerides 137 mg/dL (<150)
[2024-07-01 12:05] LABS: TSH reflex Free T4 1.59 uIU/mL (0.32-4.0); Vitamin D 25-OH Total 42.6 ng/mL (>30)
[2024-07-01 12:15] LABS: Folate 11.2 ng/mL (> or = 4.0); Vitamin B12 1123 pg/mL (200-900)
== END 2024-07-01 09:32 | disposition home or self-care (01) ==
LOC: HO.LAB 09:31
PROVIDERS: PCP Internal Medicine; Visit Provider Internal Medicine
DX: D64.9 Anemia, unspecified (principal); E11.9 Type 2 diabetes mellitus without complications; E78.00 Pure hypercholesterolemia, unspecified; E53.8 Deficiency of other specified B group vitamins; E55.9 Vitamin D deficiency, unspecified; R30.0 Dysuria
CPT/HCPCS: 36415; 80053; 80061; 81001; 81003; 82043; 82306; 82570; 82607; 82746; 83036; 84443; 85025; 87086

== ENCOUNTER 2024-07-09 12:51 | Outpatient (AMB) | payer OTHER, SELFPAY ==
[2024-07-09 12:53] VITALS: BP 120/78; PULSE 65; O2SAT 96; BMI 21.7
--- NOTE | 2024-07-09 12:53 | MHC.PC.OV ---
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 Accompanied by: Self / Same As Patient Allergies insulin isophane (NPH) [Humulin 70/30 U-100 Insulin] Allergy (Unknown, Verified 07/09/24 13:24) choking sensation insulin regular [Humulin 70/30 U-100 Insulin] Allergy (Unknown, Verified 07/09/24 13:24) choking sensation metformin Adverse Reaction (Unknown, Verified 07/09/24 13:24) dizziness, stomach upset Medication List - Last Reconciled 07/09/24 by Aris Pierce MD aspirin 81 mg PO DAILY 90 days atorvastatin 80 mg PO BEDTIME blood sugar diagnostic As directed blood sugar diagnostic BID blood sugar diagnostic (VectorMAXTouch Ultra Test strips) 1 strip miscellaneous TID cholecalciferol (vitamin D3) 25 mcg PO DAILY 90 days docusate sodium (Colace) 100 mg PO DAILY dorzolamide-timolol 22.3-6.8 mg/mL 1 drp ophthalmic (eye) BID duloxetine 30 mg PO DAILY 30 days gabapentin 100 mg PO BEDTIME 30 days hydroxyzine HCl 25 mg PO TID PRN 10 days insulin NPH and regular human 100 unit/mL (70-30) (Novolin 70/30 U-100 Insulin) 30 units (0.3 mL) subcut BID 90 days insulin syringe-needle U-100 (BD Insulin Syringe Ultra-Fine) 1 mL miscellaneous BID 30 days insulin syringe-needle U-100 As directed lancets As directed latanoprost 0.005% 1 drp ophthalmic (eye) BEDTIME lidocaine 5% 1 patch topical DAILY lisinopril 40 mg PO DAILY 90 days pantoprazole 40 mg PO DAILY sennosides (senna) 8.6 mg PO DAILY PRN walker As directed Tobacco use date assessed: 07/09/24 Fall risk assessment: No Falls in past year Last assessed Fall Risk: 07/09/24 Dental Screening Dental Screen Date: 07/09/24 Did you have a dental visit in the last 12 months?: No Did you have a dental problem in the last 6 months where you did not have access to dental care?: No Was dental information given to patient?: No HPI Annual Exam - see comments HPI Details Patient comes in today for her annual physical examination Her daughter states that she continues to experience increased numbness and tingling sensation and sometimes pain in both of her legs and feet and patient states that she sometimes has a hard time walking as a result Notes that she feels very unsteady when her symptoms flare up She also continues to experience increased pain in her lower back and her daughter states that Tylenol does not seem to be helping her much lately and she has been having trouble sleeping at night for a while now with her lower back and leg issues lately Relates (+) fatigue; denies any increased headaches or dizziness lately She denies any chest pains, no increased SOB No nausea/vomiting, no abdominal pain No change in bowel habits noted She denies any acute urinary symptoms She had her follow up labs done last week - to discuss her results [facility] Medical History Normal colonoscopy (~01/09/07) Urinary incontinence Hypercalcemia Chronic kidney disease, stage III (moderate) Overweight (BMI 25.0-29.9) 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 Mother Diabetes Stroke Son No problems noted. Son No problems noted. Daughter No problems noted. Social History Household Members: None Housing: Apartment Do you presently have visiting nurse or other home services: Yes Alcohol intake: never Patient Tobacco Use Status: Never used Tobacco e-Cigarette/Vaping Use: Never Used Second Hand Smoke Exposure: Yes service: No Current occupational status: retired and disabled Cognitive needs: No Hearing needs: No Vision needs: Yes (Glasses) Questionnaire PHQ-9 Over the last 2 weeks, how often have you been bothered by any of the following problems? 1. Little interest or pleasure in doing things: several days 2. Feeling down, depressed, or hopeless: not at all 3. Trouble falling or staying asleep, or sleeping too much: not at all 4. Feeling tired or having little energy: not at all 5. Poor appetite or overeating: not at all 6. Feeling bad about yourself - or that you are a failure or have let yourself or your family down: not at all 7. Trouble concentrating on things, such as reading the newspaper or watching television: not at all 8. Moving or speaking so slowly that other people could have noticed. Or the opposite - being so fidgety or restless that you have been moving around a lot more than usual: not at all 9. Thoughts that you would be better off or of hurting yourself in some way: not at all Total score: 1 Depression Screening Interpretation: Negative Depression Screening Done: Yes 41714 - PHQ-9 Billing: Yes Source: Developed by Drs. Jonathan Miles, Maureen Woodruff, David Brennan and colleagues, with an educational jose from [employer]. Thrive Questionnaire Date Thrive assessed: 07/09/24 I am a: Patient What is your living situation today?: I have a steady place to live Within the past 12 months, did the food you bought not last and you didn't have the money to get more?: Never true Within the past 12 months, did you worry whether your food would run out before you got money to buy more?: Never true Do you have trouble paying for medicines?: No Do you have trouble getting transportation to medical appointments?: No Do you have trouble paying your heating and electricity bill?: No Do you have trouble taking care of your child, family member or friend?: No Do you have trouble with day-to-day activities such as bathing, preparing meals, shopping, managing finances, etc.?: Yes Are you currently unemployed and looking for a job?: No Are you interested in more education?: No Please select the resources that you would like help with: Daily support Currently or been in a relationship where the following occur: No concerns reported THRIVE Score: 0 AUDIT C Alcohol Use Questionnaire (AUDIT-C) 1. How often do you have a drink containing alcohol?: Never Total Score: 0 Score Reviewed/Action Taken: Yes CATHIE-7 AMB Questionnaire CATHIE-7 Date CATHIE - 7 assessed: 07/09/24 Feeling nervous, anxious, or on edge: 0 = Not at all Not being able to stop or control worryin = Not at all Worrying too much about different things: 1 = Several days Trouble relaxin = Not at all Being so restless that it is hard to sit still: 0 = Not at all Becoming easily annoyed or irritable: 0 = Not at all Feeling afraid as if something awful might happen: 0 = Not at all Total CATHIE-7 score (0-4 normal; 5-9 mild; 10-14 moderate; 15-21 severe): 1 Source: Developed by Drs. Jonathan Miles, Maureen Woodruff, David Brennan and colleagues, with an educational jose from [employer]. Review of Systems Const Denies chills, Reports fatigue, Denies fever(s) and Denies headache(s) Eyes Denies blurry vision, Denies change in vision, Denies irritation and Denies itchy eyes ENT Denies dysphagia, Reports dizziness (on and off), Denies otalgia, Denies headache(s), Denies neck pain, Denies odynophagia and Denies sore throat Card Denies chest pain, Denies palpitations and Denies dyspnea Resp Denies cough, Denies dyspnea and Denies wheezing GI Denies abdominal pain, Reports constipation (better controlled lately), Denies dysphagia, Denies heartburn, Denies diarrhea, Denies nausea, Denies odynophagia and Denies vomiting Denies nocturia, Denies dysuria and Denies urinary urgency Musc Reports back pain (over the lumbar spine - chronic ), Reports arthralgias (over both knees), Denies neck pain and Reports tingling (on and off over both lower extremities) Skin/Breast Denies rash Neuro Reports dizziness (on and off), Denies headache(s), Reports tingling (on and off over both lower extremities) and Reports paresthesias (both feet, on and off) Psych Denies anxiety and Denies depression Endo Reports fatigue and Denies palpitations Ian/Lymph Denies easy bruising Aller/Immun Denies itchy eyes and Denies wheezing Physical exam (Primary Care) Vital Signs: Last Vital Signs Pulse 65 07/09/24 12:53 BP 120/78 07/09/24 12:53 Pulse Ox 96 07/09/24 12:53 Oxygen Delivery Method Room Air 07/09/24 12:53 BMI result Body Mass Index 21.7 Tobacco/Smoking Status: Tobacco use Status Tobacco use date assessed 07/09/24 07/09/24 12:55 Patient Tobacco Use Status Never used Tobacco 07/09/24 12:55 e-Cigarette/Vaping Use Never Used 07/09/24 12:55 PHQ-9: PHQ-9 Score PHQ-9: Total score 1 07/09/24 13:43 Depression Screening Interpretation: Negative Thrive Assessment: Date of Thrive Assessment Date Thrive assessed 07/09/24 07/09/24 12:55 Currently or been in a relationship where the following occur: No concerns reported Const General: no acute distress and alert Orientation/consciousness: patient oriented x3 HENMT Head: Yes normocephalic and Yes atraumatic Ears: TM's normal bilaterally and EAC's normal General nose exam: No nasal discharge present Face and sinus: Yes normal facial exam and Yes sinuses nontender Teeth and gingiva: dentition normal Throat: Yes posterior oropharynx normal and Yes tonsils normal (no TP congestion) Eyes Eyelids: Yes eyelids normal Conjunctivae: conjunctivae normal Pupils: Equal, round and reactive pupils present EOM: EOMs intact bilaterally Neck Neck: Yes no lymphadenopathy and Yes supple Thyroid: Thyroid normal Resp Auscultation: clear to auscultation bilaterally, no rales and no wheezes Cardio Rate: regular rate Rhythm: regular rhythm Heart sounds: no murmurs GI Palpation (GI): Soft to palpation and nontender Auscultation: normal bowel sounds General: Yes no CVA tenderness Back/Spine/Pelvis Back: no CVA tenderness Thoracic/Lumbar Spine: lumbar spinal tenderness Skin Lesions: no lesions Rashes: no rashes Neuro General: patient oriented x3, moves all extremities, no focal motor deficits and CN's II-XI intact bilaterally Cranial nerves: Yes Equal, round and reactive pupils present Cognition (Neuro): normal cognition Gait exam (Neuro): Normal gait present Extrem General: Yes no clubbing, cyanosis or edema Results Reviewed Results Reviewed: Laboratory Tests 05/21/24 07/01/24 07/01/24 14:31 09:47 09:50 WBC 7.2 Hgb 9.9 L Hct 30.0 L Plt Count 149 L Sodium 141 Potassium 4.2 Creatinine 1.55 H Estimated GFR 32 Fasting Glucose 113 H Hgb A1c (Clinic) 5.9 Hemoglobin A1c % 5.7 Calcium 9.6 AST 23 ALT 13 Triglycerides 137 Cholesterol 135 LDL Cholesterol, Calc 66 HDL Cholesterol 42 Vitamin B12 1123 H 25-OH Vitamin D Total 42.6 TSH 1.59 Ur Specific [place] 1.015 Urine Protein 30 (1+) H Urine Glucose (UA) Negative Urine Blood Negative Urine Nitrite Negative Ur Leukocyte Esterase Large (3+) H Microalb/Creat Ratio 73.0 H Coding Level of Care Code Est Pt Prev Care >65y(73373) Diagnoses Annual physical exam Z00.00 Pure hypercholesterolemia E78.00 Type 2 diabetes mellitus with stage 3b chronic kidney disease, with long-term current use of insulin E11.22; N18.32; Z79.4 Diabetes mellitus [employer] insulin use: with nursing home use Chronic kidney disease stage: stage 3 (moderate) Chronic kidney disease stage 3 subtype: stage 3b (GFR 30-44) Benign essential hypertension I10 Stage 3b chronic kidney disease N18.32 Chronic kidney disease stage 3 subtype: stage 3b (GFR 30-44) Esophagitis K20.90 Anemia, unspecified type D64.9 Anemia type: unspecified type Dizziness R42 Peripheral polyneuropathy G62.9 Peripheral neuropathy type: polyneuropathy, unspecified Paresthesia of both lower extremities R20.2 Vitamin D deficiency E55.9 Constipation, unspecified constipation type K59.00 Constipation type: unspecified constipation type Hypercalcemia E83.52 Myalgia M79.10 Lumbar spondylosis M47.816 Primary osteoarthritis of both knees M17.0 Primary osteoarthritis of left foot M19.072 Glaucoma of both eyes, unspecified glaucoma type H40.9 Glaucoma type: unspecified Anxiety F41.9 Additional Codes PHQ-9 - 03598 - PHQ-9 Billing: Yes ([id number]) Assessment & Plan Assessment & Plan (1) Annual physical exam: Code(s): Z00.00 - Encounter for general adult medical examination without abnormal findings Category: Medical Plan: Result of her labs done last week reviewed and discussed with patient She no longer keeps up with her cancer screenings due to her age - these include annual mammography, gynecology exam and Pap smear as well as her screening colonoscopies (2) Pure hypercholesterolemia: Code(s): E78.00 - Pure hypercholesterolemia, unspecified Category: Medical Plan: Reinforced low cholesterol diet Continue Atorvastatin 80 mg QD and?Fish Oil ([place] 3) capsules 1000 mg BID Will recheck her labs and fasting lipids in 4 months for follow-up (3) Type 2 diabetes mellitus with diabetic chronic kidney disease: Code(s): E11.22 - Type 2 diabetes mellitus with diabetic chronic kidney disease Category: Medical Qualifiers: Diabetes mellitus 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 Chronic kidney disease stage: stage 3 (moderate) Chronic kidney disease stage 3 subtype: stage 3b (GFR 30-44) Qualified Code(s): E11.22 - Type 2 diabetes mellitus with diabetic chronic kidney disease; N18.32 - Chronic kidney disease, stage 3b; Z79.4 - assisted (current) use of insulin Plan: Her HgbA1c was at 5.7% on her labs done last week (in-office HgbA1c was at 5.9% a few months ago) - goal is at least between 7.0% to 7.5% or lower Reinforced diabetic diet Continue Novolin 70/30 at 30 units BID (4) Benign essential hypertension: Code(s): I10 - Essential (primary) hypertension Category: Medical Plan: Reinforced low-sodium diet -? goal is systolic BP of at least 140 to 150 mm or less Continue Lisinopril 40 mg QD (5) Chronic kidney disease, stage III (moderate): Code(s): N18.30 - Chronic kidney disease, stage 3 unspecified Category: Medical Qualifiers: Chronic kidney disease stage 3 subtype: stage 3b (GFR 30-44) Qualified Code(s): N18.32 - Chronic kidney disease, stage 3b Plan: Stable - will continue to monitor GFR and serum creatinine regularly (6) Esophagitis: Code(s): K20.90 - Esophagitis, unspecified without bleeding Category: Medical Plan: Dietary restrictions reinforced Continue Pantoprazole 40 mg QD; she also used to take Sucralfate 1 gm QID but apparently stopped taking this a while back (7) Anemia: Code(s): D64.9 - Anemia, unspecified Category: Medical Qualifiers: Anemia type: unspecified type Qualified Code(s): D64.9 - Anemia, unspecified Plan: Patient was still anemic on her recent labs done last week - H/H was at 9.9/30.0 Her iron function studies were normal and this is most likely anemia of chronic disease (CKD) She has responded to ROSA MARIA injections when needed in the past Follow up with hematology as scheduled (8) Dizziness: Code(s): R42 - Dizziness and giddiness Category: Medical Plan: Recurrent - is likely multifactorial Patient's daughter states that patient has a tendency of not eating much at night and this could be part of the reason for her on and off dizziness in the rn hyperbaric - notes that she feels better after drinking some juice Have reminded patient that she is taking insulin injections so she should eat something even though she does not feel like eating Have advised that her anemia may also be contributing to her dizziness and she should see hematology again to help manage this We also previously referred her to neurology for further evaluation but she has not been seen yet (9) Peripheral neuropathy: Code(s): G62.9 - Polyneuropathy, unspecified Category: Medical Qualifiers: Peripheral neuropathy type: polyneuropathy, unspecified Qualified Code(s): G62.9 - Polyneuropathy, unspecified Plan: EMG and NCV done a couple of years ago 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 just for symptomatic relief but can be associated with potential side effects Patient is advised to continue taking her Magnesium Oxide tablets 1 to 2 times a day as this may provide some relief of her neuropathic symptoms (10) Paresthesia of both lower extremities: Code(s): R20.2 - Paresthesia of skin Category: Medical Plan: Patient is advised that her recurrent paresthesia and pain of both lower extremities are likely due to her neuropathy Will send her for repeat EMG and NCV for further evaluation Will go ahead and increase her Gabapentin to 300 mg Q HS Will start her as well on Tramadol 50 mg BID PRN for severe pain (11) Vitamin D deficiency: Code(s): E55.9 - Vitamin D deficiency, unspecified Category: Medical Plan: Continue Vitamin D3 1000 units QD (12) Constipation: Comment: Will give Colace and senna. Patient educated on the importance of a high-fiber diet in the importance of regular bowel movements. Patient educated that chronic constipation can exacerbate or cause UTI symptoms. Will also draw labs Code(s): K59.00 - Constipation, unspecified Category: Medical Qualifiers: Constipation type: unspecified constipation type Qualified Code(s): K59.00 - Constipation, unspecified Plan: Encouraged increased oral fluids and dietary fiber Continue Senna 8.6 mg Q HS and Docusate 100 mg QD; she has taken Miralax in the past but does not like taste of it (13) Hypercalcemia: Code(s): E83.52 - Hypercalcemia Category: Medical Plan: Corrected - advised that her serum calcium level has remained normal on her recent labs Will continue to monitor her serum calcium level regularly (14) Myalgia: Code(s): M79.10 - Myalgia, unspecified site Category: Medical Plan: Continue Duloxetine 30 mg QD ESR done a few months ago came back normal (15) Lumbar spondylosis: Code(s): M47.816 - Spondylosis without myelopathy or radiculopathy, lumbar region Category: Medical Plan: Reinforced activity and weight lifting restrictions to minimize aggravating her back pain X-rays of the lumbar spine done in 2018 showed (+)? mild degenerative changes Advised again that if her low back pain persists or gets worse, will consider referring her back to physical therapy for further evaluation and management and/or repeat lumbar spine x-rays (16) Primary osteoarthritis of both knees: Code(s): M17.0 - Bilateral primary osteoarthritis of knee Category: Medical Plan: X-rays of both knees done a few months ago showed (+) mild OA changes in both knees Encouraged to continue regular knee exercises to help manage her knee symptoms and at her age, conservative treatment and management of her symptoms would be the best option (17) Primary osteoarthritis of left foot: Code(s): M19.072 - Primary osteoarthritis, left ankle and foot Category: Medical Plan: X-rays of the left foot and ankle done last year revealed also (+) mild OA changes -? will continue with conservative and symptomatic treatment only (18) Glaucoma of both eyes: Code(s): H40.9 - Unspecified glaucoma Category: Medical Qualifiers: Glaucoma type: unspecified Qualified Code(s): H40.9 - Unspecified glaucoma Plan: Continue Latanoprost solution 0.005% 1 drop into affected eye in the evening once a day and Dorzolamide HCL-Timolol Maleate solution 22.3-6.8 mg/mL 1 drop into affected eye twice a day Follow-up with Ophthalmology as scheduled (19) Anxiety: Code(s): F41.9 - Anxiety disorder, unspecified Category: Medical Plan: Continue Hydroxyzine 25 mg TID PRN Plan Follow up in 4 months Orders: Orders NE electromyogram (EMG) 07/09/24 M79.604 - Pain in right leg, M79.605 - Pain in left leg, R20.2 - Paresthesia of skin Complete Blood Count Auto Diff 4 Months D64.9 - Anemia, unspecified Comprehensive [place]. Panel Fast 4 Months E78.00 - Pure hypercholesterolemia, unspecified Lipid Panel 4 Months E78.00 - Pure hypercholesterolemia, unspecified Hemoglobin A1c 4 Months E11.9 - Type 2 diabetes mellitus without complications Microalbumin, Random (w Creat) 4 Months E11.9 - Type 2 diabetes mellitus without complications TSH reflex Free T4 4 Months E78.00 - Pure hypercholesterolemia, unspecified UA CC w/rflx Micro + Cult 4 Months R30.0 - Dysuria Erythrocyte Sedimentation Rate 4 Months M79.7 - Fibromyalgia NE nerve conduction velocity 07/09/24 M79.604 - Pain in right leg, M79.605 - Pain in left leg, R20.2 - Paresthesia of skin Vitamin D 25-OH Total 4 Months E55.9 - Vitamin D deficiency, unspecified Vitamin B12 and Folate 4 Months E53.8 - Deficiency of other specified B group vitamins Medications: New tramadol Take only as needed for severe pain 50 mg PO BID PRN 60 tabs 0RF pain Changed From gabapentin 100 mg PO BEDTIME 30 days 30 caps 3RF To gabapentin 300 mg PO BEDTIME 30 days 30 caps 3RF
== END 2024-07-09 13:48 | disposition home or self-care (01) ==
PROVIDERS: PCP Internal Medicine; Visit Provider Internal Medicine
DX: Z00.00 Encounter for general adult medical examination without abnormal findings (principal); I12.9 Hypertensive chronic kidney disease with stage 1 through stage 4 chronic kidney disease, or unspecified chronic kidney disease; E11.22 Type 2 diabetes mellitus with diabetic chronic kidney disease; N18.32 Chronic kidney disease, stage 3b; Z79.4 Long term (current) use of insulin; E78.00 Pure hypercholesterolemia, unspecified; K20.90 Esophagitis, unspecified without bleeding; D64.9 Anemia, unspecified; R42 Dizziness and giddiness; G62.9 Polyneuropathy, unspecified; R20.2 Paresthesia of skin; E55.9 Vitamin D deficiency, unspecified

== ENCOUNTER → 2024-07-09 12:51 | Outpatient (BNVA) | payer OTHER, SELFPAY | PROVIDERS: PCP Internal Medicine; Visit Provider Internal Medicine | DX: Z00.00 Encounter for general adult medical examination without abnormal findings (principal); E78.00 Pure hypercholesterolemia, unspecified; I12.9 Hypertensive chronic kidney disease with stage 1 through stage 4 chronic kidney disease, or unspecified chronic kidney disease; E11.22 Type 2 diabetes mellitus with diabetic chronic kidney disease; N18.32 Chronic kidney disease, stage 3b; K20.90 Esophagitis, unspecified without bleeding; R42 Dizziness and giddiness; G62.9 Polyneuropathy, unspecified; K59.00 Constipation, unspecified; E83.52 Hypercalcemia; M79.10 Myalgia, unspecified site; M47.816 Spondylosis without myelopathy or radiculopathy, lumbar region; M17.0 Bilateral primary osteoarthritis of knee; M19.072 Primary osteoarthritis, left ankle and foot; H40.9 Unspecified glaucoma; F41.9 Anxiety disorder, unspecified; Z79.4 Long term (current) use of insulin | CPT/HCPCS: 96127; 99397 ==

== ENCOUNTER 2024-11-11 13:23 | Outpatient (AMB) | payer OTHER, SELFPAY ==
[2024-11-11 13:33] VITALS: BP 118/76; PULSE 55; O2SAT 98; BMI 21.1
--- NOTE | 2024-11-11 13:33 | A.OFFPC_ITS ---
Vital Signs 11/11/24 13:33 Height 5 ft 5 in Weight 126 lb 8.725 oz BMI 21.1 BP 118/76 Blood Pressure Location Lt brachial Position Sitting Pulse 55 Pulse Source Pulse Oximeter Pulse Oximetry (%) 98 Oxygen Delivery Method Room Air Intake Visit Reasons: 4mth f/u Wireless Watcher Required: No Accompanied by: Self / Same As Patient Allergies insulin isophane (NPH) [Humulin 70/30 U-100 Insulin] Allergy (Unknown, Verified 11/11/24 14:08) choking sensation insulin regular [Humulin 70/30 U-100 Insulin] Allergy (Unknown, Verified 11/11/24 14:08) choking sensation metformin Adverse Reaction (Unknown, Verified 11/11/24 14:08) dizziness, stomach upset Medication List - Last Reconciled 11/11/24 by Aris Pierce MD aspirin 81 mg PO DAILY 90 days atorvastatin 80 mg PO BEDTIME blood sugar diagnostic As directed blood sugar diagnostic BID blood sugar diagnostic (LogicLibraryTouch Ultra Test strips) 1 strip miscellaneous TID cholecalciferol (vitamin D3) 25 mcg PO DAILY 90 days docusate sodium (Colace) 100 mg PO DAILY dorzolamide-timolol 22.3-6.8 mg/mL 1 drp ophthalmic (eye) BID duloxetine 30 mg PO DAILY 30 days gabapentin 100 mg PO BEDTIME 30 days hydroxyzine HCl 25 mg PO TID PRN 10 days insulin NPH and regular human 100 unit/mL (70-30) (Novolin 70/30 U-100 Insulin) 30 units (0.3 mL) subcut BID 90 days insulin syringe-needle U-100 (BD Insulin Syringe Ultra-Fine) 1 mL miscellaneous BID 30 days insulin syringe-needle U-100 As directed lancets As directed latanoprost 0.005% 1 drp ophthalmic (eye) BEDTIME lidocaine 5% 1 patch topical DAILY lisinopril 40 mg PO DAILY 90 days pantoprazole 40 mg PO DAILY sennosides (senna) 8.6 mg PO DAILY PRN tramadol 50 mg PO BID PRN walker As directed Tobacco use date assessed: 11/11/24 Fall risk assessment: No Falls in past year Last assessed Fall Risk: 11/11/24 Dental Screening Dental Screen Date: 11/11/24 Did you have a dental visit in the last 12 months?: No Did you have a dental problem in the last 6 months where you did not have access to dental care?: No Was dental information given to patient?: No HPI 4mth f/u HPI Details Patient comes in today for her follow up visit She continues to complain of multiple joint pains and recurrent pain/burning sensation/numbness of both feet and lower legs She was sent previously for EMG and NCV for further evaluation but she refused to go for the tests as she states that it hurts too much to get the tests done She denies any headaches or dizziness Denies any chest pains, no SOB No nausea/vomiting, no abdominal pain No change in bowel habits noted She was not able to get her follow up labs done prior to her appointment today [facility] Medical History Normal colonoscopy (~01/09/07) Urinary incontinence Hypercalcemia Chronic kidney disease, stage III (moderate) Overweight (BMI 25.0-29.9) 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 Mother Diabetes Stroke Son No problems noted. Son No problems noted. Daughter No problems noted. Social History Household Members: None Housing: Apartment Do you presently have visiting nurse or other home services: Yes Alcohol intake: never Patient Tobacco Use Status: Never used Tobacco e-Cigarette/Vaping Use: Never Used Second Hand Smoke Exposure: Yes service: No Current occupational status: retired and disabled Cognitive needs: No Hearing needs: No Vision needs: Yes (Glasses) Questionnaire PHQ-9 Over the last 2 weeks, how often have you been bothered by any of the following problems? 1. Little interest or pleasure in doing things: several days 2. Feeling down, depressed, or hopeless: not at all 3. Trouble falling or staying asleep, or sleeping too much: not at all 4. Feeling tired or having little energy: not at all 5. Poor appetite or overeating: not at all 6. Feeling bad about yourself - or that you are a failure or have let yourself or your family down: not at all 7. Trouble concentrating on things, such as reading the newspaper or watching television: not at all 8. Moving or speaking so slowly that other people could have noticed. Or the opposite - being so fidgety or restless that you have been moving around a lot more than usual: not at all 9. Thoughts that you would be better off or of hurting yourself in some way: not at all Total score: 1 Depression Screening Interpretation: Negative Depression Screening Done: Yes 34869 - PHQ-9 Billing: Yes Source: Developed by Drs. Jonathan Miles, Maureen Woodruff, David Brennan and colleagues, with an educational jose from [employer]. Thrive Questionnaire Date Thrive assessed: 11/11/24 I am a: Patient What is your living situation today?: I have a steady place to live Within the past 12 months, did the food you bought not last and you didn't have the money to get more?: Never true Within the past 12 months, did you worry whether your food would run out before you got money to buy more?: Never true Do you have trouble paying for medicines?: No Do you have trouble getting transportation to medical appointments?: No Do you have trouble paying your heating and electricity bill?: No Do you have trouble taking care of your child, family member or friend?: No Do you have trouble with day-to-day activities such as bathing, preparing meals, shopping, managing finances, etc.?: Yes Are you currently unemployed and looking for a job?: No Are you interested in more education?: No Please select the resources that you would like help with: Daily support Currently or been in a relationship where the following occur: No concerns reported THRIVE Score: 0 AUDIT C Alcohol Use Questionnaire (AUDIT-C) 1. How often do you have a drink containing alcohol?: Never 3. How often do you have six or more drinks on one occasion?: Never Total Score: 0 Score Reviewed/Action Taken: Yes CATHIE-7 AMB Questionnaire CATHIE-7 Date CATHIE - 7 assessed: 11/11/24 Feeling nervous, anxious, or on edge: 0 = Not at all Not being able to stop or control worryin = Not at all Worrying too much about different things: 1 = Several days Trouble relaxin = Not at all Being so restless that it is hard to sit still: 0 = Not at all Becoming easily annoyed or irritable: 0 = Not at all Feeling afraid as if something awful might happen: 0 = Not at all Total ACTHIE-7 score (0-4 normal; 5-9 mild; 10-14 moderate; 15-21 severe): 1 Source: Developed by Drs. Jonathan Miles, Maureen Woodruff, David Brennan and colleagues, with an educational jose from [employer]. Review of Systems Const Denies chills, Reports fatigue, Denies fever(s) and Denies headache(s) ENT Denies dysphagia, Reports dizziness (on and off), Denies otalgia, Denies headache(s), Denies neck pain, Denies odynophagia and Denies sore throat Card Denies chest pain, Denies palpitations and Denies dyspnea Resp Denies cough, Denies dyspnea and Denies wheezing GI Denies abdominal pain, Reports constipation (better controlled lately), Denies dysphagia, Denies heartburn, Denies diarrhea, Denies nausea, Denies odynophagia and Denies vomiting Denies nocturia, Denies dysuria and Denies urinary urgency Musc Reports back pain (over the lumbar spine - chronic ), Reports arthralgias (over both knees), Denies neck pain and Reports tingling (on and off over both lower extremities) Skin/Breast Denies rash Neuro Reports dizziness (on and off), Denies headache(s), Reports tingling (on and off over both lower extremities) and Reports paresthesias (both feet, on and off) Psych Denies anxiety and Denies depression Endo Reports fatigue and Denies palpitations Ian/Lymph Denies easy bruising Aller/Immun Denies wheezing Physical exam (Primary Care) Vital Signs: Last Vital Signs Pulse 55 11/11/24 13:33 BP 118/76 11/11/24 13:33 Pulse Ox 98 11/11/24 13:33 Oxygen Delivery Method Room Air 11/11/24 13:33 BMI result Body Mass Index 21.1 Tobacco/Smoking Status: Tobacco use Status Tobacco use date assessed 11/11/24 11/11/24 13:42 Patient Tobacco Use Status Never used Tobacco 11/11/24 13:42 e-Cigarette/Vaping Use Never Used 11/11/24 13:42 PHQ-9: PHQ-9 Score PHQ-9: Total score 1 11/11/24 14:15 Depression Screening Interpretation: Negative Thrive Assessment: Date of Thrive Assessment Date Thrive assessed 11/11/24 11/11/24 13:42 Currently or been in a relationship where the following occur: No concerns reported Const General: no acute distress and alert HENMT Ears: TM's normal bilaterally and EAC's normal Throat: Yes posterior oropharynx normal and Yes tonsils normal (no TP congestion) Neck Neck: Yes no lymphadenopathy and Yes supple Thyroid: Thyroid normal Resp Auscultation: clear to auscultation bilaterally, no rales and no wheezes Cardio Rate: regular rate Rhythm: regular rhythm Heart sounds: no murmurs GI Palpation (GI): Soft to palpation and nontender Auscultation: normal bowel sounds General: Yes no CVA tenderness Back/Spine/Pelvis Back: no CVA tenderness Thoracic/Lumbar Spine: lumbar spinal tenderness Skin Lesions: no lesions Rashes: no rashes Extrem Other: (+) multiple varicose veins/varicosities noted over both lower legs, ankles and feet General: No clubbing, No cyanosis and Yes pedal edema (1+ bilaterally) Results AMB Hemoglobin A1c AMB Hemoglobin A1c 6.2 % Last Edit by GABBIE Marquez on 11/11/24 14 :21 Coding Level of Care Code Est Pt Level 4 (54894) Diagnoses Pure hypercholesterolemia E78.00 Type 2 diabetes mellitus with stage 3b chronic kidney disease, with long-term current use of insulin E11.22; N18.32; Z79.4 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 Chronic kidney disease stage: stage 3 (moderate) Chronic kidney disease stage 3 subtype: stage 3b (GFR 30-44) Benign essential hypertension I10 Stage 3b chronic kidney disease N18.32 Chronic kidney disease stage 3 subtype: stage 3b (GFR 30-44) Esophagitis K20.90 Anemia, unspecified type D64.9 Anemia type: unspecified type Peripheral polyneuropathy G62.9 Peripheral neuropathy type: polyneuropathy, unspecified Paresthesia of both lower extremities R20.2 Vitamin D deficiency E55.9 Constipation, unspecified constipation type K59.00 Constipation type: unspecified constipation type Hypercalcemia E83.52 Myalgia M79.10 Lumbar spondylosis M47.816 Primary osteoarthritis of both knees M17.0 Primary osteoarthritis of left foot M19.072 Glaucoma of both eyes, unspecified glaucoma type H40.9 Glaucoma type: unspecified Anxiety F41.9 Additional Codes PHQ-9 - 75654 - PHQ-9 Billing: Yes ([id number]) Assessment & Plan Assessment & Plan (1) Pure hypercholesterolemia: Code(s): E78.00 - Pure hypercholesterolemia, unspecified Category: Medical Plan: Patient was not able to get her follow up labs done prior to her appointment today Her cholesterol levels were at goal when they were last checked a few months ago Reinforced low cholesterol diet Continue Atorvastatin 80 mg QD and?Fish Oil (Guin 3) capsules 1000 mg BID Will recheck her labs and fasting lipids in 4 months for follow-up - will just have patient use her current orders (updated and printed out) for her next lab draw (2) Type 2 diabetes mellitus with diabetic chronic kidney disease: Code(s): E11.22 - Type 2 diabetes mellitus with diabetic chronic kidney disease Category: Medical Qualifiers: 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 Chronic kidney disease stage: stage 3 (moderate) Chronic kidney disease stage 3 subtype: stage 3b (GFR 30-44) Qualified Code(s): E11.22 - Type 2 diabetes mellitus with diabetic chronic kidney disease; N18.32 - Chronic kidney disease, stage 3b; Z79.4 - assisted (current) use of insulin Plan: Her in-office HgbA1c done today is at 6.2% (her HgbA1c was previously at 5.7% on her labs done a few months ago) - goal is at least between 7.0% to 7.5% or lower Reinforced diabetic diet Continue Novolin 70/30 at 30 units BID (3) Benign essential hypertension: Code(s): I10 - Essential (primary) hypertension Category: Medical Plan: Reinforced low-sodium diet -? goal is systolic BP of at least 140 to 150 mm or less Continue Lisinopril 40 mg QD (4) Chronic kidney disease, stage III (moderate): Code(s): N18.30 - Chronic kidney disease, stage 3 unspecified Category: Medical Qualifiers: Chronic kidney disease stage 3 subtype: stage 3b (GFR 30-44) Qualified Code(s): N18.32 - Chronic kidney disease, stage 3b Plan: Stable - will continue to monitor GFR and serum creatinine regularly (5) Esophagitis: Code(s): K20.90 - Esophagitis, unspecified without bleeding Category: Medical Plan: Dietary restrictions reinforced Continue Pantoprazole 40 mg QD; she also used to take Sucralfate 1 gm QID but apparently stopped taking this a while back (6) Anemia: Code(s): D64.9 - Anemia, unspecified Category: Medical Qualifiers: Anemia type: unspecified type Qualified Code(s): D64.9 - Anemia, unspecified Plan: Patient was still anemic on her recent labs done a few months ago - H/H was at 9.9/30.0 Her iron function studies were normal and this is most likely anemia of chronic disease (CKD) She has responded to ROSA MARIA injections when needed in the past Follow up with hematology as scheduled (7) Peripheral neuropathy: Code(s): G62.9 - Polyneuropathy, unspecified Category: Medical Qualifiers: Peripheral neuropathy type: polyneuropathy, unspecified Qualified Code(s): G62.9 - Polyneuropathy, unspecified Plan: EMG and NCV done a couple of years ago 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 just for symptomatic relief but can be associated with potential side effects Patient is advised to continue taking her Magnesium Oxide tablets 1 to 2 times a day as this may provide some relief of her neuropathic symptoms (8) Paresthesia of both lower extremities: Code(s): R20.2 - Paresthesia of skin Category: Medical Plan: Patient is advised that her recurrent paresthesia and pain of both lower extremities are likely due to her neuropathy We sent her for repeat EMG and NCV for further evaluation but she did not want to go for the test as she feels it is too painful Continue Gabapentin 100 mg Q HS; she could not tolerate the Rx when we raised it up to 300 mg Continue Tramadol 50 mg BID PRN for severe pain (9) Vitamin D deficiency: Code(s): E55.9 - Vitamin D deficiency, unspecified Category: Medical Plan: Continue Vitamin D3 1000 units QD (10) Constipation: Comment: Will give Colace and senna. Patient educated on the importance of a high-fiber diet in the importance of regular bowel movements. Patient educated that chronic constipation can exacerbate or cause UTI symptoms. Will also draw labs Code(s): K59.00 - Constipation, unspecified Category: Medical Qualifiers: Constipation type: unspecified constipation type Qualified Code(s): K59.00 - Constipation, unspecified Plan: Encouraged again on increased oral fluids and dietary fiber Continue Senna 8.6 mg Q HS and Docusate 100 mg QD; she has taken Miralax in the past but does not like taste of it (11) Hypercalcemia: Code(s): E83.52 - Hypercalcemia Category: Medical Plan: Corrected - advised that her serum calcium level has remained normal on her previous labs Will continue to monitor her serum calcium level regularly (12) Myalgia: Code(s): M79.10 - Myalgia, unspecified site Category: Medical Plan: Continue Duloxetine 30 mg QD ESR done a few months ago came back normal (13) Lumbar spondylosis: Code(s): M47.816 - Spondylosis without myelopathy or radiculopathy, lumbar region Category: Medical Plan: Reinforced activity and weight lifting restrictions to minimize aggravating her back pain X-rays of the lumbar spine done in 2018 showed (+)? mild degenerative changes Advised again that if her low back pain persists or gets worse, will consider referring her back to physical therapy for further evaluation and management and/or repeat lumbar spine x-rays (14) Primary osteoarthritis of both knees: Code(s): M17.0 - Bilateral primary osteoarthritis of knee Category: Medical Plan: X-rays of both knees done a few months ago showed (+) mild OA changes in both knees Encouraged to continue regular knee exercises to help manage her knee symptoms and at her age, conservative treatment and management of her symptoms would be the best option (15) Primary osteoarthritis of left foot: Code(s): M19.072 - Primary osteoarthritis, left ankle and foot Category: Medical Plan: X-rays of the left foot and ankle done last year revealed also (+) mild OA changes -? will continue with conservative and symptomatic treatment only (16) Glaucoma of both eyes: Code(s): H40.9 - Unspecified glaucoma Category: Medical Qualifiers: Glaucoma type: unspecified Qualified Code(s): H40.9 - Unspecified glaucoma Plan: Continue Latanoprost solution 0.005% 1 drop into affected eye in the evening once a day and Dorzolamide HCL-Timolol Maleate solution 22.3-6.8 mg/mL 1 drop into affected eye twice a day Follow-up with Ophthalmology as scheduled (17) Anxiety: Code(s): F41.9 - Anxiety disorder, unspecified Category: Medical Plan: Continue Hydroxyzine 25 mg TID PRN Plan Follow up in 4 months Orders: Orders AMB Hemoglobin A1c Today Z13.9 - Encounter for screening, unspecified
== END 2024-11-11 14:36 | disposition home or self-care (01) ==
LOC: HO.HMCH 13:24
PROVIDERS: PCP Internal Medicine; Visit Provider Internal Medicine
DX: I12.9 Hypertensive chronic kidney disease with stage 1 through stage 4 chronic kidney disease, or unspecified chronic kidney disease (principal); E11.22 Type 2 diabetes mellitus with diabetic chronic kidney disease; Z79.4 Long term (current) use of insulin; N18.32 Chronic kidney disease, stage 3b; E78.00 Pure hypercholesterolemia, unspecified; K20.90 Esophagitis, unspecified without bleeding; D64.9 Anemia, unspecified; G62.9 Polyneuropathy, unspecified; R20.2 Paresthesia of skin; E55.9 Vitamin D deficiency, unspecified; K59.00 Constipation, unspecified; E83.52 Hypercalcemia

== ENCOUNTER → 2024-11-11 13:23 | Outpatient (BNVA) | payer OTHER, SELFPAY | PROVIDERS: PCP Internal Medicine; Visit Provider Internal Medicine | DX: E78.00 Pure hypercholesterolemia, unspecified (principal); I12.9 Hypertensive chronic kidney disease with stage 1 through stage 4 chronic kidney disease, or unspecified chronic kidney disease; E11.22 Type 2 diabetes mellitus with diabetic chronic kidney disease; N18.32 Chronic kidney disease, stage 3b; Z79.4 Long term (current) use of insulin; K20.90 Esophagitis, unspecified without bleeding; D64.9 Anemia, unspecified; R20.2 Paresthesia of skin; G62.9 Polyneuropathy, unspecified; E55.9 Vitamin D deficiency, unspecified; M79.10 Myalgia, unspecified site; M19.072 Primary osteoarthritis, left ankle and foot; M47.816 Spondylosis without myelopathy or radiculopathy, lumbar region; M17.0 Bilateral primary osteoarthritis of knee; H40.9 Unspecified glaucoma; F41.9 Anxiety disorder, unspecified | CPT/HCPCS: 83036; 96127; 99212 ==

== ENCOUNTER 2025-01-03 09:15 | Outpatient (REF) | payer OTHER, SELFPAY ==
--- OUTSIDE RECORDS SUMMARY | 2025-01-03 09:27 | XMS_ITS ---
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,FN P,PRODUCTION CONTROL COORDINATOR, [place] Address [address] [place] [id number] Phone [phone] [facility] Care Team Providers Care Administrator Of Home Health Name Role Phone Daylin Corral Unavailable [phone] [facility] Unavailable Reason for Referral Not Available Allergies, adverse reactions, alerts No known allergies History of medication use Medication Class Instructions Start Date End Date Aspirin Low Dose 81 mg Tab delayed rel TAKE 1 TABLET BY MOUTH EVERY DAY 2022-05-01 No Data Available OneTouch Ultra Strip USE 1 STRIP DIRE CTED 3 TIMES A DAY FOR FOR DIABETES MELLITUS 2022-07-22 No Data Available Atorvastatin Calcium 80 mg Tab TAKE 1 TABLET BY MOUTH EVERYDAY AT BEDTIME 2022-10-14 No Data Available hydrOXYzine 25 mg Tab TAKE 1 TABLET BY M OUTH THREE TIMES A DAY NEEDED FOR ANXIETY 2022-11-07 No Data Available Gabapentin 100 mg Cap TAKE 1 CAPSULE BY MOUTH EVERYDAY AT BEDTIME 2022-09-20 No Data Available NovoLIN 70/30 (70-30) 100 UNIT/ML Suspension INJECT 30 UNITS (0.3 ML) SUBCUTANEOUSLY 2 TIMES A DAY FOR DIABETES FOR 30 DAYS 2022-10-28 No Data Available oxyCODONE 5 mg Tab TAKE 1 TABLET BY OFELIA TH EVERY 6 HOURS NEEDED FOR PAIN 2022-11-15 No Data Available predniSONE 20 mg Tab TAKE 2 TABLETS BY M OUTH EVERY DAY FOR 5 DAYS FOR INFLAMMATION 2022-11-15 2023-04-25 valACYclovir 1 GM Tab TAKE 1 TABLET BY M OUTH THREE TIMES A DAY FOR 14 DAYS 2022-11-15 No Data Available DULoxetine 30 mg Cap delayed rel TAKE 1 CAPSULE BY MOUTH EVERY DAY 2022-10-14 No Data Available Dorzolamide HCl-Timolol Mal 22.3/6.8 mg/ML Solution INSTILL 1 DROP IN BOTH EYES TWICE A DAY TWELVE HOURS APART 2022-12-08 No Data Available Lisinopril 40 mg Tab TAKE 1 TABLET BY MO UTH EVERY DAY 2022-07-22 No Data Available Latanoprost 0.005 % Solution INSTILL 1 DROP INTO BOTH EYES AT BEDTIME 2022-12-08 No Data Available VITAMIN D3 1,000 UNIT SOFTGEL TAKE 1 CAPSULE BY MOUTH EVERY DAY 2022-10-14 No Data Available BD INSULIN SYR UF 1 ML [id number] INJECT 1 ML DIRECTED 2 TIMES A DAY FOR 30 DAYS 2022-09-14 No Data Available Pantoprazole Sodium 40 mg Tab delayed rel TAKE 1 TABLET BY MOUTH EVERY DAY 2023-01-30 No Data Available Aspirin 81 mg Tab delayed rel take 1 tablet orally once daily 2023-04-25 No Data Available Problem List Problem Status Onset Date Resolved Date History of CVA (cerebrovascu lar accident)Hemiplegia and hemiparesis following cerebral infarction affecting left non-dominant side Active 2023-04-25 N/A Type 2 diabetes mellitus wit h stage 3b chronic kidney disease Active 2023-04-25 N/A Thrombocytopenia Active 2023-04-25 N/A Diabetes mellitus without op hthalmic manifestationsGlaucoma Active 2023-04-25 N/A Recurrent major depressive episodes, mild Active 2023-04-25 N/A Type 2 diabetes mellitus wit h diabetic peripheral angiopathy without gangrene Active 2023-04-25 N/A Type 2 diabetes mellitus wit h other specified complicationType 2 diabetes mellitus with hyperlipidemia Active 2023-04-25 N/A HTN (hypertension) Active 2023-04-25 N/A Anemia Active 2023-04-25 N/A GERD (gastroesophageal reflux disease) Active 13-05-05 N/A Chronic low back pain Active 2023-04-25 N/A Other problems related to ga dical facilities and other health care Active 2024-04-02 N/A Encounters Encounters Type Facility Date of Service Diagnosis/Co mplaint New patient,40-59min; chronic exacerbation, 2 stable chronic or 1 acute illness add add modifier 95 for video (do not use for phone, instead use [id number]) [facility] ([place]) 04/25/2023 Type 2 diabetes mellitus wit h diabetic chronic kidney diseaseHypertensive chronic kidney disease w stg 1-4/unsp chr kdnyChronic kidney disease, stage 3bMajor depressive disorder, recurrent, mildPrsnl hx of TIA (TIA), and cereb infrc w/o resid deficitsHemiplga following cerebral infrc affecting left nondom sideType 2 diabetes w diabetic peripheral angiopath w/o gangreneLong term (current) use of insulinType 2 diabetes mellitus with other specified complicationHyperlipidemia, unspecifiedThrombocytopenia, unspecifiedUnspecified glaucomaAnemia, unspecifiedGastro-esophageal reflux disease without esophagitisLow back pain, unspecifiedOther chronic pain New patient,40-59min; chronic exacerbation, 2 stable chronic or 1 acute illness add add modifier 95 for video (do not use for phone, instead use [id number]) [facility] [place] 04/25/2023 New patient,40-59min; chronic exacerbation, 2 stable chronic or 1 acute illness add add modifier 95 for video (do not use for phone, instead use [id number]) [facility] [place] 04/25/2023 New patient,40-59min; chronic exacerbation, 2 stable chronic or 1 acute illness add add modifier 95 for video (do not use for phone, instead use [id number]) [facility] [place] 04/25/2023 New patient,40-59min; chronic exacerbation, 2 stable chronic or 1 acute illness add add modifier 95 for video (do not use for phone, instead use [id number]) [facility] [place] 04/25/2023 New patient,40-59min; chronic exacerbation, 2 stable chronic or 1 acute illness add add modifier 95 for video (do not use for phone, instead use 65744-28) [facility] [place] 04/25/2023 New patient,40-59min; chronic exacerbation, 2 stable chronic or 1 acute illness add add modifier 95 for video (do not use for phone, instead use 61630-88) [facility] [place] 04/25/2023 New patient,40-59min; chronic exacerbation, 2 stable chronic or 1 acute illness add add modifier 95 for video (do not use for phone, instead use [id number]) [facility] [place] 04/25/2023 New patient,40-59min; chronic exacerbation, 2 stable chronic or 1 acute illness add add modifier 95 for video (do not use for phone, instead use 71408-95) [facility] [place] 04/25/2023 New patient,40-59min; chronic exacerbation, 2 stable chronic or 1 acute illness add add modifier 95 for video (do not use for phone, instead use 23796-80) [facility] [place] 04/25/2023 Estab. patient 30-39min; chronic exacerbation, 2 stable chronic or 1 acute illness add add modifier 95 for video, (do not use for phone, instead use 89524-57) [facility] [place] 04/02/2024 Major depressive disorder, recurrent, mildHemiplga following cerebral infrc affecting left nondom sideType 2 diabetes w diabetic peripheral angiopath w/o gangreneType 2 diabetes mellitus with other specified complicationHyperlipidemia, unspecifiedType 2 diabetes mellitus with diabetic chronic kidney diseaseChronic kidney disease, stage 3bThrombocytopenia, unspecifiedHypertensive chronic kidney disease w stg 1-4/unsp chr kdnyUnspecified glaucomaAnemia, unspecifiedGastro-esophageal reflux disease without esophagitisLow back pain, unspecifiedOther chronic painOther problems related to medical facilities and other health care Estab. patient 30-39min; chronic exacerbation, 2 stable chronic or 1 acute illness add add modifier 95 for video, (do not use for phone, instead use 89045-33) [facility] [place] 04/02/2024 Estab. patient 30-39min; chronic exacerbation, 2 stable chronic or 1 acute illness add add modifier 95 for video, (do not use for phone, instead use [id number]) [facility] [place] ([place]) 04/02/2024 Estab. patient 30-39min; chronic exacerbation, 2 stable chronic or 1 acute illness add add modifier 95 for video, (do not use for phone, instead use [id number]) [facility] [place] 04/02/2024 Estab. patient 30-39min; chronic exacerbation, 2 stable chronic or 1 acute illness add add modifier 95 for video, (do not use for phone, instead use 63439-91) [facility] [place] 04/02/2024 Estab. patient 30-39min; chronic exacerbation, 2 stable chronic or 1 acute illness add add modifier 95 for video, (do not use for phone, instead use 91358-19) [facility] [place] 04/02/2024 Estab. patient 30-39min; chronic exacerbation, 2 stable chronic or 1 acute illness add add modifier 95 for video, (do not use for phone, instead use 12325-87) [facility] [place] 04/02/2024 Estab. patient 30-39min; chronic exacerbation, 2 stable chronic or 1 acute illness add add modifier 95 for video, (do not use for phone, instead use 84141-43) [facility] [place] 04/02/2024 Vital Signs Date of Collection Vitals 2023-04-25 08:35:19 Height - 162.56 cmWe ight - 65.77 kgBody Mass Index (BMI) - 24.89 kg/m2BP Diastolic - 67.0 mm[Hg]BP Systolic - 141.0 mm[Hg]Pain Scale - 4.0 {score} 2024-04-02 10:16:17 Height - 165.1 cmWei ght - 73.48 kgBody Mass Index (BMI) - 26.96 kg/m2 Social History Social History Social History Observation Description Effec tive Time Current Smoking Status Former smoker 2024-12-19 8 Sex Female History of Procedures Procedures Service Procedure code Service date Servicing provider Phone# New patient,40-59min; chronic exacerbation, 2 stable chronic or 1 acute illness add add modifier 95 for video (do not use for phone, instead use [id number]) 38688 2023-04-25 No Data Available No Data Availa ble Medication List Documented (1159F) 1159F 2023-04-25 No Data Available No Data Evelia ilable Medication Review by prescribing provider or pharmacist documented (1160F) 1160F 2023-04-25 No Data Available No Data Evelia ilable Functional Status Assessed (1170F) 1170F 2023-04-25 No Data Available No Data Avail able Pain Assessment - Pain Documented on a Pain Scale (1125F) 1125F 2023-04-25 No Data Available No Data Evelia ilable Advance Care Directive Advance care planning discussion documented in the medical record (1158F) 1158F 2023-04-25 No Data Available No Data Availa ble BMI obtained (3008F) 3008F 2023-04-25 No Data Availab le No Data Available SBP >= 140 3077F 2023-04-25 No Data Available No Data Available DBP <80 (3078F) 3078F 2023-04-25 No Data Available No Data Available Advance care planning discussed and documented ? advance care plan or surrogate decision-maker was documented in the medical record. (1123F) 1123F 2023-04-25 No Data Available No Data Availa ble Estab. patient 30-39min; chronic exacerbation, 2 stable chronic or 1 acute illness add add modifier 95 for video, (do not use for phone, instead use [id number]) 29640 2024-04-02 No Data Available No Data Availa ble Medication List Documented (1159F) 1159F 2024-04-02 No Data Available No Data Evelia ilable Medication Review by prescribing provider or pharmacist documented (1160F) 1160F 2024-04-02 No Data Available No Data Evelia ilable BMI obtained (3008F) 3008F 2024-04-02 No Data Availab le No Data Available Advance Care Directive Advance care planning discussion documented in the medical record (1158F) 1158F 2024-04-02 No Data Available No Data Availa ble Advance care planning discussed and documented ? advance care plan or surrogate decision-maker was documented in the medical record. (1123F) 1123F 2024-04-02 No Data Available No Data Availa ble Pain Assessment - NO pain present (1126F) 1126F 2024-04-02 No Data Available No Data A vailable Functional Status Assessed (1170F) 1170F 2024-04-02 No Data Available No Data Avail able Functional Status Functional Category Effective Dates Activities of Daily Livin2023-04-25 Bathing: Needs Some Assistance 5 Dressing: Needs Some Assistance Eating: Independent 2023-04-25 Ambulation/Walking: Needs Assistance, us es walker or cane as needed. 2023-04-25 Toileting: Needs Some Assistance 2023-04 Transferring: Needs Some Assistance 2022 Mental Status Status Date AAOX 3 2023-04-25 Assessments Date of Service Assessments 2023-04-25 08:35:19 Recurrent major depr essive episodes, mildHistory of CVA (cerebrovascular accident)Hemiplegia and hemiparesis following cerebral infarction affecting left non-dominant sideType 2 diabetes mellitus with diabetic peripheral angiopathy without gangreneType 2 diabetes mellitus with other specified complicationType 2 diabetes mellitus with hyperlipidemiaType 2 diabetes mellitus with stage 3b chronic kidney diseaseThrombocytopeniaHTN (hypertension)Diabetes mellitus without ophthalmic manifestationsGlaucomaAnemiaGERD (gastroesophageal reflux disease)Chronic low back pain 2024-04-02 10:16:17 Other problems relat ed to medical facilities and other health careRecurrent major depressive episodes, mildHistory of CVA (cerebrovascular accident)Hemiplegia and hemiparesis following cerebral infarction affecting left non-dominant sideType 2 diabetes mellitus with diabetic peripheral angiopathy without gangreneType 2 diabetes mellitus with other specified complicationType 2 diabetes mellitus with hyperlipidemiaType 2 diabetes mellitus with stage 3b chronic kidney diseaseThrombocytopeniaHTN (hypertension)Diabetes mellitus without ophthalmic manifestationsGlaucomaAnemiaGERD (gastroesophageal reflux disease)Chronic low back painOther problems related to medical facilities and other health care Plan of Care Date of Service Plans 2023-04-25 08:35:19 Medication Review by prescribing provider or pharmacist documented (1160F)Medication List Documented (1159F)Functional Status Assessed (1170F)Advance Care Directive Advance care planning discussion documented in the medical record (1158F)BMI obtained (3008F)SBP >= 140DBP <80 (3078F)Televideo new patient,40-59min; chronic exacerbation, 2 stable chronic or 1 acute illness add modifier 95Advance care planning discussed and documented ? advance care plan or surrogate decision-maker was documented in the medical record. (1123F)Pain Assessment - Pain Documented (1125F)Continue to see PCP. Follow-up with [facility] as needed for any acute or disease education needs that may arise.Follows up with PCP every 3 months.Reports doing well on current treatment. Denies any acute complaint. Sleeps well at night. Taking:DULoxetine 30 mg Cap delayed rel TAKE 1 CAPSULE BY MOUTH EVERY DAYDoing well on current treatment.Denies any acute complaint.Continue treatment as prescribed, follow up as instructed.Contact CB 24/7 as needed.History of CVA in 2021. No residual effects reported by daughter. Uses walker or cane to ambulate. Denies any compalints.Reports bilateral leg pain.Denies any skin ulcers at this time. Follows up with PCP every 3 months. Taking:Aspirin 81 mg Tab delayed rel take 1 tablet orally once dailyDoing well on current treatment.Denies any acute complaint.Continue treatment as prescribed, follow up as instructed.Contact CB 24/7 as needed.Follows up with: PCP every 3 months, next appt 05/23/2023.Glucose today at home: 150 mg/dl. Reports doing well on current treatment. No recent A1C found on outside records. Taking:DM:NovoLIN 70/30 (70-30) 100 UNIT/ML Suspension INJECT 30 UNITS (0.3 ML) SUBCUTANEOUSLY 2 TIMES A DAY HL: Atorvastatin Calcium 80 mg Tab TAKE 1 TABLET BY MOUTH EVERYDAY AT BEDTIMEDenies any acute complaint.Continue treatment as prescribed, follow up as instructed.Advised to follow low fat, low carb, heart healthy diet.Monitor Glucose regularly.Contact CB 24/7 as needed.Most recent labs obtained from outside records 12/01/22: GFR 35Follows up with PCP every 3 months.Avoid nephrotoxic medications (NSAIDS, high dose Gabapentin, Baclofen, Fleet Enema, Morphine/Codeine)Most recent labs obtained from outside records 12/01/22:Plt Count: 120Follows up with Booth Manager, last visit 02/2023. Pending to schedule appt to follow up. Advised to schedule appt for follow up.Contact CB 24/7 as needed.Follows up with: PCP every 3 months, next appt 05/23/2023. Reports doing well on current treatment.Last BP: 141/67, and 142/69, reported by patient. Taken by daughter at time of video encounter. Taking:Lisinopril 40 mg Tab TAKE 1 TABLET BY MOUTH EVERY DAYDenies any acute complaint.Continue treatment as prescribed, follow up as instructed.Monitor BP regularly at home and keep a log to provide BP readings on next f/u visit. Follow low Sodium diet. Contact CB 24/7 as needed.Denies any acute complaint. Follows up with Enterprise Resource Planning Consultant every 4 months. Using:Dorzolamide HCl-Timolol Mal 22.3/6.8 mg/ML Solution 1 DROP BID.Latanoprost 0.005 % Solution INSTILL 1 DROP QDDoing well on current treatment.Denies any acute complaint.Continue treatment as prescribed, follow up as instructed.Contact CB 24/7 as needed.Follows up with Booth Manager, last visit 02/2023. Was receiving injections for anemia. Pending to schedule appt to follow up. Denies any acute complaint. Advised to schedule appt for follow up.Contact CB 24/7 as needed.Follows up with PCP.Taking:Pantoprazole Sodium 40 mg Tab delayed rel TAKE 1 TABLET QDDenies any acute complaint.Follow up as instructed.Avoid triggers.Contact CB 24/7 as needed.Reports chronic low back pain.Follows up with PCP every 3 months.Uses cane or walker to ambulate.Taking:Gabapentin 100 mg Cap TAKE 1 CAPSULE BY MOUTH EVERYDAY AT BEDTIMEDenies any acute complaint.Continue treatment as prescribed, follow up as instructed.Contact CB 24/7 as needed. 2024-04-02 10:16:17 Televideo 30-39min; chronic exacerbation, 2 stable chronic or 1 acute illness add modifier 95Functional Status Assessed (1170F)BMI obtained (3008F)Advance Care Directive Advance care planning discussion documented in the medical record (1158F)Advance care planning discussed and documented ? advance care plan or surrogate decision-maker was documented in the medical record. (1123F)Pain Assessment - Pain Documented (1125F)Continue to see PCP. Follow-up with [facility] as needed for any acute or disease education needs that may arise.<Add contingency plans here>Follows up with PCP every 3 months.Reports doing well on current treatment. Denies any acute complaint. Sleeps well at night. Taking:DULoxetine 30 mg Cap delayed rel TAKE 1 CAPSULE BY MOUTH EVERY DAYDoing well on current treatment.Denies any acute complaint.Continue treatment as prescribed, follow up as instructed.Contact CB 24/7 as needed.04/02/24 : Continue current treatment plan as directed. Had a f/u with PCP in January.History of CVA in 2021. No residual effects reported by daughter. Uses walker or cane to ambulate. Denies any compalints.Reports bilateral leg pain.Denies any skin ulcers at this time. Follows up with PCP every 3 months. Taking:Aspirin 81 mg Tab delayed rel take 1 tablet orally once dailyDoing well on current treatment.Denies any acute complaint.Continue treatment as prescribed, follow up as instructed.Contact CB 24/7 as needed.04/02/24 : Continue current treatment plan as directed. Had a f/u with PCP in January.Follows up with: PCP every 3 months, next appt 05/23/2023.Glucose today at home: 150 mg/dl. Reports doing well on current treatment. No recent A1C found on outside records. Taking:DM:NovoLIN 70/30 (70-30) 100 UNIT/ML Suspension INJECT 30 UNITS (0.3 ML) SUBCUTANEOUSLY 2 TIMES A DAY HL: Atorvastatin Calcium 80 mg Tab TAKE 1 TABLET BY MOUTH EVERYDAY AT BEDTIMEDenies any acute complaint.Continue treatment as prescribed, follow up as instructed.Advised to follow low fat, low carb, heart healthy diet.Monitor Glucose regularly.Contact CB 24/7 as needed. 04/02/24 : Continue current treatment plan as directed. Had a f/u with PCP in January.Most recent labs obtained from outside records 12/01/22: GFR 35Follows up with PCP every 3 months.Avoid nephrotoxic medications (NSAIDS, high dose Gabapentin, Baclofen, Fleet Enema, Morphine/Codeine)Most recent labs obtained from outside records 12/01/22:Plt Count: 120Follows up with Booth Manager, last visit 02/2023. Pending to schedule appt to follow up. Advised to schedule appt for follow up.Contact CB 24/7 as needed.Follows up with: PCP every 3 months, next appt 05/23/2023. Reports doing well on current treatment.Last BP: 141/67, and 142/69, reported by patient. Taken by daughter at time of video encounter. Taking:Lisinopril 40 mg Tab TAKE 1 TABLET BY MOUTH EVERY DAYDenies any acute complaint.Continue treatment as prescribed, follow up as instructed.Monitor BP regularly at home and keep a log to provide BP readings on next f/u visit. Follow low Sodium diet. Contact CB 24/7 as needed. 04/02/24 : Continue current treatment plan as directed. Had a f/u with PCP in January.Denies any acute complaint. Follows up with [employer] Resource Planning Consultant every 4 months. Using:Dorzolamide HCl-Timolol Mal 22.3/6.8 mg/ML Solution 1 DROP BID.Latanoprost 0.005 % Solution INSTILL 1 DROP QDDoing well on current treatment.Denies any acute complaint.Continue treatment as prescribed, follow up as instructed.Contact CB 24/7 as needed.Follows up with Booth Manager, last visit 02/2023. Was receiving injections for anemia. Pending to schedule appt to follow up. Denies any acute complaint. Advised to schedule appt for follow up.Contact CB 24/7 as needed. 04/02/24 : Continue current treatment plan as directed. Had a f/u with PCP in January.Follows up with PCP.Taking:Pantoprazole Sodium 40 mg Tab delayed rel TAKE 1 TABLET QDDenies any acute complaint.Follow up as instructed.Avoid triggers.Contact CB 24/7 as needed. 04/02/24 : Continue current treatment plan as directed. Had a f/u with PCP in January.Reports chronic low back pain.Follows up with PCP every 3 months.Uses cane or walker to ambulate.Taking:Gabapentin 100 mg Cap TAKE 1 CAPSULE BY MOUTH EVERYDAY AT BEDTIMEDenies any acute complaint.Continue treatment as prescribed, follow up as instructed.Contact CB 24/7 as needed.04/02/24 : Continue current treatment plan as directed. Had a f/u with PCP in January. Reports low back pain 01/28. Also takes Tylenol PRNDIABETES CONTINGENCY PLANMember to call for the following symptoms: Blood sugar >300 / Polydipsia/ PolyuriaPlanned intervention: Start Short-acting insulin- Novolog Give short acting- if BG 250-300- 8U, 300-350- 10u, 350-400- 12u ,400-450- 14u/ Increase Novolin to 50 U/ Encourage adequate water intake/ Elevate legs/ Limit high-sugar and high-carbohydrate foods/ Go for a walk Goals Date Goal 2023-04-25 Remember to keep all appointments with your PCP and specialists. Call CB 24/7 if you have questions or concerns. Discussed how to contact Josette via phone or tablet. 24/7 phone number provided. 2024-04-02 Continue taking medi cations as directed and keep all follow up appointments with established PCP and Specialist. Health Concerns Date Concern 2024-04-02 Visit completed mike rousseau audio/video.Patient/Guardian agreed to visit via telehealth. Today, patient has chief complaint of: follow up care and comprehensive review.Reviewed Allergies, Medications, Active Medical conditions, past medical/surgical history, Social history. 2024-04-02 <add details of Adva nce Care Planning conversation using Advance Care Plan ConversationDate of Conversation: 04/02/2024Life Limiting Diagnosis: Diagnosis:Currently on Hospice NoCode Status: YES CPR: Attempt ResuscitationGoals of Care: Curative: Attempt to sustain life by all medically effective meansNutrition goals: No artificial nutrition desiredDo you have a Durable Power of Utility Manager for Healthcare, or Healthcare Proxy Or Guardianship? Yes, preferred proxy but not named POAIf so, Who? Iris - DaughterDo you have a written Advance Directive? Has no formal documentationOther details of discussion: Deferred to PCPToday's plan:1123F : AD or surrogate was documented in the medical record. 2024-04-02 Most recent hospital stay(s) or ER visit(s) and precipitating factors: Denies 2024-04-02 Open HEDIS Measure jake cotton: Reviewed
[2025-01-03 10:47] LABS: Basophils Percent Auto 0.4 % (0-2); Eosinophils Absolute Auto 1.4 X10*3/uL (0.0-0.4); Eosinophils Percent Auto 20.4 % (0-4); Hematocrit 30.8 % (37.0-47.0); Hemoglobin 10.1 g/dl (12.0-16.0); Imm Gran Abs Auto 0.02 X10*3/uL (0.00-0.03); Imm Gran Pct Auto 0.3 % (0.0-0.4); Lymphocytes Absolute Auto 2.2 X10*3/uL (1.2-4.9); Lymphocytes Percent Auto 31.3 % (20-40); MANUAL DIFF FLAG SCAN; Mean Corpuscular HGB Conc 32.8 g/dl (31.0-35.0); Mean Corpuscular Hemoglobin 30.1 pg (27.0-33.0); Mean Corpuscular Volume 91.7 fL (80.0-98.0); Mean Platelet Volume 11.2 fL (9.4-12.3); Monocytes Absolute Auto 0.5 X10*3/uL (0.1-1.2); Monocytes Percent Auto 6.4 % (2-11); Neutrophils Absolute Auto 2.9 x10*3/uL (2.0-8.3); Neutrophils Percent Auto 41.2 % (45-73); Platelet Count 121 X10*3/uL (160-400); Red Blood Count 3.36 X10*6/uL (4.20-5.50); Red Cell Distribution Width 12.7 % (11.0-16.0); SCAN SMEAR FLAG 1
[2025-01-03 10:52] LABS: Estimated Average Glucose 128 mg/dL; Hemoglobin A1C 114.8275 umol/L; Hemoglobin A1c % 6.1 % (<6.0); Total Hemoglobin (HGBA1C) 2681.3964 umol/L
[2025-01-03 11:21] LABS: Alanine Aminotransferase 14 U/L (0-31); Albumin Level 3.7 g/dL (3.5-5.0); Alkaline Phosphatase 59 U/L (39-117); Anion Gap 9 (12-20); Aspartate Amino Transferase 22 U/L (5-31); Bilirubin Total 0.6 mg/dL (0.0-1.0); Blood Urea Nitrogen 41 mg/dL (9-16); Calcium 9.7 mg/dL (8.4-10.2); Carbon Dioxide 26 mmol/L (22-29); Chloride 110 mmol/L (96-108); Cholesterol 132 mg/dL (<200); Estimated Glomerular Filt Rate 35; Glucose Fasting 88 mg/dL (60-99); HDL Cholesterol 47 mg/dL (>40); LDL Cholesterol Calculated 63 mg/dL (<100); Potassium 4.3 mmol/L (3.3-5.1); Sodium 141 mmol/L (135-145); Total Protein 6.9 g/dL (6.5-8.0); Triglycerides 110 mg/dL (<150)
[2025-01-03 11:42] LABS: SLIDE REVIEW VERIFIED
== END 2025-01-03 09:16 | disposition home or self-care (01) ==
LOC: HO.LAB 09:15
PROVIDERS: PCP Internal Medicine; Visit Provider Internal Medicine
DX: E78.00 Pure hypercholesterolemia, unspecified (principal); E11.9 Type 2 diabetes mellitus without complications; D64.9 Anemia, unspecified; G44.52 New daily persistent headache (NDPH)
CPT/HCPCS: 36415; 80053; 80061; 83036; 85025; 99212

== ENCOUNTER 2025-01-03 10:51 | Outpatient (AMB) | payer OTHER, SELFPAY ==
--- NOTE | 2025-01-03 10:59 | AM.OFFWIN_ITS ---
Intake Vital Signs 01/03/25 11:05 Weight 124 lb BP 120/82 Blood Pressure Location Lt brachial Position Sitting Pulse 62 Pulse Source Pulse Oximeter Pulse Oximetry (%) 97 Oxygen Delivery Method Room Air Intake Visit Reasons: EP Pain in back of head, dizziness Intake Note: Patient here for back of head pain that has been present for about 2 weeks. Patient Tobacco Use Status: Never used Tobacco Information Interpreted: non-clinical & clinical Sexual Assault Counselor: Present Accompanied by: Daughter Allergies insulin isophane (NPH) [Humulin 70/30 U-100 Insulin] Allergy (Unknown, Verified 01/03/25 11:04) choking sensation insulin regular [Humulin 70/30 U-100 Insulin] Allergy (Unknown, Verified 01/03/25 11:04) choking sensation metformin Adverse Reaction (Unknown, Verified 01/03/25 11:04) dizziness, stomach upset Do you need a note to return to daycare/school/sports/work: No HPI HPI Comments History of Present Illness Details History of Present Illness - The patient is an 89-year-old female w ith past med hx of CVA, CKD3, DM2, HTN, HLD, anemia, GERD and constipation presenting with persistent headache x 2 we eks. - Pain located in the posterior aspect o f the head extending to the neck, characterized as throbbing, comes and goes, not better with Tylenol, cannot use Ibuprofen due to renal concerns. - No recent head trauma or injury report ed; blood pressure stable at 120/82 mmHg. - Denies associated symptoms such as ron tophobia, phonophobia, nausea, vomiting, dizziness (except when she has an elevated glucose), ear pain, or fever. - Reduced dietary intake suggests potent ial dehydration, though not confirmed. - Baseline weakness present; no recent a cute changes. Physical Exam General: Cooperative, healthy appearing, comfortable, no acute distress and well developed Orientation: Patient oriented x3 Limitations: Finnish speaking, uses walker Head: Normal to inspection, atraumatic Ears: Hearing grossly normal bilaterally, no ear pain noted Nose: Normal External nose present Face and sinus: Normal facial exam Eyes: Appearance normal, both eyes and all related structures Neck: Normal visual inspection, but patient reports throbbing pain extending from the head Respiratory: Normal respiratory effort and able to speak in complete sentences. 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 Mother Diabetes Stroke Son No problems noted. Son No problems noted. Daughter No problems noted. Social History Household Members: None Housing: Apartment Do you presently have visiting nurse or other home services: Yes Alcohol intake: never Patient Tobacco Use Status: Never used Tobacco e-Cigarette/Vaping Use: Never Used Second Hand Smoke Exposure: Yes service: No Current occupational status: retired and disabled Cognitive needs: No Hearing needs: No Vision needs: Yes (Glasses) Review of Systems Const All systems reviewed & are unremarkable except as noted in HPI and below Physical Exam Vital Signs: Last Vital Signs Pulse 62 01/03/25 11:05 BP 120/82 01/03/25 11:05 Pulse Ox 97 01/03/25 11:05 Oxygen Delivery Method Room Air 01/03/25 11:05 Assessment & Plan Assessment & Plan (1) Headache, new daily persistent (NDPH): Code(s): G44.52 - New daily persistent headache (NDPH) Plan: VSS, patient well-appearing 2 weeks of a posterior throbbing headache that does not resolve with Tylenol. Possibly related to elevated blood sugars as patient does get dizzy during those times as well but patient was unable to confirm that is when it happens. A CT scan of the head is recommended for the patient to rule out any intracranial issues due to the persistence of symptoms and lack of relief from analgesics. The patient will be directed to the emergency department for evaluation and imaging. Called [facility] ED with rosa, spoke with Mercedes, 11:20AM. Patient was informed and verbally consented to the use of an ambient scribe for clinic note documentation during this visit. Coding Level of Care Code Est Pt Level 5 (66989) Diagnoses Headache, new daily persistent (NDPH) G44.52
[2025-01-03 11:05] VITALS: BP 120/82; PULSE 62; O2SAT 97
--- OUTSIDE RECORDS SUMMARY | 2025-01-03 11:22 | XMS_ITS ---
Author Name Ellis MECHANICAL ARTIST,DOCUMENTATION IMPROVEMENT SPECIALIST,FN P,GIFTED PROGRAM TEACHER, Daylin Address [address] [place] [id number] Phone [phone] [facility] Care Team Providers Care Occupational Therapist Rehab Manager Name Role Phone Daylin Corral Unavailable [phone] [facility] Unavailable [phone] Reason for Referral Not Available Allergies, adverse [...] Available BD INSULIN SYR UF 1 ML [id number] INJECT 1 ML DIRECTED 2 TIMES A [...] Active 2023-04-25 N/A Other problems related to ne dical facilities and other health care Active 2024-04-02 N/A Encounters Encounters Type Facility Date of Service Diagnosis/Co mplaint New patient,40-59min; chronic exacerbation, 2 stable chronic or 1 acute illness add add modifier 95 for video (do not use for phone, instead use 78809-01) [facility] ([place] 04/25/2023 Type 2 [...] (do not use for phone, instead use 35885-25) [facility] ([place] 04/[place]/2023 New patient,40-59min; chronic exacerbation, 2 stable chronic or 1 acute illness add add modifier 95 for video (do not use for phone, instead use 30848-68) [facility] [place]23 New patient,40-59min; chronic exacerbation, 2 stable chronic or 1 acute illness add add modifier 95 for video (do not use for phone, instead use 17132-63) [facility] [place] 04[place]/2023 New patient,40-59min; chronic exacerbation, 2 stable chronic or 1 acute illness add add modifier 95 for video (do not use for phone, instead use 58447-86) [facility] [place] 04[place]23 New patient,40-59min; chronic exacerbation, 2 stable chronic or 1 acute illness add add modifier 95 for video (do not use for phone, instead use 82700-94) [facility] [place] 04[place]/2023 New patient,40-59min; chronic exacerbation, 2 stable chronic or 1 acute illness add add modifier 95 for video (do not use for phone, instead use 32410-17) [facility] [place] 04/[place]/2023 New patient,40-59min; chronic exacerbation, 2 stable chronic or 1 acute illness add add modifier 95 for video (do not use for phone, instead use 71835-30) [facility] [place] 04[place]/2023 New patient,40-59min; chronic exacerbation, 2 stable chronic or 1 acute illness add add modifier 95 for video (do not use for phone, instead use 51254-24) [facility] [place] 04/[place]/2023 New patient,40-59min; chronic exacerbation, 2 stable chronic or 1 acute illness add add modifier 95 for video (do not use for phone, instead use 77206-79) [facility] [place] 04/[place]/2023 Estab. patient 30-39min; chronic exacerbation, 2 stable chronic or 1 acute illness add add modifier 95 for video, (do not use for phone, instead use 66658-47) [facility] [place] 04/02/2024 Major depressive disorder, recurrent, mildHemiplga following [...] (do not use for phone, instead use 05013-62) [facility] [place]24 Estab. patient 30-39min; chronic exacerbation, 2 stable chronic or 1 acute illness add add modifier 95 for video, (do not use for phone, instead use 39993-98) [facility] ([place]) 04/02/2024 Estab. patient 30-39min; chronic exacerbation, 2 stable chronic or 1 acute illness add add modifier 95 for video, (do not use for phone, instead use 17850-37) [facility] [place] 04/02/2024 Estab. patient 30-39min; chronic exacerbation, 2 stable chronic or 1 acute illness add add modifier 95 for video, (do not use for phone, instead use 51294-83) [facility] [place]24 Estab. patient 30-39min; chronic exacerbation, 2 stable chronic or 1 acute illness add add modifier 95 for video, (do not use for phone, instead use 05783-13) [facility] [place]24 Estab. patient 30-39min; chronic exacerbation, 2 stable chronic or 1 acute illness add add modifier 95 for video, (do not use for phone, instead use 97272-39) [facility] [place] 04/02/2024 Estab. patient 30-39min; chronic exacerbation, 2 stable chronic or 1 acute illness add add modifier 95 for video, (do not use for phone, instead use 35061-34) [facility] [place] 04/[place]/2024 Vital Signs Date of Collection Vitals [...] (do not use for phone, instead use 11590-12) [id number] 2023-04-25 No Data Available No Data Availa [...] (do not use for phone, instead use 12688-97) [id number] 2024-04-02 No Data Available No Data Availa [...] outside records 12/01/22:Plt Count: 120Follows up with [employer] [facility], last visit 02/2023. Pending to schedule appt [...] needed.Denies any acute complaint. Follows up with [facility] every 4 months. Using:Dorzolamide HCl-Timolol Mal 22.3/6.8 mg/ML Solution 1 DROP BID.Latanoprost 0.005 % Solution INSTILL 1 DROP QDDoing well on current treatment.Denies any acute complaint.Continue treatment as prescribed, follow up as instructed.Contact CB 24/7 as needed.Follows up with [employer] [facility], last visit 02/2023. Was receiving injections for [...] outside records 12/01/22:Plt Count: 120Follows up with [employer] [facility], last visit 02/2023. Pending to schedule appt [...] January.Denies any acute complaint. Follows up with [facility] every 4 months. Using:Dorzolamide HCl-Timolol Mal 22.3/6.8 mg/ML Solution 1 DROP BID.Latanoprost 0.005 % Solution INSTILL 1 DROP QDDoing well on current treatment.Denies any acute complaint.Continue treatment as prescribed, follow up as instructed.Contact CB 24/7 as needed.Follows up with [employer] [facility], last visit 02/2023. Was receiving injections for [...] desiredDo you have a Durable Power of Telehealth Case Manager for Healthcare, or Healthcare Proxy Or [...]
== END 2025-01-03 12:14 | disposition home or self-care (01) ==
PROVIDERS: PCP Internal Medicine; Visit Provider Physician Assistant
DX: G44.52 New daily persistent headache (NDPH) (principal)

== ENCOUNTER 2025-03-17 13:25 | Outpatient (AMB) | payer OTHER, SELFPAY ==
[2025-03-17 13:36] VITALS: BP 132/88; PULSE 70; O2SAT 98; BMI 20.5
--- NOTE | 2025-03-17 13:36 | MHC.PC.OV ---
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 Accompanied by: Self / Same As Patient Allergies insulin isophane (NPH) (Humulin 70/30 U-100 Insulin) Allergy (Unknown, Verified 03/17/25 14:03) choking sensation insulin regular (Humulin 70/30 U-100 Insulin) Allergy (Unknown, Verified 03/17/25 14:03) choking sensation metformin Adverse Reaction (Unknown, Verified 03/17/25 14:03) dizziness, stomach upset Medication List - Last Reconciled 03/17/25 by Aris Pierce MD aspirin 81 mg PO DAILY 90 days atorvastatin 80 mg PO BEDTIME blood sugar diagnostic As directed blood sugar diagnostic BID blood sugar diagnostic (PansieveTouch Ultra Test strips) 1 strip miscellaneous TID cholecalciferol (vitamin D3) 25 mcg PO DAILY 90 days docusate sodium (Colace) 100 mg PO DAILY dorzolamide-timolol 22.3-6.8 mg/mL 1 drp ophthalmic (eye) BID gabapentin 100 mg PO BEDTIME 30 days hydroxyzine HCl 25 mg PO TID PRN 10 days insulin NPH and regular human 100 unit/mL (70-30) (Novolin 70/30 U-100 Insulin) 30 units (0.3 mL) subcut BID 90 days insulin syringe-needle U-100 (BD Insulin Syringe Ultra-Fine) 1 mL miscellaneous BID 30 days insulin syringe-needle U-100 As directed- BID lancets As directed latanoprost 0.005% 1 drp ophthalmic (eye) BEDTIME lidocaine 5% 1 patch topical DAILY lisinopril 40 mg PO DAILY 90 days pantoprazole 40 mg PO DAILY sennosides (senna) 8.6 mg PO DAILY PRN tramadol 50 mg PO BID PRN walker As directed Tobacco use date assessed: 03/17/25 Fall risk assessment: No Falls in past year Last assessed Fall Risk: 03/17/25 Dental Screening Dental Screen Date: 03/17/25 Did you have a dental visit in the last 12 months?: No Did you have a dental problem in the last 6 months where you did not have access to dental care?: No Was dental information given to patient?: No HPI DM, hyperlipidemia, HTN, neuropathy HPI Details Patient comes in today for her follow up visit - is accompanied as usual by her daughter Patient continues to complain of multiple joint pains, diffuse myalgia and recurrent pain/burning sensation/numbness of both feet and lower legs She was sent previously for EMG and NCV for further evaluation but she refused to go for the tests as she states that it hurts too much to get the tests done Her daughter adds that she stopped giving patient her Duloxetine as she feels that this is contributing to patient's recurrent dizziness although patient continues to complain of dizziness even after she stopped taking her Duloxetine She denies any headaches lately Denies any chest pains, no increased SOB No nausea/vomiting, no abdominal pain No change in bowel habits noted She was not able to get her follow up labs done prior to her appointment today although she did have labs done back in December 2024 [facility] Medical History Normal colonoscopy (~01/09/07) Urinary incontinence Hypercalcemia Chronic kidney disease, stage III (moderate) Overweight (BMI 25.0-29.9) 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 Mother Diabetes Stroke Son No problems noted. Son No problems noted. Daughter No problems noted. Social History Household Members: None Housing: Apartment Do you presently have visiting nurse or other home services: Yes Alcohol intake: never Patient Tobacco Use Status: Never used Tobacco e-Cigarette/Vaping Use: Never Used Second Hand Smoke Exposure: Yes service: No Current occupational status: retired and disabled Cognitive needs: No Hearing needs: No Vision needs: Yes (Glasses) Questionnaire PHQ-9 Over the last 2 weeks, how often have you been bothered by any of the following problems? 1. Little interest or pleasure in doing things: not at all 2. Feeling down, depressed, or hopeless: not at all 3. Trouble falling or staying asleep, or sleeping too much: several days 4. Feeling tired or having little energy: several days 5. Poor appetite or overeating: several days 6. Feeling bad about yourself - or that you are a failure or have let yourself or your family down: not at all 7. Trouble concentrating on things, such as reading the newspaper or watching television: more than half the days 8. Moving or speaking so slowly that other people could have noticed. Or the opposite - being so fidgety or restless that you have been moving around a lot more than usual: more than half the days 9. Thoughts that you would be better off or of hurting yourself in some way: not at all Total score: 7 Depression Screening Interpretation: Positive Depression Screening Follow-up: Existing condition and In treatment Depression Screening Done: Yes 55362 - PHQ-9 Billing: Yes Source: Developed by Drs. Jonathan Miles, Maureen Woodruff, David Brennan and colleagues, with an educational jose from [employer]. Thrive Questionnaire Date Thrive assessed: 03/17/25 I am a: Patient What is your living situation today?: I have a steady place to live Within the past 12 months, did the food you bought not last and you didn't have the money to get more?: Never true Within the past 12 months, did you worry whether your food would run out before you got money to buy more?: Never true Do you have trouble paying for medicines?: No Do you have trouble getting transportation to medical appointments?: No Do you have trouble paying your heating and electricity bill?: No Do you have trouble taking care of your child, family member or friend?: Yes Do you have trouble with day-to-day activities such as bathing, preparing meals, shopping, managing finances, etc.?: Yes Are you currently unemployed and looking for a job?: No Are you interested in more education?: No Please select the resources that you would like help with: None Currently or been in a relationship where the following occur: No concerns reported THRIVE Score: 0 AUDIT C Alcohol Use Questionnaire (AUDIT-C) 1. How often do you have a drink containing alcohol?: Never 3. How often do you have six or more drinks on one occasion?: Never Total Score: 0 Score Reviewed/Action Taken: Yes CATHIE-7 AMB Questionnaire CATHIE-7 Date CATHIE - 7 assessed: 03/17/25 Feeling nervous, anxious, or on edge: 0 = Not at all Not being able to stop or control worryin = Not at all Worrying too much about different things: 0 = Not at all Trouble relaxin = Not at all Being so restless that it is hard to sit still: 0 = Not at all Becoming easily annoyed or irritable: 0 = Not at all Feeling afraid as if something awful might happen: 0 = Not at all Total CATHIE-7 score (0-4 normal; 5-9 mild; 10-14 moderate; 15-21 severe): 0 Source: Developed by Drs. Jonathan Miles, Maureen Woodruff, David Brennan and colleagues, with an educational jose from [employer]. Review of Systems Const Denies chills, Reports fatigue, Denies fever(s) and Denies headache(s) ENT Denies dysphagia, Reports dizziness (on and off), Denies otalgia, Denies headache(s), Denies neck pain, Denies odynophagia and Denies sore throat Card Denies chest pain, Denies palpitations and Denies dyspnea Resp Denies cough, Denies dyspnea and Denies wheezing GI Denies abdominal pain, Reports constipation (better controlled lately), Denies dysphagia, Denies heartburn, Denies diarrhea, Denies nausea, Denies odynophagia and Denies vomiting Denies nocturia, Denies dysuria and Denies urinary urgency Musc Reports back pain (over the lumbar spine - chronic ), Reports arthralgias (over both knees), Denies neck pain and Reports tingling (on and off over both lower extremities) Skin/Breast Denies rash Neuro Reports dizziness (on and off), Denies headache(s), Reports tingling (on and off over both lower extremities) and Reports paresthesias (both feet, on and off) Psych Denies anxiety and Denies depression Endo Reports fatigue and Denies palpitations Ian/Lymph Denies easy bruising Aller/Immun Denies wheezing Physical exam (Primary Care) Vital Signs: Last Vital Signs Pulse 70 03/17/25 13:36 BP 132/88 03/17/25 13:36 Pulse Ox 98 03/17/25 13:36 Oxygen Delivery Method Room Air 03/17/25 13:36 BMI result Body Mass Index 20.5 Tobacco/Smoking Status: Tobacco use Status Tobacco use date assessed 03/17/25 03/17/25 13:40 Patient Tobacco Use Status Never used Tobacco 03/17/25 13:40 e-Cigarette/Vaping Use Never Used 03/17/25 13:40 PHQ-9: PHQ-9 Score PHQ-9: Total score 7 03/17/25 14:09 Depression Screening Interpretation: Positive Depression Screening Follow-up: Existing condition and In treatment Thrive Assessment: Date of Thrive Assessment Date Thrive assessed 03/17/25 03/17/25 13:47 Currently or been in a relationship where the following occur: No concerns reported Const General: no acute distress and alert HENMT Ears: TM's normal bilaterally and EAC's normal Throat: Yes posterior oropharynx normal and Yes tonsils normal (no TP congestion) Neck Neck: Yes no lymphadenopathy and Yes supple Thyroid: Thyroid normal Resp Auscultation: clear to auscultation bilaterally, no rales and no wheezes Cardio Rate: regular rate Rhythm: regular rhythm Heart sounds: no murmurs GI Palpation (GI): Soft to palpation and nontender Auscultation: normal bowel sounds General: Yes no CVA tenderness Back/Spine/Pelvis Back: no CVA tenderness Thoracic/Lumbar Spine: lumbar spinal tenderness Skin Rashes: no rashes Extrem Other: (+) multiple varicose veins/varicosities noted over both lower legs, ankles and feet General: No clubbing, No cyanosis and Yes pedal edema (1+ bilaterally) Results Reviewed Results Reviewed: Laboratory Tests 01/03/25 09:36 WBC 7.0 Hgb 10.1 L Hct 30.8 L Plt Count 121 L Sodium 141 Potassium 4.3 Creatinine 1.41 H Estimated GFR 35 Fasting Glucose 88 Hemoglobin A1c % 6.1 H Calcium 9.7 AST 22 ALT 14 Triglycerides 110 Cholesterol 132 LDL Cholesterol, Calc 63 HDL Cholesterol 47 Coding Level of Care Code Est Pt Level 4 (59053) Diagnoses Pure hypercholesterolemia E78.00 Type 2 diabetes mellitus with stage 3b chronic kidney disease, with long-term current use of insulin E11.22; N18.32; Z79.4 Chronic kidney disease stage: stage 3 (moderate) Chronic kidney disease stage 3 subtype: stage 3b (GFR 30-44) Diabetes mellitus mcfp insulin use: with mcfp use Benign essential hypertension I10 Stage 3b chronic kidney disease N18.32 Chronic kidney disease stage 3 subtype: stage 3b (GFR 30-44) Esophagitis K20.90 Anemia, unspecified type D64.9 Anemia type: unspecified type Peripheral polyneuropathy G62.9 Peripheral neuropathy type: polyneuropathy, unspecified Paresthesia of both lower extremities R20.2 Vitamin D deficiency E55.9 Constipation, unspecified constipation type K59.00 Constipation type: unspecified constipation type Hypercalcemia E83.52 Myalgia M79.10 Lumbar spondylosis M47.816 Primary osteoarthritis of both knees M17.0 Primary osteoarthritis of left foot M19.072 Glaucoma of both eyes, unspecified glaucoma type H40.9 Glaucoma type: unspecified Anxiety F41.9 Additional Codes PHQ-9 - 36287 - PHQ-9 Billing: Yes ([id number]) Assessment & Plan Assessment & Plan (1) Pure hypercholesterolemia: Code(s): E78.00 - Pure hypercholesterolemia, unspecified Category: Medical Plan: Patient was not able to get her follow up labs done prior to her appointment today although she did have some labs done back in December 2024, the results of which are reviewed and discussed today with patient's daughter Her cholesterol levels were at goal on her labs done in December 2024 Reinforced low cholesterol diet Continue Atorvastatin 80 mg QD and?Fish Oil (Fallentimber 3) capsules 1000 mg BID Will recheck her labs and fasting lipids in 4 months for follow-up (2) Type 2 diabetes mellitus with diabetic chronic kidney disease: Code(s): E11.22 - Type 2 diabetes mellitus with diabetic chronic kidney disease Category: Medical Qualifiers: Chronic kidney disease stage: stage 3 (moderate) Chronic kidney disease stage 3 subtype: stage 3b (GFR 30-44) 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 goal is systolic BP of at least 140 to 150 mm or less Continue Lisinopril 40 mg QD (4) Chronic kidney disease, stage III (moderate): Code(s): N18.30 - Chronic kidney disease, stage 3 unspecified Category: Medical Qualifiers: Chronic kidney disease stage 3 subtype: stage 3b (GFR 30-44) Qualified Code(s): N18.32 - Chronic kidney disease, stage 3b Plan: Stable - will continue to monitor GFR and serum creatinine regularly (5) Esophagitis: Code(s): K20.90 - Esophagitis, unspecified without bleeding Category: Medical Plan: Dietary restrictions reinforced Continue Pantoprazole 40 mg QD; she also used to take Sucralfate 1 gm QID but apparently stopped taking this a while back (6) Anemia: Code(s): D64.9 - Anemia, unspecified Category: Medical Qualifiers: Anemia type: unspecified type Qualified Code(s): D64.9 - Anemia, unspecified Plan: Patient was still anemic on her recent labs done a few months ago - H/H was at 10.1/30.8 back in December 2024 Her iron function studies were normal when previously checked so this is most likely anemia of chronic disease (CKD) She has responded to ROSA MARIA injections when needed in the past Follow up with hematology as scheduled (7) Peripheral neuropathy: Code(s): G62.9 - Polyneuropathy, unspecified Category: Medical Qualifiers: Peripheral neuropathy type: polyneuropathy, unspecified Qualified Code(s): G62.9 - Polyneuropathy, unspecified Plan: EMG and NCV done a couple of years ago 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 She has refused to go for repeat EMG and NCV lately Have reminded patient again that there are really no effective treatment for neuropathy and most Rx are?just for symptomatic relief but can be associated with potential side effects Patient is advised to continue taking her Magnesium Oxide tablets 1 to 2 times a day as this may provide some relief of her neuropathic symptoms (8) Paresthesia of both lower extremities: Code(s): R20.2 - Paresthesia of skin Category: Medical Plan: Patient is advised that her recurrent paresthesia and pain of both lower extremities are likely due to her neuropathy We sent her for repeat EMG and NCV for further evaluation but she did not want to go for the test as she feels it is too painful Continue Gabapentin 100 mg Q HS; she could not tolerate the Rx when we raised it up to 300 mg Continue Tramadol 50 mg BID PRN for severe pain (9) Vitamin D deficiency: Code(s): E55.9 - Vitamin D deficiency, unspecified Category: Medical Plan: Continue Vitamin D3 1000 units QD (10) Constipation: Comment: Will give Colace and senna. Patient educated on the importance of a high-fiber diet in the importance of regular bowel movements. Patient educated that chronic constipation can exacerbate or cause UTI symptoms. Will also draw labs Code(s): K59.00 - Constipation, unspecified Category: Medical Qualifiers: Constipation type: unspecified constipation type Qualified Code(s): K59.00 - Constipation, unspecified Plan: She is encouraged again on increased oral fluids and dietary fiber Continue Senna 8.6 mg Q HS and Docusate 100 mg QD; she has taken Miralax in the past but does not like taste of it (11) Hypercalcemia: Code(s): E83.52 - Hypercalcemia Category: Medical Plan: Corrected - advised that her serum calcium level has remained normal on her recent labs Will continue to monitor her serum calcium level regularly (12) Myalgia: Code(s): M79.10 - Myalgia, unspecified site Category: Medical Plan: ESR done a few months ago came back normal She was previously on Duloxetine 30 mg QD but her daughter stopped giving this to her recently as she felt that this was contributing to patient's recurrent dizziness (13) Lumbar spondylosis: Code(s): M47.816 - Spondylosis without myelopathy or radiculopathy, lumbar region Category: Medical Plan: Reinforced activity and weight lifting restrictions to minimize aggravating her back pain X-rays of the lumbar spine done in 2018 showed (+)? mild degenerative changes Advised again that if her low back pain persists or gets worse, will consider referring her back to physical therapy for further evaluation and management and/or repeat lumbar spine x-rays (14) Primary osteoarthritis of both knees: Code(s): M17.0 - Bilateral primary osteoarthritis of knee Category: Medical Plan: X-rays of both knees done a few months ago showed (+) mild OA changes in both knees Encouraged to continue regular knee exercises to help manage her knee symptoms and at her age, conservative treatment and management of her symptoms would be the best option (15) Primary osteoarthritis of left foot: Code(s): M19.072 - Primary osteoarthritis, left ankle and foot Category: Medical Plan: X-rays of the left foot and ankle done last year revealed also (+) mild OA changes -? will continue with conservative and symptomatic treatment only (16) Glaucoma of both eyes: Code(s): H40.9 - Unspecified glaucoma Category: Medical Qualifiers: Glaucoma type: unspecified Qualified Code(s): H40.9 - Unspecified glaucoma Plan: Continue Latanoprost solution 0.005% 1 drop into affected eye in the evening once a day and Dorzolamide HCL-Timolol Maleate solution 22.3-6.8 mg/mL 1 drop into affected eye twice a day Follow-up with Ophthalmology as scheduled (17) Anxiety: Code(s): F41.9 - Anxiety disorder, unspecified Category: Medical Plan: Continue Hydroxyzine 25 mg TID PRN Plan To return as scheduled in 4 months for her annual physical examination Orders: Orders Comprehensive [place]. Panel Fast 06/28/25 E78.00 - Pure hypercholesterolemia, unspecified, M79.10 - Myalgia, unspecified site, Z00.00 - Encounter for general adult medical examination without abnormal findings TSH reflex Free T4 06/28/25 E78.00 - Pure hypercholesterolemia, unspecified, M79.10 - Myalgia, unspecified site, Z00.00 - Encounter for general adult medical examination without abnormal findings UA CC w/rflx Micro + Cult 06/28/25 M79.10 - Myalgia, unspecified site, R30.0 - Dysuria, Z00.00 - Encounter for general adult medical examination without abnormal findings C Reactive Protein 06/28/25 M79.10 - Myalgia, unspecified site, Z00.00 - Encounter for general adult medical examination without abnormal findings Complete Blood Count Auto Diff 06/28/25 D64.9 - Anemia, unspecified, M79.10 - Myalgia, unspecified site, Z00.00 - Encounter for general adult medical examination without abnormal findings Lipid Panel 06/28/25 E78.00 - Pure hypercholesterolemia, unspecified, M79.10 - Myalgia, unspecified site, Z00.00 - Encounter for general adult medical examination without abnormal findings Hemoglobin A1c 06/28/25 E11.9 - Type 2 diabetes mellitus without complications, M79.10 - Myalgia, unspecified site, Z00.00 - Encounter for general adult medical examination without abnormal findings Microalbumin, Random (w Creat) 06/28/25 E11.9 - Type 2 diabetes mellitus without complications, M79.10 - Myalgia, unspecified site, Z00.00 - Encounter for general adult medical examination without abnormal findings Erythrocyte Sedimentation Rate 06/28/25 M79.10 - Myalgia, unspecified site, M79.7 - Fibromyalgia, Z00.00 - Encounter for general adult medical examination without abnormal findings Vitamin D 25-OH Total 06/28/25 E55.9 - Vitamin D deficiency, unspecified, M79.10 - Myalgia, unspecified site, Z00.00 - Encounter for general adult medical examination without abnormal findings Vitamin B12 and Folate 06/28/25 E53.8 - Deficiency of other specified B group vitamins, M79.10 - Myalgia, unspecified site, Z00.00 - Encounter for general adult medical examination without abnormal findings
--- OUTSIDE RECORDS SUMMARY | 2025-03-17 14:08 | XMS_ITS ---
Author Name Ellis COMPOUNDER FLAVORINGS,DIE MAKER STAMPING,FN P,SAMPLE WRAPPER, Daylin Address [address] [place] [address] Phone [phone] [facility] Care Team Providers Care Manager Editorial Name Role Phone Daylin Corral Unavailable [phone] [facility] Unavailable [phone] Reason for Referral Not Available Allergies, adverse [...] Available BD INSULIN SYR UF 1 ML [id number] INJECT 1 ML DIRECTED 2 TIMES A DAY FOR 30 DAYS 2022-09-14 No Data Available Pantoprazole Sodium 40 mg Tab delayed rel TAKE 1 TABLET BY MOUTH EVERY DAY 2023-01-30 No Data Available Aspirin 81 mg Tab delayed rel take 1 tablet orally once daily 2023-04-25 No Data Available Problem List Problem Status Onset Date Resolved Date Synopsis History of CVA (cerebrovascular accident)Hemiplegia and hemiparesis following cerebral infarction affecting left non-dominant side Active 2023-04-25 N/A History of CVA in 2021. No residual effects reported by daughter. Uses walker or cane to ambulate. Denies any compalints. Type 2 diabetes mellitus wit h stage 3b chronic kidney disease Active 2023-04-25 N/A Most recent labs obtained from outside records 12/01/22: GFR 35Follows up with PCP every 3 months.Avoid nephrotoxic medications (NSAIDS, high dose Gabapentin, Baclofen, Fleet Enema, Morphine/Codeine) Thrombocytopenia Active 2023-04-25 N/A Most rec ent labs obtained from outside records 12/01/22:Plt Count: 120Follows up with Occupational Psychologist, last visit 02/2023. Pending to schedule appt to follow up. Advised to schedule appt for follow up.Contact CB 24/ as needed. Diabetes mellitus without ophthalmic manifestationsGlaucoma Active 2023-04-25 N/A Denies an y acute complaint. Follows up with Virtualization Engineer every 4 months. Using:Dorzolamide HCl-Timolol Mal 22.3/6.8 mg/ML Solution 1 DROP BID.Latanoprost 0.005 % Solution INSTILL 1 DROP QDDoing well on current treatment.Denies any acute complaint.Continue treatment as prescribed, follow up as instructed.Contact CB 24/ as needed. Recurrent major depressive episodes, mild Active 2023-04-25 N/A Follows up with PCP every 3 months.Reports doing [...] Had a f/u with PCP in January. Type 2 diabetes mellitus wit h diabetic peripheral angiopathy without gangrene Active 2023-04-25 N/A Reports bilater al leg pain.Denies any skin ulcers at this time. Follows up with PCP every 3 months. Taking:Aspirin 81 mg Tab delayed rel take 1 tablet orally once dailyDoing well on current treatment.Denies any acute complaint.Continue treatment as prescribed, follow up as instructed.Contact CB 24/ as needed.04/02/24 : Continue current treatment plan as directed. Had a f/u with PCP in January. Type 2 diabetes mellitus wit h other specified complicationType 2 diabetes mellitus with hyperlipidemia Active 2023-04-25 N/A Fol lows up with: PCP every 3 months, next [...] Had a f/u with PCP in January. HTN (hypertension) Active 2023-04-25 N/A Follow s up with: PCP every 3 months, next [...] visit. Follow low Sodium diet. Contact CB / as needed. 04/02/24 : Continue current treatment plan as directed. Had a f/u with PCP in January. Anemia Active 2023-04-25 N/A Follows up aracelis h Occupational Psychologist, last visit 02/2023. Was receiving injections for anemia. Pending to schedule appt to follow up. Denies any acute complaint. Advised to schedule appt for follow up.Contact CB 24/7 as needed. 04/02/24 : Continue current treatment plan as directed. Had a f/u with PCP in January. GERD (gastroesophageal reflu x disease) Active 2023-04-25 N/A Follows up with PCP.Taking:Pantoprazole Sodium 40 mg Tab delayed rel TAKE 1 TABLET QDDenies any acute complaint.Follow up as instructed.Avoid triggers.Contact CB 24/7 as needed. 04/02/24 : Continue current treatment plan as directed. Had a f/u with PCP in January. Chronic low back pain Active 2023-04-25 N/A Rep orts chronic low back pain.Follows up with PCP every 3 months.Uses cane or walker to ambulate.Taking:Gabapen tin 100 mg Cap TAKE 1 CAPSULE BY MOUTH EVERYDAY AT BEDTIMEDenies any acute complaint.Continue treatment as prescribed, follow up as instructed.Contact CB 24/7 as needed.04/02/24 : Continue current treatment plan as directed. Had a f/u with PCP in January. Reports low back pain 01/28. Also takes Tylenol PRN Other problems related to medical facilities and other health care Active 2024-04-02 N/A DIABETES CONT INGENCY PLANMember to call for the following symptoms: Blood sugar >300 / Polydipsia/ PolyuriaPlanned intervention: Start Short-acting insulin- Novolog Give short acting- if BG 250-300- 8U, 300-350- 10u, 350-400- 12u ,400-450- 14u/ Increase Novolin to 50 U/ Encourage adequate water intake/ Elevate legs/ Limit high-sugar and high-carbohydrate foods/ Go for a walk Encounters Encounters Type Facility Date of Service Diagnosis/Co mplaint New patient,40-59min; chronic exacerbation, 2 stable chronic or 1 acute illness add add modifier 95 for video (do not use for phone, instead use 19731-94) [facility], ([place]) 04/25/2023 Type 2 diabetes mellitus wit h [...] (do not use for phone, instead use 40019-46) [facility], ([place]) 04/25/2023 New patient,40-59min; chronic exacerbation, 2 stable chronic or 1 acute illness add add modifier 95 for video (do not use for phone, instead use 44249-65) [facility], ([place]) 04/25/2023 New patient,40-59min; chronic exacerbation, 2 stable chronic or 1 acute illness add add modifier 95 for video (do not use for phone, instead use 38731-61) [facility], ([place]) 04/25/2023 New patient,40-59min; chronic exacerbation, 2 stable chronic or 1 acute illness add add modifier 95 for video (do not use for phone, instead use 20127-18) [facility], ([place]) 04/25/2023 New patient,40-59min; chronic exacerbation, 2 stable chronic or 1 acute illness add add modifier 95 for video (do not use for phone, instead use 68089-22) [facility], ([place]) 04/25/2023 New patient,40-59min; chronic exacerbation, 2 stable chronic or 1 acute illness add add modifier 95 for video (do not use for phone, instead use 59487-94) [facility], ([place]) 04/25/2023 New patient,40-59min; chronic exacerbation, 2 stable chronic or 1 acute illness add add modifier 95 for video (do not use for phone, instead use 66781-36) [facility], ([place]) 04/25/2023 New patient,40-59min; chronic exacerbation, 2 stable chronic or 1 acute illness add add modifier 95 for video (do not use for phone, instead use 94910-05) [facility], ([place]) 04/25/2023 New patient,40-59min; chronic exacerbation, 2 stable chronic or 1 acute illness add add modifier 95 for video (do not use for phone, instead use 30970-27) [facility] ([place] 04/25/2023 Estab. patient 30-39min; chronic exacerbation, 2 stable chronic or 1 acute illness add add modifier 95 for video, (do not use for phone, instead use 29527-11) [facility] ([place]) 04/02/2024 Major depressive disorder, recurrent, mildHemiplga following [...] (do not use for phone, instead use 36961-54) [facility] [place] 04[place]02/20[place] Estab. patient 30-39min; chronic exacerbation, 2 stable chronic or 1 acute illness add add modifier 95 for video, (do not use for phone, instead use 34319-36) [facility] ([place] 04/02/20[place] Estab. patient 30-39min; chronic exacerbation, 2 stable chronic or 1 acute illness add add modifier 95 for video, (do not use for phone, instead use 77578-22) [facility] ([place] 04/02/2024 Estab. patient 30-39min; chronic exacerbation, 2 stable chronic or 1 acute illness add add modifier 95 for video, (do not use for phone, instead use 93808-78) [facility], ([place]) 04/02/2024 Estab. patient 30-39min; chronic exacerbation, 2 stable chronic or 1 acute illness add add modifier 95 for video, (do not use for phone, instead use 79568-09) [facility] ([place]) 04/02/2024 Estab. patient 30-39min; chronic exacerbation, 2 stable chronic or 1 acute illness add add modifier 95 for video, (do not use for phone, instead use 19251-22) [facility] ([place]) 04/02/2024 Estab. patient 30-39min; chronic exacerbation, 2 stable chronic or 1 acute illness add add modifier 95 for video, (do not use for phone, instead use 12614-57) [facility], ([place]) 04/02/2024 Vital Signs Date of Collection Vitals [...] tive Time Current Smoking Status Former smoker 2025-02-19 10 Sex Female History of Procedures Procedures Service Procedure code Service date Servicing provider Phone# New patient,40-59min; chronic exacerbation, 2 stable chronic or 1 acute illness add add modifier 95 for video (do not use for phone, instead use 54926-79) [id number] 2023-04-25 No Data Available No Data Availa [...] Available Advance care planning discussed and documented advance care plan or surrogate decision-maker was documented in the medical record. ([id number]) [id number] 2023-04-25 No Data Available No Data Availa ble Estab. patient 30-39min; chronic exacerbation, 2 stable chronic or 1 acute illness add add modifier 95 for video, (do not use for phone, instead use 34690-13) [id number] 2024-04-02 No Data Available No Data Availa [...] ble Advance care planning discussed and documented advance care plan or surrogate decision-maker was [...] modifier 95Advance care planning discussed and documented advance care plan or surrogate decision-maker was [...] outside records 12/01/22:Plt Count: 120Follows up with Occupational Psychologist, last visit 02/2023. Pending to schedule appt [...] needed.Denies any acute complaint. Follows up with Virtualization Engineer every 4 months. Using:Dorzolamide HCl-Timolol Mal 22.3/6.8 mg/ML Solution 1 DROP BID.Latanoprost 0.005 % Solution INSTILL 1 DROP QDDoing well on current treatment.Denies any acute complaint.Continue treatment as prescribed, follow up as instructed.Contact CB 24/7 as needed.Follows up with Occupational Psychologist, last visit 02/2023. Was receiving injections for [...] record ([id number])Advance care planning discussed and documented advance care plan or surrogate decision-maker was [...] outside records 12/01/22:Plt Count: 120Follows up with Occupational Psychologist, last visit 02/2023. Pending to schedule appt [...] January.Denies any acute complaint. Follows up with Virtualization Engineer every 4 months. Using:Dorzolamide HCl-Timolol Mal 22.3/6.8 mg/ML Solution 1 DROP BID.Latanoprost 0.005 % Solution INSTILL 1 DROP QDDoing well on current treatment.Denies any acute complaint.Continue treatment as prescribed, follow up as instructed.Contact CB 24/7 as needed.Follows up with Occupational Psychologist, last visit 02/2023. Was receiving injections for [...] questions or concerns. Discussed how to contact [facility] via phone or tablet. 24/7 phone number provided. 2024-04-02 Continue taking medi cations as directed and keep all follow up appointments with established PCP and Specialist. Health Concerns Date Concern 2024-04-02 Visit completed in g audio/video.Patient/Guardian agreed to visit via telehealth. Today, [...] desiredDo you have a Durable Power of Rehabilitation Counselor for Healthcare, or Healthcare Proxy Or Guardianship? [...]
--- OUTSIDE RECORDS SUMMARY | 2025-03-17 14:08 | XMS_ITS | Clinical Summary ---
Author Organization [facility] Address [address] [place] [address] Phone Care Team Providers Care Cork Sorter Name Role Phone Unavailable Primary Care Provider Unavailabl e Social History Tobacco Use Types Packs/Day Years Used Date Smoking Tobacco: Never Assessed Education Answer Date Recorded Are you interested in more education? Not on lili e 12/17/2022 Are you concerned about learning? Not on file 12/17/2022 No 12/17/2022 No 12/17/2022 Digital Access Answer Date Recorded No 01/17/2023 No 01/17/2023 Reliable internet access at home? Not on file 01/17/2023 Device with a working camera? Not on file Comments Unknown Sex and Gender Information Value Date Recorded Sex Assigned at Not on file Legal Sex Female 11:57 AM EDT Gender Identity Not on file Sexual Orientation Not on file Plan of Treatment Not on file Medical Devices Not on file Additional Source Comments The information contained in this document represents components of the legal health record. It is not the complete legal health record.[facility]
== END 2025-03-17 14:15 | disposition home or self-care (01) ==
LOC: HO.HMCH 13:26
PROVIDERS: PCP Internal Medicine; Visit Provider Internal Medicine
DX: I12.9 Hypertensive chronic kidney disease with stage 1 through stage 4 chronic kidney disease, or unspecified chronic kidney disease (principal); E11.22 Type 2 diabetes mellitus with diabetic chronic kidney disease; N18.32 Chronic kidney disease, stage 3b; Z79.4 Long term (current) use of insulin; E78.00 Pure hypercholesterolemia, unspecified; K20.90 Esophagitis, unspecified without bleeding; D64.9 Anemia, unspecified; G62.9 Polyneuropathy, unspecified; R20.2 Paresthesia of skin; E55.9 Vitamin D deficiency, unspecified; K59.00 Constipation, unspecified; E83.52 Hypercalcemia

== ENCOUNTER → 2025-03-17 13:25 | Outpatient (BNVA) | payer OTHER, SELFPAY | PROVIDERS: PCP Internal Medicine; Visit Provider Internal Medicine | DX: E78.00 Pure hypercholesterolemia, unspecified (principal); I12.9 Hypertensive chronic kidney disease with stage 1 through stage 4 chronic kidney disease, or unspecified chronic kidney disease; E11.22 Type 2 diabetes mellitus with diabetic chronic kidney disease; N18.32 Chronic kidney disease, stage 3b; Z79.4 Long term (current) use of insulin; K20.90 Esophagitis, unspecified without bleeding; D64.9 Anemia, unspecified; G62.9 Polyneuropathy, unspecified; R20.0 Anesthesia of skin; K59.00 Constipation, unspecified; E83.52 Hypercalcemia; M79.10 Myalgia, unspecified site; M47.816 Spondylosis without myelopathy or radiculopathy, lumbar region; M17.0 Bilateral primary osteoarthritis of knee; M19.072 Primary osteoarthritis, left ankle and foot; H40.9 Unspecified glaucoma; F41.9 Anxiety disorder, unspecified | CPT/HCPCS: 96127; 99212 ==

== ENCOUNTER 2025-07-14 12:25 | Outpatient (AMB) | payer OTHER, SELFPAY ==
--- NOTE | 2025-07-14 12:31 | A.OFFPC_ITS ---
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: No Accompanied by: Self / Same As Patient Allergies insulin isophane (NPH) (Humulin 70/30 U-100 Insulin) Allergy (Unknown, Verified 07/14/25 12:44) choking sensation insulin regular (Humulin 70/30 U-100 Insulin) Allergy (Unknown, Verified 07/14/25 12:44) choking sensation metformin Adverse Reaction (Unknown, Verified 07/14/25 12:44) dizziness, stomach upset Medication List - Last Reconciled 07/14/25 by Aris Pierce MD aspirin 81 mg PO DAILY 90 days atorvastatin 80 mg PO BEDTIME blood sugar diagnostic (Accu-Chek Guide test strips) As directed- TID blood-glucose meter (Accu-Chek Guide Me Glucose Meter) As directed- TID cholecalciferol (vitamin D3) 25 mcg PO DAILY 90 days docusate sodium (Colace) 100 mg PO DAILY dorzolamide-timolol 22.3-6.8 mg/mL 1 drp ophthalmic (eye) BID duloxetine 30 mg PO DAILY 30 days gabapentin 100 mg PO BEDTIME 30 days hydroxyzine HCl 25 mg PO TID PRN 10 days insulin NPH and regular human 100 unit/mL (70-30) (Novolin 70/30 U-100 Insulin) 30 units (0.3 mL) subcut BID 90 days insulin syringe-needle U-100 (BD Insulin Syringe Ultra-Fine) 1 mL miscellaneous BID 30 days insulin syringe-needle U-100 As directed- BID lancets (Accu-Chek Softclix Lancets) As directed- TID latanoprost 0.005% 1 drp ophthalmic (eye) BEDTIME lidocaine 5% 1 patch topical DAILY lisinopril 40 mg PO DAILY 90 days pantoprazole 40 mg PO DAILY sennosides (senna) 8.6 mg PO DAILY PRN tramadol 50 mg PO BID PRN walker As directed Tobacco use date assessed: 07/14/25 Fall risk assessment: No Falls in past year Last assessed Fall Risk: 07/14/25 Dental Screening Dental Screen Date: 07/14/25 Did you have a dental visit in the last 12 months?: No Did you have a dental problem in the last 6 months where you did not have access to dental care?: No Was dental information given to patient?: No HPI Annual exam - see comments HPI Details Patient comes in today for her annual physical examination - she is accompanied by her daughter as usual States that she has been experiencing increased tearing from her left eye over the past couple of days; denies any eye pain or discomfort or increased blurring of vision Patient is also currently complaining of too much saliva in her mouth, per her daughter but her daughter has not noticed any drooling on the patient's part and she's had no trouble swallowing when she is eating or drinking Relates (+) occasional dizziness lately but denies any headaches Her daughter states that patient sleeps fairly well at night She denies any chest pains, no increased SOB No nausea/vomiting, no abdominal pain No change in bowel habits noted She's had no acute urinary symptoms She was not able to get her labs done prior to her appointment today and we have advised her daughter to try to help her get these done AIDEE as she has not had any follow up labs done since December 2024 At her current age and with her declining cognition, patient no longer has to keep up with her routine cancer screenings, including her colonoscopy, mammography and gynecology exam/pap smears [facility] Medical History Normal colonoscopy (~01/09/07) Urinary incontinence Hypercalcemia Chronic kidney disease, stage III (moderate) Overweight (BMI 25.0-29.9) 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 Mother Diabetes Stroke Son No problems noted. Son No problems noted. Daughter No problems noted. Social History (Reviewed 07/14/25 @ 12:33 by DEVAUGHN Marquez Household Members: None Housing: Apartment Do you presently have visiting nurse or other home services: Yes Alcohol intake: never Patient Tobacco Use Status: Never used Tobacco e-Cigarette/Vaping Use: Never Used Second Hand Smoke Exposure: Yes service: No Current occupational status: retired and disabled Cognitive needs: No Hearing needs: No Vision needs: Yes (Glasses) Questionnaire PHQ-9 Over the last 2 weeks, how often have you been bothered by any of the following problems? 1. Little interest or pleasure in doing things: not at all 2. Feeling down, depressed, or hopeless: not at all 3. Trouble falling or staying asleep, or sleeping too much: several days 4. Feeling tired or having little energy: several days 5. Poor appetite or overeating: several days 6. Feeling bad about yourself - or that you are a failure or have let yourself or your family down: not at all 7. Trouble concentrating on things, such as reading the newspaper or watching television: more than half the days 8. Moving or speaking so slowly that other people could have noticed. Or the opposite - being so fidgety or restless that you have been moving around a lot more than usual: more than half the days 9. Thoughts that you would be better off or of hurting yourself in some way: not at all Total score: 7 Depression Screening Interpretation: Positive Depression Screening Follow-up: Existing condition and In treatment Depression Screening Done: Yes 32134 - PHQ-9 Billing: Yes Source: Developed by Drs. Jonathan Miles, Maureen Woodruff, David Brennan and colleagues, with an educational jose from [employer]. Thrive Questionnaire Date Thrive assessed: 07/14/25 I am a: Patient What is your living situation today?: I have a steady place to live Within the past 12 months, did the food you bought not last and you didn't have the money to get more?: Never true Within the past 12 months, did you worry whether your food would run out before you got money to buy more?: Never true Do you have trouble paying for medicines?: No Do you have trouble getting transportation to medical appointments?: No Do you have trouble paying your heating and electricity bill?: No Do you have trouble taking care of your child, family member or friend?: Yes Do you have trouble with day-to-day activities such as bathing, preparing meals, shopping, managing finances, etc.?: Yes Are you currently unemployed and looking for a job?: No Are you interested in more education?: No Please select the resources that you would like help with: None Currently or been in a relationship where the following occur: No concerns reported THRIVE Score: 0 AUDIT C Alcohol Use Questionnaire (AUDIT-C) 1. How often do you have a drink containing alcohol?: Never 3. How often do you have six or more drinks on one occasion?: Never Total Score: 0 Score Reviewed/Action Taken: Yes CATHIE-7 AMB Questionnaire CATHIE-7 Date CATHIE - 7 assessed: 07/14/25 Feeling nervous, anxious, or on edge: 0 = Not at all Not being able to stop or control worryin = Not at all Worrying too much about different things: 0 = Not at all Trouble relaxin = Not at all Being so restless that it is hard to sit still: 0 = Not at all Becoming easily annoyed or irritable: 0 = Not at all Feeling afraid as if something awful might happen: 0 = Not at all Total CATHIE-7 score (0-4 normal; 5-9 mild; 10-14 moderate; 15-21 severe): 0 Source: Developed by Drs. Jonathan Miles, Maureen Woodruff, David Brennan and colleagues, with an educational jose from [employer]. Review of Systems Const Denies chills, Denies difficulty sleeping, Reports fatigue, Denies fever(s) and Denies headache(s) Eyes Details: increased tearing from the left eye over the past couple of days Denies blurry vision, Denies change in vision, Denies irritation and Denies itchy eyes ENT Details: increased saliva in mouth, per patient but no c/o drooling noted Denies dysphagia, Reports dizziness (occasionally), Denies otalgia, Denies headache(s), Denies neck pain, Denies odynophagia and Denies sore throat Card Denies chest pain, Denies palpitations and Denies dyspnea Resp Denies chest congestion, Denies cough, Denies dyspnea and Denies wheezing GI Denies abdominal pain, Reports constipation (better controlled lately), Denies dysphagia, Denies heartburn, Denies diarrhea, Denies nausea, Denies odynophagia and Denies vomiting Denies difficulty voiding, Denies nocturia, Denies dysuria and Denies urinary urgency Musc Reports back pain (over the lumbar spine - chronic ), Reports arthralgias (over both knees), Denies neck pain, Reports stiffness and Reports tingling (on and off over both lower extremities) Skin/Breast Denies rash Neuro Reports dizziness (occasionally), Denies headache(s), Reports tingling (on and off over both lower extremities) and Reports paresthesias (both feet, on and off) Psych Denies anxiety and Denies depression Endo Reports fatigue and Denies palpitations Ian/Lymph Denies easy bruising Aller/Immun Denies itchy eyes and Denies wheezing Physical exam (Primary Care) Vital Signs: Last Vital Signs Pulse 60 07/14/25 12:32 BP 116/80 07/14/25 12:32 Pulse Ox 97 07/14/25 12:32 Oxygen Delivery Method Room Air 07/14/25 12:32 BMI result Body Mass Index 20.4 Tobacco/Smoking Status: Tobacco use Status Tobacco use date assessed 07/14/25 07/14/25 12:40 Patient Tobacco Use Status Never used Tobacco 07/14/25 12:40 e-Cigarette/Vaping Use Never Used 07/14/25 12:40 PHQ-9: PHQ-9 Score PHQ-9: Total score 7 07/14/25 12:40 Depression Screening Interpretation: Positive Depression Screening Follow-up: Existing condition and In treatment Thrive Assessment: Date of Thrive Assessment Date Thrive assessed 07/14/25 07/14/25 12:40 Currently or been in a relationship where the following occur: No concerns re ported Const General: no acute distress and alert HENMT Head: Yes normocephalic and Yes atraumatic Ears: TM's normal bilaterally and EAC's normal General nose exam: No nasal discharge present Face and sinus: Yes normal facial exam and Yes sinuses nontender Teeth and gingiva: dentition normal Throat: Yes posterior oropharynx normal and Yes tonsils normal (no TP congestion) Eyes Eyelids: Yes eyelids normal Conjunctivae: conjunctivae normal EOM: EOMs intact bilaterally Neck Neck: Yes supple and No lymphadenopathy Thyroid: Thyroid normal Resp Auscultation: clear to auscultation bilaterally, no rales and no wheezes Cardio Rate: regular rate Rhythm: regular rhythm Heart sounds: no murmurs GI Palpation (GI): Soft to palpation and nontender Auscultation: normal bowel sounds General: Yes no CVA tenderness Back/Spine/Pelvis Back: no CVA tenderness Thoracic/Lumbar Spine: lumbar spinal tenderness Skin Lesions: no lesions Rashes: no rashes Neuro General: moves all extremities and no focal motor deficits Extrem Other: (+) multiple varicose veins/varicosities noted over both lower legs, ankles and feet General: No clubbing, No cyanosis and Yes pedal edema (1+ bilaterally) Coding Level of Care Code Est Pt Prev Care >65y(49792) Diagnoses Annual physical exam Z00.00 Pure hypercholesterolemia E78.00 Type 2 diabetes mellitus with stage 3b chronic kidney disease, with long-term current use of insulin E11.22; N18.32; Z79.4 Diabetes mellitus termite technician insulin use: with termite technician use Chronic kidney disease stage: stage 3 (moderate) Chronic kidney disease stage 3 subtype: stage 3b (GFR 30-44) Benign essential hypertension I10 Stage 3b chronic kidney disease N18.32 Chronic kidney disease stage 3 subtype: stage 3b (GFR 30-44) Esophagitis K20.90 Anemia, unspecified type D64.9 Anemia type: unspecified type Dizziness R42 Peripheral polyneuropathy G62.9 Peripheral neuropathy type: polyneuropathy, unspecified Paresthesia of both lower extremities R20.2 Vitamin D deficiency E55.9 Constipation, unspecified constipation type K59.00 Constipation type: unspecified constipation type Hypercalcemia E83.52 Myalgia M79.10 Lumbar spondylosis M47.816 Primary osteoarthritis of both knees M17.0 Primary osteoarthritis of left foot M19.072 Glaucoma of both eyes, unspecified glaucoma type H40.9 Glaucoma type: unspecified Anxiety F41.9 Additional Codes PHQ-9 - 84313 - PHQ-9 Billing: Yes ([id number]) Assessment & Plan Assessment & Plan (1) Annual physical exam: Code(s): Z00.00 - Encounter for general adult medical examination without abnormal findings Category: Medical Plan: Patient did not get her labs done prior to coming in for her appointment today Have advised her daughter to help her get these done AIDEE as she has not had any follow up labs done in at least 6 months now - her previous lab orders are updated and printed out and handed to patient's daughter so she can bring her to get these done sometime soon to complete her annual exam today At her current age and with her declining cognition, patient no longer has to keep up with her routine cancer screenings, including her colonoscopy, mammography and gynecology exam/pap smears (2) Pure hypercholesterolemia: Code(s): E78.00 - Pure hypercholesterolemia, unspecified Category: Medical Plan: Patient was again not able to get her follow up labs done prior to her appointment today and have advised patient's daughter to try and help patient get her follow up labs done AIDEE Her cholesterol levels were at goal when they were last checked in December 2024 Reinforced low cholesterol diet Continue Atorvastatin 80 mg QD and?Fish Oil ([place] 3) capsules 1000 mg BID Will recheck her labs and fasting lipids again in 4 months for follow-up (3) Type 2 diabetes mellitus with diabetic chronic kidney disease: Code(s): E11.22 - Type 2 diabetes mellitus with diabetic chronic kidney disease Category: Medical Qualifiers: Diabetes mellitus termite technician insulin use: with snf use Chronic kidney disease stage: stage 3 (moderate) Chronic kidney disease stage 3 subtype: stage 3b (GFR 30-44) Qualified Code(s): E11.22 - Type 2 diabetes mellitus with diabetic chronic kidney disease; N18.32 - Chronic kidney disease, stage 3b; Z79.4 - correction (current) use of insulin Plan: Her HgbA1c was at 6.1% when they were last checked in December 2024 (in-office HgbA1c was previously at 6.2% early this year) - goal is at least between 7.0% to 7.5% or lower Reinforced diabetic diet Continue Novolin 70/30 30 units BID (4) Benign essential hypertension: Code(s): I10 - Essential (primary) hypertension Category: Medical Plan: Reinforced low-sodium diet -? goal is systolic BP of at least 140 to 150 mm or less Continue Lisinopril 40 mg QD (5) Chronic kidney disease, stage III (moderate): Code(s): N18.30 - Chronic kidney disease, stage 3 unspecified Category: Medical Qualifiers: Chronic kidney disease stage 3 subtype: stage 3b (GFR 30-44) Qualified Code(s): N18.32 - Chronic kidney disease, stage 3b Plan: Stable - will continue to monitor GFR and serum creatinine regularly (6) Esophagitis: Code(s): K20.90 - Esophagitis, unspecified without bleeding Category: Medical Plan: Dietary restrictions reinforced Continue Pantoprazole 40 mg QD; she also used to take Sucralfate 1 gm QID but she stopped taking this a while back (7) Anemia: Code(s): D64.9 - Anemia, unspecified Category: Medical Qualifiers: Anemia type: unspecified type Qualified Code(s): D64.9 - Anemia, unspecified Plan: Patient was still anemic, with her H/H at 10.1/30.8 back in December 2024 when she last had labs done Her iron function studies were normal when previously checked so this is most likely anemia of chronic disease (CKD) She has responded to ROSA MARIA injections when needed in the past Follow up with hematology as scheduled (8) Dizziness: Code(s): R42 - Dizziness and giddiness Category: Medical Plan: Discussed with patient's daughter that her recent on and off dizziness are most likely orthostatic or due to dehydration/hypovolemia but her daughter is requesting rfor some Rx that can help if needed Will send in Rx for Meclizine 12.5 mg TID PRN although advised that this will help more if her dizziness is due to vertigo or notion sickness (9) Peripheral neuropathy: Code(s): G62.9 - Polyneuropathy, unspecified Category: Medical Qualifiers: Peripheral neuropathy type: polyneuropathy, unspecified Qualified Code(s): G62.9 - Polyneuropathy, unspecified Plan: EMG and NCV done a couple of years ago 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 She has been refusing to go for repeat EMG and NCV lately Have reminded patient again that there are really no effective treatment for neuropathy and most Rx are?just for symptomatic relief but can be associated with potential side effects Patient is advised to continue taking her Magnesium Oxide tablets 1 to 2 times a day as this may provide some relief of her neuropathic symptoms (10) Paresthesia of both lower extremities: Code(s): R20.2 - Paresthesia of skin Category: Medical Plan: Patient is advised that her recurrent paresthesia and pain of both lower extremities are likely due to her neuropathy We sent her for repeat EMG and NCV for further evaluation but she did not want to go for the test as she feels it is too painful Continue Gabapentin 100 mg Q HS; she could not tolerate the Rx when we raised it up to 300 mg Continue Tramadol 50 mg BID PRN for severe pain but have cautioned her daughter again that this may cause drowsiness (11) Vitamin D deficiency: Code(s): E55.9 - Vitamin D deficiency, unspecified Category: Medical Plan: Continue Vitamin D3 1000 units QD (12) Constipation: Comment: Will give Colace and senna. Patient educated on the importance of a high-fiber diet in the importance of regular bowel movements. Patient educated that chronic constipation can exacerbate or cause UTI symptoms. Will also draw labs Code(s): K59.00 - Constipation, unspecified Category: Medical Qualifiers: Constipation type: unspecified constipation type Qualified Code(s): K59.00 - Constipation, unspecified Plan: She is encouraged again on increased oral fluids and dietary fiber intake Continue Senna 8.6 mg Q HS and Docusate 100 mg QD; she has taken Miralax in the past but does not like taste of it (13) Hypercalcemia: Code(s): E83.52 - Hypercalcemia Category: Medical Plan: Corrected - advised that her serum calcium level has remained normal on her labs back in December 2024 Will continue to monitor her serum calcium level regularly (14) Myalgia: Code(s): M79.10 - Myalgia, unspecified site Category: Medical Plan: ESR done a few months ago came back normal She was previously on Duloxetine 30 mg QD but her daughter stopped giving this to her recently as she felt that this was contributing to patient's recurrent dizziness (15) Lumbar spondylosis: Code(s): M47.816 - Spondylosis without myelopathy or radiculopathy, lumbar region Category: Medical Plan: Reinforced activity and weight lifting restrictions to minimize aggravating her back pain X-rays of the lumbar spine done in 2018 showed (+)? mild degenerative changes They have been advised again that if her low back pain persists or gets worse, we will consider referring her back to physical therapy for further evaluation and management and/or repeat lumbar spine x-rays (16) Primary osteoarthritis of both knees: Code(s): M17.0 - Bilateral primary osteoarthritis of knee Category: Medical Plan: X-rays of both knees done a few months ago showed (+) mild OA changes in both knees They are encouraged again to continue regular knee exercises to help manage her knee symptoms and at her age, conservative treatment and management of her symptoms would be the best option (17) Primary osteoarthritis of left foot: Code(s): M19.072 - Primary osteoarthritis, left ankle and foot Category: Medical Plan: X-rays of the left foot and ankle done last year revealed also (+) mild OA changes Will continue with conservative and symptomatic treatment only (18) Glaucoma of both eyes: Code(s): H40.9 - Unspecified glaucoma Category: Medical Qualifiers: Glaucoma type: unspecified Qualified Code(s): H40.9 - Unspecified glaucoma Plan: Continue Latanoprost solution 0.005% 1 drop into affected eye in the evening once a day and Dorzolamide HCL-Timolol Maleate solution 22.3-6.8 mg/mL 1 drop into affected eye twice a day Follow-up with Ophthalmology as scheduled (19) Anxiety: Code(s): F41.9 - Anxiety disorder, unspecified Category: Medical Plan: Continue Hydroxyzine 25 mg TID PRN Plan Follow up in 4 months Orders: Orders Microalbumin, Random (w Creat) 4 Months E11.9 - Type 2 diabetes mellitus without complications TSH reflex Free T4 4 Months E78.00 - Pure hypercholesterolemia, unspecified UA CC w/rflx Micro + Cult 4 Months R30.0 - Dysuria Vitamin B12 and Folate 4 Months E53.8 - Deficiency of other specified B group vitamins Hemoglobin A1c 4 Months E11.9 - Type 2 diabetes mellitus without complications Complete Blood Count Auto Diff 4 Months D64.9 - Anemia, unspecified Comprehensive [place]. Panel Fast 4 Months E78.00 - Pure hypercholesterolemia, unspecified Lipid Panel 4 Months E78.00 - Pure hypercholesterolemia, unspecified Vitamin D 25-OH Total 4 Months E55.9 - Vitamin D deficiency, unspecified Medications: New meclizine 12.5 mg PO TID PRN 30 tabs 0RF dizziness
[2025-07-14 12:32] VITALS: BP 116/80; PULSE 60; O2SAT 97; BMI 20.4
== END 2025-07-14 13:18 | disposition home or self-care (01) ==
LOC: HO.HMCH 12:26
PROVIDERS: PCP Internal Medicine; Visit Provider Internal Medicine
DX: Z00.00 Encounter for general adult medical examination without abnormal findings (principal); E78.00 Pure hypercholesterolemia, unspecified; E11.22 Type 2 diabetes mellitus with diabetic chronic kidney disease; N18.32 Chronic kidney disease, stage 3b; Z79.4 Long term (current) use of insulin; I10 Essential (primary) hypertension; K20.90 Esophagitis, unspecified without bleeding; D64.9 Anemia, unspecified; R42 Dizziness and giddiness; G62.9 Polyneuropathy, unspecified; R20.2 Paresthesia of skin; E55.9 Vitamin D deficiency, unspecified; K59.00 Constipation, unspecified; E83.52 Hypercalcemia; M79.10 Myalgia, unspecified site; M47.816 Spondylosis without myelopathy or radiculopathy, lumbar region; M17.0 Bilateral primary osteoarthritis of knee; M19.072 Primary osteoarthritis, left ankle and foot; H40.9 Unspecified glaucoma; F41.9 Anxiety disorder, unspecified

== ENCOUNTER → 2025-07-14 12:25 | Outpatient (BNVA) | payer OTHER, SELFPAY | PROVIDERS: PCP Internal Medicine; Visit Provider Internal Medicine | DX: Z00.00 Encounter for general adult medical examination without abnormal findings (principal); E78.00 Pure hypercholesterolemia, unspecified; E11.22 Type 2 diabetes mellitus with diabetic chronic kidney disease; N18.32 Chronic kidney disease, stage 3b; Z79.4 Long term (current) use of insulin; I10 Essential (primary) hypertension; K20.90 Esophagitis, unspecified without bleeding; D64.9 Anemia, unspecified; R42 Dizziness and giddiness; G62.9 Polyneuropathy, unspecified; R20.2 Paresthesia of skin; K59.00 Constipation, unspecified; E83.52 Hypercalcemia; M47.816 Spondylosis without myelopathy or radiculopathy, lumbar region; M79.10 Myalgia, unspecified site; M17.0 Bilateral primary osteoarthritis of knee; M19.072 Primary osteoarthritis, left ankle and foot; H40.9 Unspecified glaucoma; F41.9 Anxiety disorder, unspecified; Z13.31 Encounter for screening for depression; Z13.39 Encounter for screening examination for other mental health and behavioral disorders | CPT/HCPCS: 96127; 99397 ==